=== PATIENT | male | born 1990 | race Caucasian/White ===

== ENCOUNTER 2024-02-06 12:17 | Emergency (ER) | payer OTHER, SELFPAY ==
[2024-02-06 12:25] VITALS: BP 112/82
[2024-02-06 12:45] LABS: % Basophils 0.9 % (0-2); % Eosinophils 1.9 % (0-6); % Immature Granulocytes 0.3 % (0-0.5); % Lymphocytes 28.1 % (20.5-51.1); % Monocytes 5.9 % (1.7-9.3); % Neutrophils 62.9 % (42.2-75.2); Absolute Basophils 0.1 10^3/uL (0-0.2); Absolute Eosinophils 0.1 10^3/uL (0-0.7); Absolute Lymphocytes 1.9 10^3/uL (1.2-3.4); Absolute Monocytes 0.4 10^3/uL (0.1-0.6); Absolute Neutrophils 4.4 10^3/uL (1.4-6.5); Hematocrit 45.7 % (39.0-52.0); Hemoglobin 16.5 g/dL (13.0-18.0); Mean Corp Hgb Conc. 36.1 g/dL (33.0-37.0); Mean Corpuscular Volume 91.4 fL (80.0-94.0); Mean Platelet Volume 9.1 fL (7.4-10.4); Nucleated Red Blood Cells % 0 % (-); Platelet Count 283 10^3/uL (130-400); White Blood Cell Count 6.9 10^3/uL (4.8-10.8)
--- NOTE | 2024-02-06 12:50 | ED.GENMED ---
History of Present Illness
General
Chief Complaint: Flank Pain
Source: patient
Exam Limitations: none
Time Seen by Provider: 02/06/24 12:50
Nursing documentation reviewed up to this point in time: agreed with
Travel History
Have you had any contact with someone who has COVID-19?: No
Do you have any symptoms of coronavirus? Fever > 100 degrees, chills, cough, shortness of breath, sore throat, loss of taste or smell, muscle aches, or headache?: No
History of Present Illness
History of Present Illness:
33-year-old male with history of Crohn's, GERD, kidney stones, anxiety/depression presents with abdominal pain that he states is similar to previous kidney stone pain. States L side abd pain radiates over to right abdomen with 'kidney spasms' on the
left. These have been waxing and waning for a couple of weeks but got worse today. Denies fever/chills, denies n/v.
Has had diarrhea and is followed by his GI doctor for Crohn's and was recently on Xifaxan for 3 weeks[address] Has had neg CT and MRI for that type of abd pain.
Past History
Past History
ED Past Medical History: Psychiatric (Anxiety/depression) and Other (Crohn's disease. Kidney stones)
ED Past Surgical History: Urological (Lithotripsy 09/18) and Other (Terminal ileum removed)
Social History
Tobacco: Smoker
Alcohol: None
Personal: Single
Living: with family (lives with father)
Employment: Not employed
Review of Systems
Review of Systems
Allergies reviewed?: Yes
All Other Systems: ROS reviewed and negative except as documented in HPI and ROS
Constitutional: Denies fever or chills
Respiratory: Denies trouble breathing
Cardiac: Denies chest pain
ABD/GI: Reports abdominal pain and diarrhea (chronic working w his GI doctor for this); Denies nausea, vomiting, constipated, bloody stools or black stools
: Reports flank pain (left); Denies dysuria, frequency, difficulty voiding or urgency
Musculoskeletal: Reports no symptoms
Skin: Reports no symptoms
Neurological: Reports no symptoms
Phy Exam
Physical Exam
Physical Exam:
GENERAL: No acute distress. A&Ox3.
CONSTITUTIONAL: Afebrile.
RESPIRATORY: Regular respirations, nonlabored, lungs clear.
CARDIOVASCULAR: Regular rate and rhythm, no murmurs, no rubs.
GI: Soft, generally mildly tender, no guarding, normal BS
MUSCULOSKELETAL: Moves with ease. Well perfused.
SKIN: Warm, dry, pink
PSYCH: Normal mood and affect. Well kept, interactive and appropriate
NEUROLOGIC: Awake, alert and oriented. No focal neurological deficits
Course
Orders/Labs/Results
Orders:
Orders
02/06/24 12:36
CBC/With Diff [Complete Blood Count/With Diff] Urgent
Comprehensive Metabolic Panel Urgent
Lipase Urgent
Comment: LIPASE ADDED ON BY FLOOR 1PM 02-06-24
Urinalysis Reflex To Culture Urgent
Date Specimen was Collected: 02/06/24
Time Specimen was Collected: 12:28
02/06/24 13:05
Add On- LAB Urgent
Tests Added?: Lipase
02/06/24 13:06
CT Abd/pel Without Iv Or Oral Urgent
Comment:
Reason For Exam: abd pain L kidney pain hx kidney stones
02/06/24 13:07
0.9% Sodium Chloride 1000 ml [Nss] 1,000 ml IV BOLUS
Ketorolac [Toradol] 15 mg IV NOW STA
02/06/24 15:04
Tamsulosin [Flomax] 0.4 mg PO NOW STA
Abnormal Lab Results
02/06/24
12:36
MCH 33.0 H pg
(27.0-31.0)
Chloride 108 H mmol/L
(98-107)
04/12/24 12:36
02/06/24 12:36
Vital Signs
Initial and Last Documented VS:
Initial Vital Signs
Temp Pulse Resp BP Pulse Ox
98.2 F 103 18 112/82 98
02/06/24 12:25 02/06/24 12:25 02/06/24 12:25 02/06/24 12:25 02/06/24 12:25
Last Documented Vital Signs
Temp Pulse Resp BP Pulse Ox
98.2 F 103 18 112/82 98
02/06/24 12:25 02/06/24 12:25 02/06/24 12:25 02/06/24 12:25 02/06/24 12:25
MDM/Problems Addressed
Differential Diagnosis Includes:
Kidney/Ureteral stone, UTI, Crohn's flare,
MDM/Problems Addressed:
33-year-old male with history of Crohn's, GERD, kidney stones, anxiety/depression presents with abdominal pain that he states is similar to previous kidney stone pain. States L side abd pain radiates over to right abdomen with 'kidney spasms' on the
left. These have been waxing and waning for a couple of weeks but got worse today. Denies fever/chills, denies n/v.
Has had diarrhea and is followed by his GI doctor for Crohn's and was recently on Xifaxan for 3 weeks[address] Has had neg CT and MRI for that type of abd pain.
Afebrile, NAD
2:42 PM
CBC normal
CMP normal
UA negative
CT abdomen pelvis plain: Radiology report read: IMPRESSION:
1. Moderate left hydronephrosis and hydroureter secondary to a 6 mm calculus within the mid ureter.
2. Couple of adjacent punctate nephroliths within the midpole of the right kidney.
3. Postoperative findings within the right abdomen suggestive of prior ileocecectomy. Nonspecific submucosal fatty deposition throughout the colon.
Report texted to Dr. Purcell, urology who agrees since no sign of infection, a febrile, not significant pain, he can be placed on Flomax, prescription for pain medicine sent to his pharmacy and he will call his urologist today to make a follow-up
appointment.
Pt is totally comfortable with this plan. Pain is minimal at this time.
*Critical Care Note
Total Time (30-74mins, 75-104mins- exclusive of procedures): Not Applicable
ED Attending Note
-
Portions of this chart may have been created with voice recognition software.� Occasional wrong word or��sound alike� substitutions may have occurred due to the inherent limitations of voice recognition software.
Discharge Plan
Departure
Patient Disposition: Home (Routine Discharge)
Date of Disposition: 02/06/24
Time of Disposition: 15:04
Patient with high blood pressure during this ER visit?: No
Condition: Good
Discharge Problem:
Calculus of left ureter
Instructions: Kidney Stones (DC), How to Strain Your Urine, Narcotic Pain Medication
Prescriptions:
New
tamsulosin [Flomax] 0.4 mg capsule
0.4 mg PO DAILY Qty: 7 0RF
hydrocodone-acetaminophen 5-325 mg tablet
1 tab PO Q6H PRN (Reason: severe pain) Qty: 10 0RF
No Action
sulfamethoxazole-trimethoprim [Bactrim DS] 800-160 mg tablet
1 tab PO BID 7 Days Qty: 14 0RF
Referrals:
[facility], Urology [Other] - Tomorrow
Activity Restrictions/Additional Instructions:
As we discussed, call your urology office today to explain your CAT scan results and ask them when they want to see you for follow-up.
I sent a prescription to your pharmacy for Flomax to take daily, started tomorrow as you were given a dose here today and also for [place] which is hydrocodone to use if needed for significant pain.
Seek medical care immediately for fever, vomiting, worsening pain not relieved with prescribed medication or feeling sicker in any way.
Interventions
Interventions:
*Risk Screen - Suicide Last Done: 02/06/24 12:25
*General Assessment Last Done: 02/06/24 12:25
*Neglect/Abuse Screening Last Done: 02/06/24 12:25
*Nursing Disposition Last Done: 02/06/24 15:42
FM-Hlyluv-Dhoflacpam Assessment Last Done: 02/06/24 13:25
ED-Male Genitourinary Assessment Last Done: 02/06/24 13:25
Discharge Date and Time
Discharge Date/Time: 02/06/24 15:43
Print Language: MACEDONIAN
[2024-02-06 12:52] LABS: Urine Albumin Negative (Neg - Trace); Urine Bilirubin Negative (Negative); Urine Character Clear (Clear); Urine Color Yellow; Urine Glucose Negative (Negative); Urine Ketone Negative (Negative); Urine Leukocyte Negative (Negative); Urine Nitrite Negative (Negative); Urine Occult Blood Negative (Negative); Urine Urobilinogen Negative (Neg - 1+)
[2024-02-06 13:02] LABS: Potassium 4.2 mmol/L (3.5-5.1)
[2024-02-06 13:03] LABS: ALT (SGPT) 49 U/L (0-50); AST (SGOT) 31 U/L (17-59); Albumin 4.4 g/dl (3.5-5.0); Alkaline Phosphatase 59 U/L (38-126); Blood Urea Nitrogen 14 mg/dl (9-20); Calcium 9.6 mg/dl (8.4-10.2); Carbon Dioxide 25 mmol/L (22-30); Chloride 108 mmol/L (98-107); Glucose 92 mg/dl (70-99); Sodium 136 mmol/L (135-145); Total Bilirubin 0.7 mg/dl (0.2-1.3); eGFR > 60.00
[2024-02-06 13:24] VITALS: BMI 25.9
[2024-02-06] MEDS: NSS 1000 IV (13:24)
[2024-02-06] MEDS: TORADOL 15 MG IV (13:24)
[2024-02-06 13:47] LABS: Lipase 73 U/L (23-300)
[2024-02-06] MEDS: FLOMAX 0.400000000000000022 MG PO (15:17)
== END 2024-02-06 15:43 | disposition home or self-care (01) ==
LOC: EMR 12:17
PROVIDERS: EMERGENCY PHYSICIAN Emergency Medicine; FAMILY PHYSICIAN Internal Medicine
DX: N20.1 Calculus of ureter (principal); F17.200 Nicotine dependence, unspecified, uncomplicated; K50.90 Crohn's disease, unspecified, without complications; K21.9 Gastro-esophageal reflux disease without esophagitis; Z87.442 Personal history of urinary calculi
CPT/HCPCS: 99284; 96374; 96361; 74176; 80053; 81003; 83690; 85025

== ENCOUNTER 2024-03-29 14:26 | Emergency (ER) | payer OTHER, SELFPAY ==
[2024-03-29 14:31] VITALS: BP 119/83
[2024-03-29 15:03] LABS: % Basophils 0.5 % (0-2); % Eosinophils 1.5 % (0-6); % Immature Granulocytes 0.1 % (0-0.5); % Lymphocytes 22.7 % (20.5-51.1); % Monocytes 5.5 % (1.7-9.3); % Neutrophils 69.7 % (42.2-75.2); Absolute Eosinophils 0.1 10^3/uL (0-0.7); Absolute Lymphocytes 1.7 10^3/uL (1.2-3.4); Absolute Monocytes 0.4 10^3/uL (0.1-0.6); Absolute Neutrophils 5.2 10^3/uL (1.4-6.5); Hematocrit 45.1 % (39.0-52.0); Hemoglobin 16.3 g/dL (13.0-18.0); Mean Corp Hgb Conc. 36.1 g/dL (33.0-37.0); Mean Corpuscular Hgb 32.3 pg (27.0-31.0); Mean Corpuscular Volume 89.5 fL (80.0-94.0); Mean Platelet Volume 9.7 fL (7.4-10.4); Nucleated Red Blood Cells % 0 % (-); Platelet Count 275 10^3/uL (130-400); Red Blood Cell Count 5.04 10^6/uL (4.70-6.10); White Blood Cell Count 7.5 10^3/uL (4.8-10.8)
[2024-03-29 15:11] LABS: ALT (SGPT) 34 U/L (0-50); AST (SGOT) 29 U/L (17-59); Albumin 4.2 g/dl (3.5-5.0); Alkaline Phosphatase 67 U/L (38-126); Blood Urea Nitrogen 15 mg/dl (9-20); Calcium 9.7 mg/dl (8.4-10.2); Carbon Dioxide 22 mmol/L (22-30); Chloride 108 mmol/L (98-107); Glucose 101 mg/dl (70-99); Potassium 4.1 mmol/L (3.5-5.1); Sodium 138 mmol/L (135-145); Total Bilirubin 0.8 mg/dl (0.2-1.3); eGFR > 60.00
[2024-03-29 15:23] LABS: Urine Albumin Negative (Neg - Trace); Urine Bilirubin Negative (Negative); Urine Glucose Negative (Negative); Urine Ketone Trace (Negative); Urine Leukocyte Negative (Negative); Urine Nitrite Negative (Negative); Urine Occult Blood 2+ (Negative); Urine Specific Gravity 1.025 (<1.030); Urine Urobilinogen Negative (Neg - 1+)
[2024-03-29 15:24] LABS: Urine Character Clear (Clear); Urine Color Yellow
[2024-03-29 15:29] VITALS: BP 102/68
[2024-03-29 15:48] LABS: Urine Mucus Moderate; Urine White Cell 0-2 /HPF (0-5)
== END 2024-03-29 18:56 ==
LOC: EMR 14:26
PROVIDERS: Emergency Medicine
DX: R10.9 Unspecified abdominal pain (principal); Z53.21 Procedure and treatment not carried out due to patient leaving prior to being seen by health care provider
CPT/HCPCS: 99281; 80053; 81003; 81015; 85025

== ENCOUNTER 2024-05-14 10:16 | Emergency (ER) | payer OTHER, SELFPAY ==
[2024-05-14 10:26] VITALS: BP 118/88
--- NOTE | 2024-05-14 10:49 | ED.GENMED ---
History of Present Illness
General
Chief Complaint: Anxiety
Time Seen by Provider: 05/14/24 10:49
History of Present Illness
History of Present Illness:
HPI: Pt has a 'panoply' of complaints. Today, neuro canceled their appointment w/ him due to the computer outage. Came here to see Crisis - described medical complaints including myalgias, lightheadedness, chest discomfort. Mother notes manic
symptoms including pressured speech and tangential thoughts. Tried to see his psychiatrist, but says they are not returning his calls. Also concerned of lack of vitamins in his diet.
EXAM:
GENERAL: Well appearing in no distress
HEENT: Moist oral mucosa
CARDIOVASCULAR: Regular rate and rhythm
PULMONARY: No respiratory distress, breathing is nonlabored, equal and clear breath sounds
ABDOMEN: Soft and nontender with no peritoneal signs
NEUROLOGIC: Excellent strength all extremities; no coordination deficits
EXTREMITIES: Non tender; no edema
PYSCHIATRIC: Reasonable insight and judgement, speech is not pressured, borderline for tangential thoughts
TIME OF INITIAL ENCOUNTER: 11am
NUMBER AND COMPLEXITY OF PROBLEMS ADDRESSED AT THE ENCOUNTER
� Chronic conditions affecting care: Anxiety/depression; Crohn's w/ TI removed; kidney stones
� Acute Exacerbation and/or Progression of Chronic Illness: This is an acute problem
� Differential Diagnosis includes: Exacerbation of bipolar, anxiety/depression, electrolyte abnormality
AMOUNT AND/OR COMPLEXITY OF DATA TO BE REVIEWED AND ANALYZED
� I performed an independent evaluation of and my interpretation is:
EKG: sinus 66, normal axis, no acute st abnormality
CT:
X-rays:
Laboratory Studies: CBC, CMP, trop, CK normal, B12/folate normal
Other:
� Review of other/old records: Was seen and evaluated here by Crisis Jun (reviewed note).
� Clinical information was obtained by an independent historian: Spoke to mother at bedside
� Prescriptions/Medications Considered but not given:
� Further testing considered but not performed:
RISK OF COMPLICATIONS AND/OR MORBIDITY OR MORTALITY OF PATIENT MANAGEMENT
� Social determinants of health affecting care: Lives at home
� Discussion with other providers: Discussed with Crisis - we will medically evaluate, then likely will go back to Crisis for their further assessment
� Escalation of care including admission/observation vs risk of discharge considered: Gave his usual dose of Klonopin. Labs unremarkable. EKG normal. To go back to Crisis now that he is medically cleared.
Past History
Past History
ED Past Medical History: Psychiatric (Anxiety/depression) and Other (Crohn's disease. Kidney stones)
ED Past Surgical History: Urological (Lithotripsy 09/18) and Other (Terminal ileum removed)
Social History
Tobacco: Smoker
Alcohol: None
Personal: Single
Living: with family (lives with father)
Employment: Not employed
Phy Exam
Physical Exam
Physical Exam:
See HPI
Course
Orders/Labs/Results
Orders:
Orders
05/14/24 11:01
0.9% Sodium Chloride 1000 ml [Nss] 1,000 ml IV BOLUS
05/14/24 11:05
Electrocardiogram (*1) Urgent
Reason for Study: Chest Pain
EKG- Treatment ONCE
05/14/24 11:38
B12 [Vitamin B12] Urgent
Complete Blood Count/With Diff Urgent
Comprehensive Metabolic Panel Urgent
Creatine Phosphokinase Urgent
Folate Urgent
TSH Reflex To Free T4 Urgent
Troponin I Urgent
05/14/24 12:38
Nicotine [Nicoderm Transdermal] 21 mg TRANSDERM NOW STA
05/14/24 13:17
Clonazepam [Klonopin] 0.25 mg PO NOW STA
Abnormal Lab Results
05/14/24
11:38
MCH 32.6 H pg
(27.0-31.0)
05/14/24 11:38
05/14/24 11:38
Vital Signs
Initial and Last Documented VS:
Initial Vital Signs
Temp Pulse Resp BP Pulse Ox
97.5 F 99 16 118/88 98
05/14/24 10:26 05/14/24 10:26 05/14/24 10:26 05/14/24 10:26 05/14/24 10:26
Last Documented Vital Signs
Temp Pulse Resp BP Pulse Ox
97.5 F 68 16 118/88 99
05/14/24 10:26 05/14/24 12:00 05/14/24 10:05/14/24 10:05/14/24 13:00
*Critical Care Note
Total Time (30-74mins, 75-104mins- exclusive of procedures): Not Applicable
ED Attending Note
-
Portions of this chart may have been created with voice recognition software.� Occasional wrong word or��sound alike� substitutions may have occurred due to the inherent limitations of voice recognition software.
Discharge Plan
Departure
Patient Disposition: Home (Routine Discharge)
Date of Disposition: 05/14/24
Time of Disposition: 12:47
Patient with high blood pressure during this ER visit?: Yes
Discharge Problem:
Anxiety
Instructions: Anxiety, Adult (DC)
Prescriptions:
No Action
sulfamethoxazole-trimethoprim [Bactrim DS] 800-160 mg tablet
1 tab PO BID 7 Days Qty: 14 0RF
tamsulosin [Flomax] 0.4 mg capsule
0.4 mg PO DAILY Qty: 7 0RF
hydrocodone-acetaminophen 5-325 mg tablet
1 tab PO Q6H PRN (Reason: severe pain) Qty: 10 0RF
Referrals:
Derek Booth MD [Family Provider] -
Activity Restrictions/Additional Instructions:
Go back over to Crisis now for their assessment. Basic blood work is normal as well as testing for heart attack and the blood test for muscle breakdown (CK level).
Interventions
Interventions:
*Risk Screen - Suicide Last Done: 05/14/24 10:26
*General Assessment Last Done: 05/14/24 10:26
*Neglect/Abuse Screening Last Done: 05/14/24 10:26
Discharge Date and Time
Print Language: MONEGASQUE
[2024-05-14 11:28] VITALS: BMI 25.7
[2024-05-14] MEDS: NSS 1000 IV (11:39)
[2024-05-14 11:52] LABS: % Basophils 0.7 % (0-2); % Eosinophils 1.6 % (0-6); % Immature Granulocytes 0.2 % (0-0.5); % Lymphocytes 29.4 % (20.5-51.1); % Monocytes 6.4 % (1.7-9.3); % Neutrophils 61.7 % (42.2-75.2); Absolute Eosinophils 0.1 10^3/uL (0-0.7); Absolute Lymphocytes 1.8 10^3/uL (1.2-3.4); Absolute Monocytes 0.4 10^3/uL (0.1-0.6); Absolute Neutrophils 3.8 10^3/uL (1.4-6.5); Hemoglobin 16.3 g/dL (13.0-18.0); Mean Corp Hgb Conc. 36.2 g/dL (33.0-37.0); Mean Corpuscular Hgb 32.6 pg (27.0-31.0); Mean Platelet Volume 9.3 fL (7.4-10.4); Nucleated Red Blood Cells % 0 % (-); Platelet Count 293 10^3/uL (130-400); White Blood Cell Count 6.1 10^3/uL (4.8-10.8)
[2024-05-14 12:06] LABS: ALT (SGPT) 39 U/L (0-50); AST (SGOT) 35 U/L (17-59); Albumin 4.1 g/dl (3.5-5.0); Alkaline Phosphatase 65 U/L (38-126); Blood Urea Nitrogen 12 mg/dl (9-20); Calcium 9.7 mg/dl (8.4-10.2); Carbon Dioxide 29 mmol/L (22-30); Chloride 104 mmol/L (98-107); Creatine Phosphokinase 62 U/L (55-170); Estimated Creatinine Clearance 87 ml/min; Glucose 95 mg/dl (70-99); Potassium 4.3 mmol/L (3.5-5.1); Sodium 137 mmol/L (135-145); Total Bilirubin 0.8 mg/dl (0.2-1.3); Total Protein 6.5 g/dl (6.3-8.2); eGFR > 60.00
[2024-05-14 12:35] LABS: TSH Reflex To Free T4 2.09 uIU/ml (0.47-4.68)
[2024-05-14 12:43] LABS: Troponin I < 0.012 ng/ml
[2024-05-14 13:00] VITALS: BP 118/81
[2024-05-14 13:11] LABS: Folate 5.4 ng/ml (2.76-20); Vitamin B12 325 pg/ml (239-931)
[2024-05-14] MEDS: NICODERM TRANSDERMAL 21 MG TRANSDERM (13:24)
[2024-05-14] MEDS: KLONOPIN 0.25 MG PO (13:24)
[2024-05-14 14:08] VITALS: BP 120/88
== END 2024-05-14 14:09 | disposition home or self-care (01) ==
LOC: EMR 10:16
PROVIDERS: EMERGENCY PHYSICIAN Emergency Medicine; FAMILY PHYSICIAN Internal Medicine
DX: R07.89 Other chest pain (principal); M79.10 Myalgia, unspecified site; R42 Dizziness and giddiness; F41.9 Anxiety disorder, unspecified; R03.0 Elevated blood-pressure reading, without diagnosis of hypertension; F32.A Depression, unspecified; K50.90 Crohn's disease, unspecified, without complications; F17.200 Nicotine dependence, unspecified, uncomplicated; Z87.442 Personal history of urinary calculi; Z88.1 Allergy status to other antibiotic agents; Z88.8 Allergy status to other drugs, medicaments and biological substances
CPT/HCPCS: 99284; 96360; 80053; 82550; 82607; 82746; 84443; 84484; 85025; 93005

== ENCOUNTER 2024-09-08 12:19 | Emergency (ER) | payer OTHER, SELFPAY ==
[2024-09-08 12:22] VITALS: BP 130/92
--- NOTE | 2024-09-08 13:01 | ED.GENMED ---
History of Present Illness
General
Chief Complaint: Crisis Evaluation
Source: patient and family
Time Seen by Provider: 09/08/24 12:41
History of Present Illness
History of Present Illness:
34-year-old male who presents concerned that he has been mentally declining. He admits that for 14 years he had been on benzodiazepines and slowly realized that his ability to care for himself and to be cognitively sharp had been declining. He
feels like he has lost creativity. He stopped benzodiazepines back in April. States he still has some episodes of insomnia. Denies headaches. Has been followed by his psychiatrist. Is scheduled for intensive outpatient therapy tomorrow.
Past History
Past History
ED Past Medical History: Psychiatric (Anxiety/depression) and Other (Crohn's disease. Kidney stones)
ED Past Surgical History: Urological (Lithotripsy 09/18) and Other (Terminal ileum removed)
Social History
Tobacco: Smoker
Alcohol: None
Personal: Single
Living: with family (lives with father)
Employment: Not employed
Phy Exam
Physical Exam
Physical Exam:
CONSTITUTIONAL Patient alert and oriented to person, place and time. Well-appearing. Vital signs reviewed.
HEAD atraumatic, normocephalic.
EYES eyelids normal to inspection, Extraocular muscles intact, Conjunctiva normal, Sclera normal.
NECK normal range of motion, Trachea midline, no jugular venous distention.
RESPIRATORY CHEST No respiratory distress noted, Chest expansion equal, Bilateral breath sounds clear.
CARDIOVASCULAR regular rate and rhythm, Heart sounds normal.
ABDOMEN No distention.
BACK normal inspection, no obvious deformities
UPPER EXTREMITY range of motion normal, Motor strength normal, no cyanosis, no edema.
LOWER EXTREMITY range of motion normal, Motor strength normal, no cyanosis, no edema.
NEURO Speech normal, No focal motor deficits, [place] coma scale 15, Memory normal, Cranial Nerves intact to screening exam.
SKIN skin warm, dry, and normal in color.
Course
Orders/Labs/Results
Orders:
Orders
09/08/24 12:26
Crisis Consult Urgent
Reason for Consult: SI without plan
09/08/24 13:01
CT Head W/o Iv Contrast Urgent
Comment:
Reason For Exam: change in ms
09/08/24 13:26
Complete Blood Count/With Diff Urgent
Comprehensive Metabolic Panel Urgent
Abnormal Lab Results
09/08/24
13:26
MCH 32.0 H pg
(27.0-31.0)
09/08/24 13:26
09/08/24 13:26
Vital Signs
Initial and Last Documented VS:
Initial Vital Signs
Temp Pulse Resp BP Pulse Ox
98.4 F 111 18 130/92 98
09/08/24 12:22 09/08/24 12:22 09/08/24 12:22 09/08/24 12:22 09/08/24 12:22
Last Documented Vital Signs
Temp Pulse Resp BP Pulse Ox
98.4 F 99 16 100/68 97
09/08/24 12:22 09/08/24 13:24 09/08/24 13:24 09/08/24 13:24 09/08/24 13:24
MDM/Problems Addressed
MDM/Problems Addressed:
Change in mental status, for benzodiazepine use
*Radiology
Radiology exam reviewed: radiology read reviewed
*Pulse Oximetry
Patient hypoxic: no
*Critical Care Note
Total Time (30-74mins, 75-104mins- exclusive of procedures): Not Applicable
Data Reviewed
Source: patient and family
Patient Management
Discussion with other providers: Other (Case discussed with hospital tray service worker)
Escalation/DeEscalation of care consider admission/obs:
34-year-old male who presents feeling like he is mentally declined but in fact it sounds like he has a somewhat improved since stopping benzodiazepines. I suspect since he was on him for 14 years he will take some time to normalize. He has
outpatient intensive care starting tomorrow. He denies suicidal ideation
ED Attending Note
-
Portions of this chart may have been created with voice recognition software.� Occasional wrong word or��sound alike� substitutions may have occurred due to the inherent limitations of voice recognition software.
Discharge Plan
Departure
Patient Disposition: Home (Routine Discharge)
Date of Disposition: 09/08/24
Time of Disposition: 15:48
Patient with high blood pressure during this ER visit?: No
Discharge Problem:
Altered mental status
Prescriptions:
No Action
sulfamethoxazole-trimethoprim [Bactrim DS] 800-160 mg tablet
1 tab PO BID 7 Days Qty: 14 0RF
tamsulosin [Flomax] 0.4 mg capsule
0.4 mg PO DAILY Qty: 7 0RF
hydrocodone-acetaminophen 5-325 mg tablet
1 tab PO Q6H PRN (Reason: severe pain) Qty: 10 0RF
Referrals:
UNKNOWN - PT DOES,NOT KNOW [Family Provider] -
Activity Restrictions/Additional Instructions:
Please do not miss your appointment tomorrow. Return immediately for thoughts of suicide, worsening symptoms, weakness of any kind, fevers, vomiting or any other concerns.
Interventions
Interventions:
*Risk Screen - Suicide Last Done: 09/08/24 12:26
*General Assessment Last Done: 09/08/24 12:26
*Neglect/Abuse Screening Last Done: 09/08/24 12:26
ED- Fall Risk Assessment Last Done: 09/08/24 13:24
*ED COVID-19 Vaccine History Last Done: 09/08/24 13:24
ED-Psychological Assessment Last Done: 09/08/24 13:24
Discharge Date and Time
Print Language: GIBRALTARIAN
[2024-09-08 13:24] VITALS: BP 100/68; BMI 21.8
[2024-09-08 13:43] LABS: % Basophils 0.3 % (0-2); % Eosinophils 0.3 % (0-6); % Immature Granulocytes 0.3 % (0-0.5); % Lymphocytes 26.4 % (20.5-51.1); % Neutrophils 65.7 % (42.2-75.2); Absolute Lymphocytes 1.7 10^3/uL (1.2-3.4); Absolute Monocytes 0.4 10^3/uL (0.1-0.6); Absolute Neutrophils 4.2 10^3/uL (1.4-6.5); Hemoglobin 16.3 g/dL (13.0-18.0); Mean Corp Hgb Conc. 36.2 g/dL (33.0-37.0); Mean Corpuscular Volume 88.2 fL (80.0-94.0); Nucleated Red Blood Cells % 0 % (-); Platelet Count 263 10^3/uL (130-400); Red Cell Dist. Width 12.4 % (11.5-14.5); White Blood Cell Count 6.3 10^3/uL (4.8-10.8)
[2024-09-08 13:55] LABS: ALT (SGPT) 29 U/L (0-50); AST (SGOT) 26 U/L (17-59); Albumin 4.9 g/dl (3.5-5.0); Alkaline Phosphatase 65 U/L (38-126); Blood Urea Nitrogen 14 mg/dl (9-20); Calcium 9.9 mg/dl (8.4-10.2); Carbon Dioxide 24 mmol/L (22-30); Chloride 104 mmol/L (98-107); Estimated Creatinine Clearance 101 ml/min; Glucose 91 mg/dl (70-99); Potassium 3.9 mmol/L (3.5-5.1); Sodium 140 mmol/L (135-145); Total Bilirubin 0.6 mg/dl (0.2-1.3); Total Protein 7.6 g/dl (6.3-8.2); eGFR > 60.00
[2024-09-08 16:28] VITALS: BP 111/75
== END 2024-09-08 16:29 | disposition home or self-care (01) ==
LOC: EMR 12:19
PROVIDERS: EMERGENCY PHYSICIAN Emergency Medicine
DX: R41.82 Altered mental status, unspecified (principal); G47.00 Insomnia, unspecified; F17.200 Nicotine dependence, unspecified, uncomplicated
CPT/HCPCS: 99284; 70450; 80053; 85025

== ENCOUNTER 2024-11-05 12:36 | Emergency (ER) | payer OTHER, SELFPAY ==
[2024-11-05 12:48] VITALS: BP 109/78
--- NOTE | 2024-11-05 12:48 | ED.GENMED ---
ED Provider Triage
<Leonel Harris PA-C - Last Filed: 11/05/24 12:53>
-
Patient seen by provider in Triage?: Seen in Triage
34-year-old male presents with bilateral flank pain worsening over the past week. He has had multiple stones in the past. His last CAT scan was performed around June and he was told he had multiple stones in each kidneys. Concern with
bilateral flank pain that he might have to active ureteral stones. He notes difficulty urinating and abdominal bloating as well. No vomiting or fever. He has had stents in his ureters before
Vital signs are stable at triage. Will start workup with basic labs urinalysis and perform CT scan without contrast to evaluate for ureterolithiasis
Seen by healthcare provider at triage but warrants further assessment
History of Present Illness
<Leonel Harris PA-C - Last Filed: 11/05/24 12:53>
General
Chief Complaint: Flank Pain
Time Seen by Provider: 11/05/24 13:55
<Mukesh Mota MD - Last Filed: 11/05/24 16:26>
General
Source: patient
Exam Limitations: none
History of Present Illness
History of Present Illness:
34-year-old male with months of abdominal discomfort. Mostly left lower quadrant. Patient is convinced this is kidney stone related. Pain has been worse the last 3 days. Some mild nausea and bloating at times. No fever. No urinary symptoms or
change in bowels.
Past History
<Leonel Harris PA-C - Last Filed: 11/05/24 12:53>
Past History
ED Past Medical History: Psychiatric (Anxiety/depression) and Other (Crohn's disease. Kidney stones)
ED Past Surgical History: Urological (Lithotripsy 09/18) and Other (Terminal ileum removed)
Social History
Tobacco: Smoker
Alcohol: None
Personal: Single
Living: with family (lives with father)
Employment: Not employed
Review of Systems
<Mukesh Mota MD - Last Filed: 11/05/24 16:26>
Review of Systems
All Other Systems: Not applicable
Constitutional: Denies fever or chills
Respiratory: Reports no symptoms
Cardiac: Reports no symptoms
Phy Exam
<Mukesh Mota MD - Last Filed: 11/05/24 16:26>
Physical Exam
Physical Exam:
GENERAL: Alert and oriented in no apparent distress
EYE: Orbits normal.
NECK: Supple
CARDIAC: Regular rate and rhythm without any obvious murmurs.
LUNGS: Clear breath sounds,normal
ABDOMEN: Soft, without focal tenderness or distention. No CVA tenderness
NEUROLOGICAL: Alert and oriented , grossly non-focal
SKIN: Warm and dry, no rash or lesion, no discoloration, skin intact.
MUSCULOSKELETAL: No edema,no deformity.Good color
PSYCH: Normal and appropriate interaction.
Course
<Leonel Harris PA-C - Last Filed: 11/05/24 12:53>
Orders/Labs/Results
Orders:
Orders
11/05/24 12:51
CT Abd/pel Without Iv Or Oral Urgent
Comment:
Reason For Exam: flank pain
11/05/24 12:58
Complete Blood Count/With Diff Urgent
Comprehensive Metabolic Panel Urgent
Lipase Urgent
11/05/24 15:13
Urinalysis Reflex To Culture Urgent
Date Specimen was Collected: 11/05/24
Time Specimen was Collected: 14:07
11/05/24 16:18
Calcium 200mg(Ca. Carb. 500mg) [Tums Chewable Tablet] 200 mg PO NOW STA
Abnormal Lab Results
11/05/24
12:58
MCH 32.1 H pg
(27.0-31.0)
11/05/24 12:58
11/05/24 12:58
Vital Signs
Initial and Last Documented VS:
Initial Vital Signs
Temp Pulse Resp BP Pulse Ox
97.8 F 125 16 109/78 98
11/05/24 12:48 11/05/24 12:48 11/05/24 12:48 11/05/24 12:48 11/05/24 12:48
Last Documented Vital Signs
Temp Pulse Resp BP Pulse Ox
97.8 F 99 18 120/83 100
11/05/24 12:48 11/05/24 14:28 11/05/24 14:28 11/05/24 14:28 11/05/24 14:28
<Mukesh Mota MD - Last Filed: 11/05/24 16:26>
Orders/Labs/Results
Orders:
Orders
11/05/24 12:51
CT Abd/pel Without Iv Or Oral Urgent
Comment:
Reason For Exam: flank pain
11/05/24 12:58
Complete Blood Count/With Diff Urgent
Comprehensive Metabolic Panel Urgent
Lipase Urgent
11/05/24 15:13
Urinalysis Reflex To Culture Urgent
Date Specimen was Collected: 11/05/24
Time Specimen was Collected: 14:07
11/05/24 16:18
Calcium 200mg(Ca. Carb. 500mg) [Tums Chewable Tablet] 200 mg PO NOW STA
Abnormal Lab Results
11/05/24
12:58
MCH 32.1 H pg
(27.0-31.0)
11/05/24 12:58
11/05/24 12:58
Vital Signs
Initial and Last Documented VS:
Initial Vital Signs
Temp Pulse Resp BP Pulse Ox
97.8 F 125 16 109/78 98
11/05/24 12:48 11/05/24 12:48 11/05/24 12:48 11/05/24 12:48 11/05/24 12:48
Last Documented Vital Signs
Temp Pulse Resp BP Pulse Ox
97.8 F 99 18 120/83 100
11/05/24 12:48 11/05/24 14:28 11/05/24 14:28 11/05/24 14:28 11/05/24 14:28
<Mukesh Mota MD - Last Filed: 11/05/24 16:26>
*Radiology
Radiology exam reviewed: radiology read reviewed (3 mm obstructing stone with 1 mm obstructing stone)
*Pulse Oximetry
Patient hypoxic: no
*Critical Care Note
Total Time (30-74mins, 75-104mins- exclusive of procedures): Not Applicable
<Mukesh Mota MD - Last Filed: 11/05/24 16:26>
Update Note
Update Note:
Patient updated and nontoxic in no distress. Advil Motrin Tylenol. Flomax. Urologic follow-up
ED Attending Note
<Leonel Harris PA-C - Last Filed: 11/05/24 12:53>
-
Portions of this chart may have been created with voice recognition software.� Occasional wrong word or��sound alike� substitutions may have occurred due to the inherent limitations of voice recognition software.
Discharge Plan
Departure
Patient Disposition: Home (Routine Discharge)
Date of Disposition: 11/05/24
Time of Disposition: 16:25
Patient with high blood pressure during this ER visit?: No
Discharge Problem:
Obstructing left ureteral kidney stone
Instructions: Kidney Stones (DC), BLOOD PRESSURE
Prescriptions:
No Action
sulfamethoxazole-trimethoprim [Bactrim DS] 800-160 mg tablet
1 tab PO BID 7 Days Qty: 14 0RF
tamsulosin [Flomax] 0.4 mg capsule
0.4 mg PO DAILY Qty: 7 0RF
hydrocodone-acetaminophen 5-325 mg tablet
1 tab PO Q6H PRN (Reason: severe pain) Qty: 10 0RF
Referrals:
Derek Booth MD [Family Provider] - Follow up in 2-3 days
Theron Boo MD [Active] - Follow up in 5-7 days
Interventions
Interventions:
*Risk Screen - Suicide Last Done: 11/05/24 12:48
*Neglect/Abuse Screening Last Done: 11/05/24 12:48
UE-Xxkxnu-Udfsuaiede Assessment Last Done: 11/05/24 14:28
ED-Male Genitourinary Assessment Last Done: 11/05/24 14:28
Discharge Date and Time
Print Language: ARMENIAN
[2024-11-05 13:07] LABS: % Basophils 0.5 % (0-2); % Eosinophils 1.5 % (0-6); % Immature Granulocytes 0.2 % (0-0.5); % Lymphocytes 30.2 % (20.5-51.1); % Monocytes 7.5 % (1.7-9.3); % Neutrophils 60.1 % (42.2-75.2); Absolute Eosinophils 0.1 10^3/uL (0-0.7); Absolute Lymphocytes 1.9 10^3/uL (1.2-3.4); Absolute Monocytes 0.5 10^3/uL (0.1-0.6); Absolute Neutrophils 3.7 10^3/uL (1.4-6.5); Hematocrit 47.5 % (39.0-52.0); Hemoglobin 16.9 g/dL (13.0-18.0); Mean Corp Hgb Conc. 35.6 g/dL (33.0-37.0); Mean Corpuscular Hgb 32.1 pg (27.0-31.0); Mean Corpuscular Volume 90.3 fL (80.0-94.0); Mean Platelet Volume 9.3 fL (7.4-10.4); Nucleated Red Blood Cells % 0 % (-); Platelet Count 234 10^3/uL (130-400); Red Blood Cell Count 5.26 10^6/uL (4.70-6.10); Red Cell Dist. Width 11.5 % (11.5-14.5); White Blood Cell Count 6.1 10^3/uL (4.8-10.8)
[2024-11-05 13:18] LABS: ALT (SGPT) 24 U/L (0-50); AST (SGOT) 23 U/L (17-59); Albumin 4.8 g/dl (3.5-5.0); Alkaline Phosphatase 63 U/L (38-126); Blood Urea Nitrogen 11 mg/dl (9-20); Calcium 9.6 mg/dl (8.4-10.2); Carbon Dioxide 25 mmol/L (22-30); Chloride 103 mmol/L (98-107); Glucose 96 mg/dl (70-99); Lipase 93 U/L (23-300); Sodium 138 mmol/L (135-145); Total Bilirubin 0.6 mg/dl (0.2-1.3); Total Protein 7.5 g/dl (6.3-8.2); eGFR > 60.00
[2024-11-05 14:28] VITALS: BP 120/83
[2024-11-05 15:23] LABS: Urine Albumin Negative (Neg - Trace); Urine Bilirubin Negative (Negative); Urine Character Clear (Clear); Urine Color Straw; Urine Glucose Negative (Negative); Urine Ketone Negative (Negative); Urine Leukocyte Negative (Negative); Urine Nitrite Negative (Negative); Urine Occult Blood Negative (Negative); Urine Urobilinogen Negative (Neg - 1+)
[2024-11-05] MEDS: TUMS CHEWABLE TABLET 200 MG PO (16:31)
== END 2024-11-05 16:43 | disposition home or self-care (01) ==
LOC: EMR 12:36
PROVIDERS: Physician Assistant; EMERGENCY PHYSICIAN Emergency Medicine; FAMILY PHYSICIAN Internal Medicine
DX: N13.2 Hydronephrosis with renal and ureteral calculous obstruction (principal); K50.90 Crohn's disease, unspecified, without complications; F17.200 Nicotine dependence, unspecified, uncomplicated
CPT/HCPCS: 99284; 74176; 80053; 81003; 83690; 85025

== ENCOUNTER 2024-12-14 14:30 | Emergency (ER) | payer OTHER, SELFPAY ==
--- NOTE | 2024-12-14 14:48 | ED.GENMED ---
ED Provider Triage
<Jalen Meneses PA-C - Last Filed: 12/14/24 14:48>
-
Patient seen by provider in Triage?: Seen in Triage
Attestation: A medical screening examination has been initiated by a qualified medical provider. Based on the assessment performed at this time, it has been determined that an emergent medical condition may exist and the patient has been informed
that further medical evaluation and possible additional diagnostic testing may be needed.
HPI: Brought to the emergency department for generalized suicidal thoughts. No plan or intent. Patient wanting to go to inpatient facility. Patient placed on one-to-one observation and brought back into the emergency department. Labs ordered.
Crisis consult ordered.
GENERAL: Alert , in no apparent distress
EYE: No visual abnormalities.
NECK: Trachea midline
ENT: No visible abnormalities.
LUNGS: No acute respiratory distress
NEUROLOGICAL: Alert and oriented
SKIN: Skin intact. No visible changes.
MUSCULOSKELETAL: Moving extremities normally
PSYCH: Normal and appropriate interaction.
This is a medical evaluation conducted in person to initiate diagnostic evaluation and provide initial therapeutics. Please see further documentation by the treating clinician.
History of Present Illness
<Jalen Meneses PA-C - Last Filed: 12/14/24 14:48>
General
Chief Complaint: Crisis Evaluation
Time Seen by Provider: 12/14/24 16:30
<Camilo Mandujano DO - Last Filed: 12/14/24 17:11>
General
Source: patient and family
Exam Limitations: none
History of Present Illness
History of Present Illness:
See MDM
Past History
<Jalen Meneses PA-C - Last Filed: 12/14/24 14:48>
Past History
ED Past Medical History: Psychiatric (Anxiety/depression) and Other (Crohn's disease. Kidney stones)
ED Past Surgical History: Urological (Lithotripsy 09/18) and Other (Terminal ileum removed)
Social History
Tobacco: Smoker
Alcohol: None
Personal: Single
Living: with family (lives with father)
Employment: Not employed
Phy Exam
<Camilo Mandujano DO - Last Filed: 12/14/24 17:11>
Physical Exam
Physical Exam:
See MDM
Course
<Jalen Meneses PA-C - Last Filed: 12/14/24 14:48>
Orders/Labs/Results
Orders:
Orders
12/14/24 14:32
1:1 Observation - Suicide/ Violent Behavior As Directed
Crisis Consult Urgent
Reason for Consult: suicidal ideation, thoughts, no action or plan
12/14/24 15:21
Complete Blood Count/With Diff Urgent
Comprehensive Metabolic Panel Urgent
Urine Drug Abuse Screen Urgent
Date Specimen was Collected: 12/14/24
Time Specimen was Collected: 15:20
12/14/24 16:55
Penicillin V Potassium [Pen Vk] 250 mg PO NOW STA
Abnormal Lab Results
12/14/24
15:21
MCH 31.7 H pg
(27.0-31.0)
RDW 11.4 L %
(11.5-14.5)
Sodium 134 L mmol/L
(135-145)
Chloride 97 L mmol/L
(98-107)
Albumin 5.2 H g/dl
(3.5-5.0)
Ur Tricyclics Screen Positive H
(Negative)
12/14/24 15:21
12/14/24 15:21
Vital Signs
Initial and Last Documented VS:
Initial Vital Signs
Temp Pulse Resp BP Pulse Ox
98.5 F 110 20 110/74 95
12/14/24 14:49 12/14/24 14:49 12/14/24 14:49 12/14/24 14:49 12/14/24 14:49
Last Documented Vital Signs
Temp Pulse Resp BP Pulse Ox
98.8 F 89 19 121/85 98
12/14/24 15:22 12/14/24 15:22 12/14/24 15:22 12/14/24 15:22 12/14/24 15:22
<Camilo Mandujano, DO - Last Filed: 12/14/24 17:11>
Orders/Labs/Results
Orders:
Orders
12/14/24 14:32
1:1 Observation - Suicide/ Violent Behavior As Directed
Crisis Consult Urgent
Reason for Consult: suicidal ideation, thoughts, no action or plan
12/14/24 15:21
Complete Blood Count/With Diff Urgent
Comprehensive Metabolic Panel Urgent
Urine Drug Abuse Screen Urgent
Date Specimen was Collected: 12/14/24
Time Specimen was Collected: 15:20
12/14/24 16:55
Penicillin V Potassium [Pen Vk] 250 mg PO NOW STA
Abnormal Lab Results
12/14/24
15:21
MCH 31.7 H pg
(27.0-31.0)
RDW 11.4 L %
(11.5-14.5)
Sodium 134 L mmol/L
(135-145)
Chloride 97 L mmol/L
(98-107)
Albumin 5.2 H g/dl
(3.5-5.0)
Ur Tricyclics Screen Positive H
(Negative)
12/14/24 15:21
12/14/24 15:21
Vital Signs
Initial and Last Documented VS:
Initial Vital Signs
Temp Pulse Resp BP Pulse Ox
98.5 F 110 20 110/74 95
12/14/24 14:49 12/14/24 14:49 12/14/24 14:49 12/14/24 14:49 12/14/24 14:49
Last Documented Vital Signs
Temp Pulse Resp BP Pulse Ox
98.8 F 89 19 121/85 98
12/14/24 15:22 12/14/24 15:22 12/14/24 15:22 12/14/24 15:22 12/14/24 15:22
<Camilo Mandujano, DO - Last Filed: 12/14/24 17:11>
MDM/Problems Addressed
Differential Diagnosis Includes:
HPI and MDM Narrative:
34-year-old male presenting with concern for manic episodes. Patient states he was diagnosed with anxiety and depression many years ago. He weaned himself off Klonopin 7 months ago and is concerned that he has prolonged benzodiazepine withdrawal.
Patient has outpatient therapist and psychiatrist. He states the psychiatrist wants to start him on Trileptal but he is concerned about taking new medicines. He states his medicines are now having adverse effect on him. He is nervous to take his
own Seroquel or Remeron as well. He denies suicidal or homicidal ideations. On my exam, he does appear depressed and hopeless but denies any thoughts of hurting himself or others. His mother is at bedside as well indicating that she is concerned
the patient is not thriving and doing well. [facility] had already seen him. Patient is interested in inpatient to have this further evaluated.
He is not necessarily interested in new medicines but is concerned that the root cause of his symptoms is unknown. Patient is even scared to take Augmentin for a dental infection but is willing to try penicillin. Will write for [facility] Granados
Patient does not appear to be an imminent threat to himself or others and is not a candidate for 302. [facility] is aware and patient medically cleared for transfer to [facility] for bed search
Physical exam
General: Well appearing and non-toxic
HEENT: protecting airway. Poor dentition with mild gingival erythema to left lower incisor. No obvious abscess noted
Neck: appears supple
CV: No evidence of cyanosis
Resp: No accessory muscle use
Abd: Non-distended
Extremities: No deformities
Neuro: alert
Psych: Normal affect
Skin: Intact
Problems Addressed including Acute and Chronic Conditions affecting care:
1. Depression
Acuity: acute
Prognosis: unstable
Details: [facility] will start bed search
2. Dental infection
Acuity: acute
Prognosis: stable
Details: Given his distress and Augmentin, will start Pen-Vee K
Differential Diagnosis (but not limited to): Depression, bipolar, dental infection
Testing considered: CT head but he has no focal neurodeficits
Drug therapy (if applicable): OTC meds, please see d/c instruction regarding Rx drugs
Amount and/or Complexity of Data Reviewed
Clinical info obtained from: Patient. Mother states that this has been ongoing for the past 7 months or so
External data reviewed: N/A
Labs I independently reviewed (but not limited to): Electrolytes without clinically relevant abnormality
Radiology: N/A
Pulse Ox: not hypoxic
EKG independently reviewed: N/A
Cna: N/A
Critical Care: N/A
Risk of Complication:
Social Determinants of health: Good social support
Discussed with other providers: Crisis
Escalation of Care includes Admit/Obs: Crisis will start bed search
Occasional wrong word or 'sound a like' substitutions may have occurred due to the inherent limitations of voice recognition software. Read the chart carefully and recognize, using context, where substitutions have occurred.
<Camilo Mandujano DO - Last Filed: 12/14/24 17:11>
*Critical Care Note
Total Time (30-74mins, 75-104mins- exclusive of procedures): Not Applicable
ED Attending Note
<Jalen Meneses PA-C - Last Filed: 12/14/24 14:48>
-
Portions of this chart may have been created with voice recognition software.� Occasional wrong word or��sound alike� substitutions may have occurred due to the inherent limitations of voice recognition software.
Discharge Plan
Departure
Patient Disposition: Psych Facility
Date of Disposition: 12/14/24
Time of Disposition: 17:10
Patient with high blood pressure during this ER visit?: No
Discharge Problem:
Depression, Dental infection
Instructions: Depression, Adult (DC)
Prescriptions:
New
penicillin V potassium 250 mg tablet
250 mg PO Q6H 7 Days Qty: 28 0RF
No Action
sulfamethoxazole-trimethoprim [Bactrim DS] 800-160 mg tablet
1 tab PO BID 7 Days Qty: 14 0RF
tamsulosin [Flomax] 0.4 mg capsule
0.4 mg PO DAILY Qty: 7 0RF
hydrocodone-acetaminophen 5-325 mg tablet
1 tab PO Q6H PRN (Reason: severe pain) Qty: 10 0RF
Activity Restrictions/Additional Instructions:
Please go directly to [facility] crisis for bed placement.
Interventions
Interventions:
*Risk Screen - Suicide Last Done: 12/14/24 14:31
*Neglect/Abuse Screening Last Done: 12/14/24 14:55
ED- Fall Risk Assessment Last Done: 12/14/24 15:29
*ED COVID-19 Vaccine History Last Done: 12/14/24 14:49
ED-Psychological Assessment Last Done: 12/14/24 15:29
Discharge Date and Time
Print Language: KINYARWANDA
[2024-12-14 14:49] VITALS: BP 110/74
[2024-12-14 15:22] VITALS: BP 121/85
[2024-12-14 15:42] LABS: % Basophils 0.4 % (0-2); % Eosinophils 0.1 % (0-6); % Immature Granulocytes 0.3 % (0-0.5); % Lymphocytes 28.7 % (20.5-51.1); % Monocytes 6.8 % (1.7-9.3); % Neutrophils 63.7 % (42.2-75.2); Absolute Lymphocytes 2.1 10^3/uL (1.2-3.4); Absolute Monocytes 0.5 10^3/uL (0.1-0.6); Absolute Neutrophils 4.6 10^3/uL (1.4-6.5); Hematocrit 47.5 % (39.0-52.0); Hemoglobin 17.2 g/dL (13.0-18.0); Mean Corp Hgb Conc. 36.2 g/dL (33.0-37.0); Mean Corpuscular Hgb 31.7 pg (27.0-31.0); Mean Corpuscular Volume 87.6 fL (80.0-94.0); Mean Platelet Volume 9.4 fL (7.4-10.4); Nucleated Red Blood Cells % 0 % (-); Platelet Count 298 10^3/uL (130-400); Red Blood Cell Count 5.42 10^6/uL (4.70-6.10); Red Cell Dist. Width 11.4 % (11.5-14.5); White Blood Cell Count 7.2 10^3/uL (4.8-10.8)
[2024-12-14 15:51] LABS: Amphetamines Negative (Negative); Barbiturates Negative (Negative); Benzodiazepines Negative (Negative); Buprenorphine Negative (Negative); Cocaine Negative (Negative); Marijuana Negative (Negative); Methadone Negative (Negative); Methamphetamines Negative (Negative); Opiates Negative (Negative); Phencyclidine Negative (Negative); Tricyclic Antidepressants Positive (Negative)
[2024-12-14 15:53] LABS: ALT (SGPT) 21 U/L (0-50); AST (SGOT) 23 U/L (17-59); Albumin 5.2 g/dl (3.5-5.0); Alkaline Phosphatase 83 U/L (38-126); Blood Urea Nitrogen 11 mg/dl (9-20); Calcium 9.6 mg/dl (8.4-10.2); Carbon Dioxide 25 mmol/L (22-30); Chloride 97 mmol/L (98-107); Glucose 91 mg/dl (70-99); Potassium 3.9 mmol/L (3.5-5.1); Sodium 134 mmol/L (135-145); Total Protein 7.7 g/dl (6.3-8.2); eGFR > 60.00
--- NOTE | 2024-12-15 16:08 | EDRN ---
Pt left from crisis area at 1900 on 12/14/24
== END 2024-12-14 19:00 ==
LOC: EMR 14:30
PROVIDERS: Emergency Medicine; Physician Assistant Medical; EMERGENCY PHYSICIAN Student in an Organized Health Care Education/Training Program
DX: R45.851 Suicidal ideations (principal); K04.7 Periapical abscess without sinus; F32.A Depression, unspecified; F41.9 Anxiety disorder, unspecified; K50.90 Crohn's disease, unspecified, without complications; Z87.442 Personal history of urinary calculi; F17.200 Nicotine dependence, unspecified, uncomplicated; Z88.8 Allergy status to other drugs, medicaments and biological substances
CPT/HCPCS: 99285; 80053; 80306; 85025

== ENCOUNTER 2025-03-20 09:13 | Inpatient (IN) | payer OTHER, SELFPAY ==
[2025-03-19] VITALS (12 sets, daily range): BP systolic 99–110; BP diastolic 72–92; BMI 18.9
[2025-03-19 12:35] LABS: % Basophils 0.2 % (0-2); % Immature Granulocytes 0.4 % (0-0.5); % Lymphocytes 15.8 % (20.5-51.1); % Monocytes 6.8 % (1.7-9.3); % Neutrophils 76.8 % (42.2-75.2); Absolute Lymphocytes 1.3 10^3/uL (1.2-3.4); Absolute Monocytes 0.6 10^3/uL (0.1-0.6); Absolute Neutrophils 6.3 10^3/uL (1.4-6.5); Hematocrit 52.2 % (39.0-52.0); Hemoglobin 18.3 g/dL (13.0-18.0); Mean Corp Hgb Conc. 35.1 g/dL (33.0-37.0); Mean Corpuscular Volume 91.3 fL (80.0-94.0); Mean Platelet Volume 10.3 fL (7.4-10.4); Nucleated Red Blood Cells % 0 % (-); Platelet Count 187 10^3/uL (130-400); Red Blood Cell Count 5.72 10^6/uL (4.70-6.10); Red Cell Dist. Width 13.4 % (11.5-14.5); White Blood Cell Count 8.2 10^3/uL (4.8-10.8)
[2025-03-19 12:49] LABS: AST (SGOT) 32 U/L (17-59); Albumin 4.9 g/dl (3.5-5.0); Alkaline Phosphatase 64 U/L (38-126); Blood Urea Nitrogen 30 mg/dl (9-20); Calcium 9.8 mg/dl (8.4-10.2); Carbon Dioxide 23 mmol/L (22-30); Chloride 103 mmol/L (98-107); Glucose 165 mg/dl (70-99); Potassium 4.5 mmol/L (3.5-5.1); Sodium 145 mmol/L (135-145); Total Bilirubin 2.2 mg/dl (0.2-1.3); eGFR > 60.00
--- NOTE | 2025-03-19 12:56 | ED.GENMED ---
History of Present Illness
General
Chief Complaint: Failure to Thrive
Source: patient
Exam Limitations: none
Time Seen by Provider: 03/19/25 12:27
Nursing documentation reviewed up to this point in time: agreed with
History of Present Illness
History of Present Illness:
34-year-old male presents emergency department due to not eating or drinking and loss of appetite for the past week. They are concerned it is due to his akathisia, resultant from medications given in the past. He states he is having medication
withdrawal from Ambien and benzodiazepines, and SSRI. The last time he took any of his medications was in November.
Past History
Past History
ED Past Medical History: Psychiatric (Anxiety/depression) and Other (Crohn's disease. Kidney stones)
ED Past Surgical History: Urological (Lithotripsy 09/18) and Other (Terminal ileum removed)
Social History
Tobacco: Smoker
Alcohol: None
Personal: Single
Living: with family (lives with father)
Employment: Not employed
Review of Systems
Review of Systems
Allergies reviewed?: Yes
All Other Systems: Not applicable
Constitutional: Reports weight loss
EENT: Reports no symptoms
Respiratory: Reports no symptoms
Cardiac: Reports no symptoms
ABD/GI: Reports no symptoms
: Reports no symptoms
Musculoskeletal: Reports edema
Skin: Reports no symptoms
Neurological: Reports no symptoms
Endocrine: Reports no symptoms
Hematologic/Lymphatic: Reports no symptoms
Psychiatric: Reports no symptoms
Phy Exam
Physical Exam
Physical Exam:
Physical Exam
General: no apparent distress, not acutely ill
Neck: supple. no meningeal signs. normal posterior pharynx
Heart: s1/s2 tachycardia, no murmur. equal radial
pulses.
HEENT: Pupils equal round reactive to light, EOMI
Lungs: no acute respiratory distress. clear bilaterally
Abdomen: normal bowel sounds. not tender. no CVAT
Neuro: alert and oriented. no focal neurological deficits cranial nerves II through XII intact
Skin: no rash
Psychiatric: well kept. interactive and cooperative
Extremities: Bilateral pedal edema. no calf tenderness. negative homans. good distal pulses
Course
Orders/Labs/Results
Orders:
Orders
03/19/25 12:26
Electrocardiogram (*1) Urgent
Reason for Study: Tachycardia
EKG- Treatment ONCE
03/19/25 12:28
CMP [Comprehensive Metabolic Panel] Urgent
Complete Blood Count/With Diff Urgent
TSH Reflex To Free T4 Urgent
Comment: ADD ON
03/19/25 12:55
IV Insert/Care/Rem.- Treatment PRN
0.9% Sodium Chloride 1000 ml [Nss] 1,000 ml IV BOLUS
03/19/25 15:43
Urinalysis Reflex To Culture Urgent
Date Specimen was Collected: 03/19/25
Time Specimen was Collected: 15:42
Urine Microscopic Reflex Cult Urgent
Urine Culture Urgent
JOSTIN Source: U
Specimen Description:
Date Specimen was Collected: 03/19/25
Time Specimen was Collected: 15:42
03/19/25 16:27
Urine Drug Abuse Screen Urgent
03/19/25 16:28
Add On- LAB Urgent
Tests Added?: tsh reflex to T4
03/19/25 16:29
Troponin I Routine
03/19/25 17:21
Abdomen/Pelvis wo Contrast CT [CT Abd/pelvis Wo Iv Cont] Urgent
Comment:
Reason For Exam: kidney stone pain
Venous Doppler Lwr Ext Bilat [US Periph Venous LOWER Ext Cheo] Urgent
Comment:
Reason For Exam: edema
03/19/25 17:22
NEUROLOGY CONSULT Routine
Consulting Provider: Gaston Nieves
Was physician already notified: Yes
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
DDimer [D-Dimer] Urgent
03/19/25 17:23
PSYCHIATRY CONSULT Routine
Consulting Provider: Naomi Napoles
Was physician already notified: Yes
Reason for consult: EMotional iinstability. ? Psychiatric illness
Abnormal Lab Results
03/19/25 03/19/25
12:28 15:43
Hgb 18.3 H g/dL
(13.0-18.0)
Hct 52.2 H %
(39.0-52.0)
MCH 32.0 H pg
(27.0-31.0)
Neutrophils % 76.8 H %
(42.2-75.2)
Lymphocytes % 15.8 L %
(20.5-51.1)
BUN 30 H mg/dl
(9-20)
Glucose 165 H mg/dl
(70-99)
Total Bilirubin 2.2 H mg/dl
(0.2-1.3)
Urine Ketones 3+ A
(Negative)
Ur Occult Blood Reflex 2+ A
(Negative)
Urine Bilirubin 2+ A
(Negative)
Urine Urobilinogen 2+ A
(Neg - 1+)
Leukocyte Esterase Rfl 1+ A
(Negative)
Urine Bacteria (Reflex) Few A
(Negative)
Urine Albumin (Reflex) 3+ A
(Neg - Trace)
03/19/25 12:28
03/19/25 12:28
Vital Signs
Initial and Last Documented VS:
Initial Vital Signs
Resp
28
03/19/25 12:17
Last Documented Vital Signs
Temp Pulse Resp BP Pulse Ox
98.1 F 159 15 110/83 85
03/19/25 12:39 03/19/25 17:00 03/19/25 17:00 03/19/25 17:00 03/19/25 13:15
MDM/Problems Addressed
Differential Diagnosis Includes:
Medication reaction, hypovolemia
MDM/Problems Addressed:
34-year-old male with hypovolemia, unclear if medication reaction or withdrawal. Admit to hospitalist, IV fluids given.
Chronic conditions affecting care: Psychiatric illness and Other (Crohn's)
*Pulse Oximetry
Patient hypoxic: no
*EKG
Interpreted by ED Provider?: Yes
EKG Intrepretation Date: 03/19/25
EKG Intrepretation Time: 12:35
Interpretation: abnormal
Comparison EKG: no changes
Heart Rate: 153
Rate: tachycardiac
Rhythm: sinus tachycardia
[place]: normal axis
Interval: normal interval
QRS Pattern: normal QRS
Ischemia: non-specific ST changes
*Furniture Installer Interpretation
Rate: tachycardiac
Interpretation: abnormal
Heart Rate: 153
Rhythm: sinus tachycardia
*Critical Care Note
Total Time (30-74mins, 75-104mins- exclusive of procedures): Not Applicable
Patient Management
Social determinants of health affecting care: Living situation and Strong social support
Discussion with other providers: Hospitalist
Escalation/DeEscalation of care consider admission/obs:
admit indicated
ED Attending Note
-
Portions of this chart may have been created with voice recognition software.� Occasional wrong word or��sound alike� substitutions may have occurred due to the inherent limitations of voice recognition software.
Discharge Plan
Departure
Patient Disposition: Admit
Date of Disposition: 03/19/25
Time of Disposition: 14:00
Admit to: Telemetry
Presentation/result/management discussed w/ accepting MD/DO: Hospitalist
Patient with high blood pressure during this ER visit?: No
Condition: Fair
Discharge Problem:
Hypovolemia, Failure to thrive
Prescriptions:
No Action
No Current Medications
0
Referrals:
Derek Booth MD [Family Provider] -
Interventions
Interventions:
*Risk Screen - Suicide Last Done: 03/19/25 12:39
*General Assessment Last Done: 03/19/25 12:39
*Neglect/Abuse Screening Last Done: 03/19/25 12:39
*ED- Fall Risk Assessment Last Done: 03/19/25 17:15
*ED COVID-19 Vaccine History Last Done: 03/19/25 17:12
Discharge Date and Time
Print Language: UZBEK
[2025-03-19 13:18] LABS: ALT (SGPT) < 30 U/L (0-50)
[2025-03-19] MEDS: NSS 1000 IV (15:41)
[2025-03-19 15:54] LABS: Urine Albumin 3+ (Neg - Trace); Urine Bilirubin 2+ (Negative); Urine Character Slightly Cloudy (Clear); Urine Color Yellow; Urine Glucose Negative (Negative); Urine Ketone 3+ (Negative); Urine Leukocyte 1+ (Negative); Urine Nitrite Negative (Negative); Urine Occult Blood 2+ (Negative); Urine Specific Gravity 1.025 (<1.030); Urine Urobilinogen 2+ (Neg - 1+)
[2025-03-19 15:59] LABS: Urine Mucus Moderate
[2025-03-19 16:00] LABS: Urine Granular Cast 0-2 /LPF (0); Urine Red Blood Cell 0-2 /HPF (0-2)
[2025-03-19 16:01] LABS: Urine Bacteria Few (Negative)
--- NOTE | 2025-03-19 16:24 | HPS.HSE ---
Family Physician
-
Family Physician: Derek Booth
Chief Complaint
-
Poor p.o. intake
History of Present Illness
33-year-old man was brought in because of poor p.o. intake for the past week . Patient lives in [place] in an apartment with his father. Mother lives an hour away. She is crepe box tender for 3 days a week through the insurance. Patient gets
frustrated when he gives a history mom tries to help but history gets complicated when they both try to explain things. It took me a long time to get history and this is what I found out.
Patient has been on Klonopin 1 mg p.o. 3 times daily through a PCP since 2009. In 2022 that PCP stopped taking his insurance and also they became a benzo free clinic. He was given 2 months of prescription for Klonopin and was advised to taper down
and find another PCP. Patient tapered down to 0.25 twice daily. Then he was seen at [facility] and the psychiatric provider kept the same dose for the next 10 months. Then he went off after going to a detox program in April 2024. So he has been off
of Klonopin since April 2024. 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
He also has a history of Crohn's disease-mom states that he mostly has irritable bowel syndrome with constipation predominance (IBS-C) . He also has a history of terminal ileum resection. Mom states that Crohn's is not active now and he is not on
any medicines. He sees a GI doctor Dr. Thornton at [place]. He was prescribed Linzess which was stopped in November 2023, Skyrizi which was stopped in 2023. Due to intolerance
He has also seen an ENT doctor Dr. Rafi Lowe in [place] last year and per his was prescribed omeprazole towards the end of last year. He stopped that 2 weeks later because of intolerance.
Patient states that he has had poor p.o. intake for the past 1 to 2 weeks. He cannot lay down flat he sits up most of the time. Light, dark, rain, cold, heat everything bothers him. When he lays down flat he has his hard hurting. Poor p.o.
intake started in November and has been getting worse. He feels bloated when he eats and he face he states that his kidney stones hurt when he eats. He states that he is happy that the water goes to his legs and not to his kidneys because
otherwise it would hurt and his kidney stone pain will come back. He thinks he has acathisia. He feels electric shocks in his head and kidney stone pain when he eats. He also has symptoms of restlessness, rage and he cries. Symptoms come and go.
He has seen a neurologist Dr. Liliana Rice with [facility]. Patient lost about 60 pounds per mom. Patient denies any dysphagia. He states that if he eats salty food or food with sugar he gets all the symptoms aggravated. He is able to
swallow but when he swallows and gets the food down he thinks his kidney stone pain comes back.
He has also seen a psychiatrist at [facility] Dr. López . Said that Dr. López wanted to prescribe the medicines but he could not take it due to fear of complications.
In terms of his kidney stones he has a history of 7 kidney stone surgeries and has seen a urologist-[facility] in [place]. He has also seen an sap analyst Dr. Kadi Arciniega in [place].
He is mostly managed by owner oral surgeon provider now. They have done several testing in his 24-hour urine
Found his norepinephrine level was slightly elevated in the 24-hour urine 44-upper limit being 35 normetanephrine was 45 upper limit being 44.8 epinephrine 10.3 upper limit being 6.2. Ratio of norepinephrine and epinephrine 4.3
Other levels for kininurine, 3 hydroxykininurine,Xanthurinic acid with in range
Heavy metals- iodine, bromelin, selenium, lithium, arsenic, Cadmium, mercury, lithium, arsenic were within normal limits
Patient also had tryptophan, serotonin, 5-HIAA, NAKITA, glycine, taurine, glutamate, glutamine, histidine, histamine, and-mesial histamine, PE, tyrosine, tyramine, dopamine, DO PAC, HVA-within range
Medical History
Past Medical History
Past Medical History: Reports Psychiatric (Anxiety and depression)
Additional Past Medical History:
Crohn's disease, kidney stones, Chronic back pain, GERD
Past Surgical History: Reports Other
Additional Past Surgical History:
History of lithotripsy and terminal ileum resection, facial cyst surgery, surgery for tongue-tie at age 3
Social History
Tobacco: Non-smoker
Drug: Marijuana (in the past)
Personal: Single
Living: With Family (father)
Employment: Not Employed
Family History
Family History: Cancer (mom skin cancer) and Other (Dad- ADHD)
Allergies / Home Medications
Allergies reflects when Allergies were last updated in [facility].
Home Medications with original date entered in [facility]
Allergy/Medication List:
Allergies
Allergy/AdvReac Type Severity Reaction Status Date / Time
cefaclor [From Ceclor] Allergy Hives Verified 03/19/25 12:39
dexamethasone [From Decadron] AdvReac restless Verified 03/19/25 12:39
droperidol AdvReac Unknown Verified 03/19/25 12:39
prednisone AdvReac manic Verified 03/19/25 12:39
aggressive
behavior
Home Medications
No Meds [No Current Medications] 03/19/25
Review of Systems
-
A 12 point ROS was completed and negative except as noted: Yes
Respiratory: Denies Trouble Breathing
Cardiac: Denies Chest Pain
Abdomen/GI: Reports Abdominal Pain
Neurological: Reports Dizzy, Headache and Weakness
Psych: Reports Anxiety, Panic Disorder and Eating Disorder; Denies Suicidal
Physical Exam
Vital Signs
Vital Signs
Temp Pulse Resp BP Pulse Ox
98.1 F 159 17 100/88 85
03/19/25 12:39 03/19/25 15:30 03/19/25 15:30 03/19/25 15:00 03/19/25 13:15
Physical Exam
General: Cachectic and Other (restless and frustrated)
Respiratory: Clear
Cardiac: S1/S2, Regular Rhythm and Tachycardia
GI: Soft and Non Tender
Genito-urinary: No costovertebral tender
Skin: Warm
Neuro: Awake, Alert, Oriented, Nonfocal/grossly intact and Cranial Nerves Intact; No Slurred Speech, Facial Droop or Tremors
Psych: Anxious
Laboratory Results
-
03/19/25 12:28
03/19/25 12:28
Laboratory Results
Total Bilirubin 2.2 mg/dl (0.2-1.3) H 03/19/25 12:28
AST 32 U/L (17-59) 03/19/25 12:28
ALT < 30 U/L (0-50) 03/19/25 12:28
Alkaline Phosphatase 64 U/L (38-126) 03/19/25 12:28
Data Reviewed
-
Medical Tests (Nuc Med, Echo, EKG etc): Image Personally Visualized and interpreted (EKG-sinus tachycardia ST-T changes anterolateral leads)
Impression/Plan
-
IMPRESSION/PLAN:
34-year-old with multiple symptoms has seen multiple providers in the past. Does not take any medicines in fear of side effects/intolerance.
# Poor p.o. intake/protein calorie malnutrition
Dietary evaluation
Speech evaluation
Psychiatric evaluation
Neurology evaluation given all the symptoms he is describing
MRI of the brain with personality change and above symptoms.
Start Thiamine PO
# Lower extremity edema-check ultrasound to rule out DVT
# Tachycardia
Check TSH reflex to T4
Troponin
Echo
D-dimer
Even if D-dimer is positive patient does not want to get CT angiogram as he is afraid of the dye even though there is no documented allergy.
If D-dimer is positive he will need VQ scan
# Crohn's disease-not on any treatment
Last colonoscopy was done through in 2022 - ' everything was fine ' per mom
# IBS-C - Not on treatment
# Nephrolithiasis - Get Ct A/P with pain described
# GERD- Not taking PPI now
# DVT Prophylaxis- Lovenox
# Full CODE
Check B12, Thiamine and Vit D levels
I had a very detailed conversation with the patient and mom. He seemed to have not wanting to take medications from his past history. We discussed what is their goal or expectation from the hospitalization if he still continues to not wanting to
take medicines. He wants the symptoms to go away , he wants to be hydrated. We discussed that it might be difficult to treat all his conditions without taking medicines which may be recommended during the hospitalization.
Time spent over 75 min
--- NOTE | 2025-03-19 18:15 | EDRN ---
pulse ox entered for 1315 is an error, pt with cold fingers. RN was able to obtain a pulse ox reading of 96-100%.
[2025-03-19 18:32] LABS: TSH Reflex To Free T4 4.22 uIU/ml (0.47-4.68)
--- NOTE | 2025-03-19 18:37 | CON.NEURO ---
Neuro Assessment/Plan
Assessment
head CT 08/2024 imgs rev'd, normal
overall impression would be complex regional pain syndrome I (RSD) sometimes also diagnosed as fibromyalgia, a disorder of sensory processing due to abnormal functional connectivity in the brain. initial management would involve Lyrica and Cymbalta
which he reports not responding well to in the past; other potential treatments include epidural injections (he's had in the past and resulted in urinary retention) or spinal cord stimulation/neurostimulation; some cases may also respond to
marijuana or ketamine. unfortunately I do not have any good ideas as an inpatient
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
Consultation
Order
Date of Consultation: 03/19/25
Requesting Provider: Makeda Cline
Reason for Consult: restlessness, electric shocks in head
Subjective/Objective
Subjective Data
Date of Service: March 19, 2025
from h&p:
33-year-old man was brought in because of poor p.o. intake for the past week . Patient lives in [place] in an apartment with his father. Mother lives an hour away. She is wound care center consultant for 3 days a week through the insurance. Patient gets
frustrated when he gives a history mom tries to help but history gets complicated when they both try to explain things. It took me a long time to get history and this is what I found out.
Patient has been on Klonopin 1 mg p.o. 3 times daily through a PCP since 2009. In 2022 that PCP stopped taking his insurance and also they became a benzo free clinic. He was given 2 months of prescription for Klonopin and was advised to taper down
and find another PCP. Patient tapered down to 0.25 twice daily. Then he was seen at [facility] and the psychiatric provider kept the same dose for the next 10 months. Then he went off after going to a detox program in April 2024. So he has been off
of Klonopin since April 2024. 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
He also has a history of Crohn's disease-mom states that he mostly has irritable bowel syndrome with constipation predominance (IBS-C) . He also has a history of terminal ileum resection. Mom states that Crohn's is not active now and he is not on
any medicines. He sees a GI doctor Dr. Thornton at [place]. He was prescribed Linzess which was stopped in November 2023, Skyrizi which was stopped in 2023. Due to intolerance
He has also seen an ENT doctor Dr. Rafi Lowe in [place] last year and per his was prescribed omeprazole towards the end of last year. He stopped that 2 weeks later because of intolerance.
Patient states that he has had poor p.o. intake for the past 1 to 2 weeks. He cannot lay down flat he sits up most of the time. Light, dark, rain, cold, heat everything bothers him. When he lays down flat he has his hard hurting. Poor p.o.
intake started in November and has been getting worse. He feels bloated when he eats and he face he states that his kidney stones hurt when he eats. He states that he is happy that the water goes to his legs and not to his kidneys because
otherwise it would hurt and his kidney stone pain will come back. He thinks he has acathisia. He feels electric shocks in his head and kidney stone pain when he eats. He also has symptoms of restlessness, rage and he cries. Symptoms come and go.
He has seen a neurologist Dr. Liliana Rice with [facility]. Patient lost about 60 pounds per mom. Patient denies any dysphagia. He states that if he eats salty food or food with sugar he gets all the symptoms aggravated. He is able to
swallow but when he swallows and gets the food down he thinks his kidney stone pain comes back.
He has also seen a psychiatrist at [facility] Dr. López . Said that Dr. López wanted to prescribe the medicines but he could not take it due to fear of complications.
In terms of his kidney stones he has a history of 7 kidney stone surgeries and has seen a urologist-[facility] in [place]. He has also seen an dedicated owner operator Dr. Kadi Arciniega in [place].
He is mostly managed by commercial portfolio manager provider now. They have done several testing in his 24-hour urine
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
He is diffusely sensitive to touch, light, noise, smells, tastes, foods, medications, changes in barometric pressure.
Objective Data
Vital Signs
Temp Pulse Resp BP Pulse Ox
36.7 C 160 15 101/83 100
03/19/25 12:39 03/19/25 18:00 03/19/25 17:00 03/19/25 18:00 03/19/25 18:00
Lab Results
03/19/25 12:28
03/19/25 12:28
Sodium 145 mmol/L (135-145) 03/19/25 12:28
Potassium 4.5 mmol/L (3.5-5.1) 03/19/25 12:28
BUN 30 mg/dl (9-20) H 03/19/25 12:28
Glucose 165 mg/dl (70-99) H 03/19/25 12:28
Calcium 9.8 mg/dl (8.4-10.2) 03/19/25 12:28
Patient Allergies
cefaclor [From Ceclor] Allergy (Verified 03/19/25 12:39)
Hives
dexamethasone [From Decadron] Adverse Reaction (Verified 03/19/25 12:39)
restless
droperidol Adverse Reaction (Verified 03/19/25 12:39)
Unknown
prednisone Adverse Reaction (Verified 03/19/25 12:39)
manic aggressive behavior
Physical Exam
-
Away and alert
flat affect
keeps neck in deep flexion position, and when he looks ahead there the cervical lordosis is greatly exaggerated
diffuse allodynia to static/dynamic touch, thinning of nail beds
Medications
-
Active Medications
Generic Name Dose Route Start Last Admin
Trade Name Freq PRN Reason Stop Dose Admin
Sodium Chloride 1,000 mls @ 125 mls/hr 03/19/25 12:55 03/19/25 15:41
Nss IV 03/19/25 20:54 1,000 mls
BOLUS ONE Administration
Home Medications
�Medication �Instructions �Recorded
No Meds [No Current Medications] 03/19/25
[2025-03-19 18:44] LABS: D-Dimer > 20.00 ug/mlFEU (0.00-0.50)
[2025-03-19 19:17] LABS: Vitamin B12 577 pg/ml (239-931); Vitamin D, 25-OH*** 28.8 ng/mL (30-80)
--- NOTE | 2025-03-19 20:22 | EDRN ---
previous shift report was tubed to 423 - EDT went in to take pt to floor then informed this RN that pt was being upgraded from telemetry. This RN sent report to IVU about 10 minutes ago. This RN called to give verbal report and was informed
waiting for provider to return TT as to whether pt must go to IVU or can go somewhere else. Staff will return call to this RN when provider responds.
--- NOTE | 2025-03-19 20:25 | EDRN ---
Informed waiting for Dr Carreon to come evaluate pt then will determine where pt to be placed.
--- NOTE | 2025-03-19 20:41 | EDRN ---
Pt sitting on side of stretcher, hunched over with blankets covering his back. This RN had to readjust monitor stickers/leads. Pt tearful, stating he does not like to be touched. Pt and family informed of delay to bed assignment and that they are
waiting for Dr Carreon to come see pt. Expressed concern that no one has discussed CT result with them - house provider informed.
--- NOTE | 2025-03-19 21:07 | CON.CAR ---
Consultation
Consultation Request
Date/Time Consultation Requested: March 19, 2025
Date/Time Consultation Performed: March 19, 2025
Requesting Provider: Dr. Cline
Performing Provider: Dr. Carreon
Reason for Consultation: Tachycardia, elevated troponin
Medical History
-
Chief Complaint: Pain all over
History of Present Illness:
Marco is a 34-year-old with an extensive psychiatric history, chronic pain, Crohn's, renal calculi, who presents with poor p.o. intake with difficulty eating and drinking over the last 2 weeks. He has also been sitting with his feet on the floor for
the last 2 weeks. He describes pain all over. The patient lives in [place] apartment with his father. Mother lives an hour away and his pet ambassador for 3 days during the week. The patient is very frustrated to give history and feels that even
speaking causes him discomfort.
He had been on Klonopin through PCP since 2009 but in 2022 PCP stopped taking his insurance and the also became a benzo free clinic. He tapered down his dose was seen at [facility] and then went off Klonopin after going to a detox program in April 2024.
He has been off Klonopin since. 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 The patient also has Crohn's disease and irritable bowel syndrome and a history of terminal ileum resection.
He describes inability to lay flat and sits up most of the time. He also has slight heat cold intolerance. It is difficult for him to find it comfortable position. His symptoms started in November but have been progressing. He noted electrical
shocks in his head and kidney stone pain when he eats. He also has symptoms of restlessness rage and cries. Symptoms can come and go. He has seen a neurologist with [facility] and has lost about 60 pounds per his mother. He has seen a
psychiatrist at [facility] Dr. López who wanted to prescribe medications but he could not take them due to concerns about complications. He also follows with a sales attendant building materials provider
Cardiology was consulted for his tachycardia with heart rate 150s. Blood pressure is also on the lower side. His troponin is trending up at 2. He has some dyspnea.
Past medical history:
Psychiatric history including anxiety depression, off all medications
Chronic pain
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
Crohn's with history of terminal ileum resection
History of renal calculi and lithotripsy
Tongue-tie surgery age 3
GERD
Social History
Tobacco: Non-Smoker
Alcohol: None
Drug: Marijuana (In the past)
Personal: Single
Living: With Family
Employment: Not Employed
Family History
Family History: Reviewed & Not Pertinent
Allergies / Home Medications
Allergy/AdvReac Type Severity Reaction Status Date / Time
cefaclor [From Ceclor] Allergy Hives Verified 03/19/25 12:39
dexamethasone [From Decadron] AdvReac restless Verified 03/19/25 12:39
droperidol AdvReac Unknown Verified 03/19/25 12:39
prednisone AdvReac manic Verified 03/19/25 12:39
aggressive
behavior
�Medication �Instructions �Recorded �Confirmed �Type
No Meds [No Current Medications] 03/19/25 03/19/25 History
Review of Systems
-
History Source: Patient
Constitutional: Other (Pain all over)
EENT: Other (Difficulty and pain with eating)
Respiratory: Trouble Breathing
Musculoskeletal: Edema
Endocrine: Temperature Intolerance
Physical Exam
Vital Signs
Temp Pulse Resp BP Pulse Ox
98.1 F 155 15 103/87 100
03/19/25 12:39 03/19/25 20:17 03/19/25 17:00 03/19/25 20:17 03/19/25 18:00
physical examination:
General: Mild distress, AAOX3
Neck: Negative JVD
Heart: Tachycardic, Negative S3 positive S1/S2, Negative S4, No murmur
Lungs: CTA b/l, negative wheezes/rales/rhonchi
Abd: Positive BS, NT/ND, neg rebound/rigidity/guarding
Ext: Negative cyanosis/clubbing. +1-2 bilateral edema
Neuro: nonfocal
Lab Results
03/19/25 12:28
03/19/25 12:28
Troponin I 2.020 ng/ml H* 03/19/25 18:09
Impression / Plan
-
.
Impression:
Dilated RV suscpicious for PE
Tachycardia
Elevated troponin at 2
Elevated D-dimer greater than 20
Lower extremity edema
Poor oral intake
Psychiatric history including anxiety depression, off all medications
Chronic pain
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
Crohn's with history of terminal ileum resection
History of renal calculi and lithotripsy
Plan:
Patient currently refusing beta-ravin therapy. He also refused CT angio of the chest to evaluate for pulmonary embolism. Suspicious for possible PE which could explain his tachycardia, elevated troponin, elevated D-dimer and some of his
symptoms. He was agreeable to urgent echo and lower extremity venous Doppler.
Urgent echo was very limited and technically difficult due to patient poor compliance with the test. However, the right ventricle appeared dilated and hypokinetic concerning for PE. We did discuss IV heparin anticoagulation but he refuses this.
Lower extremity ultrasound is pending as well.
He understands that not treating pulmonary embolus could result in cardiopulmonary arrest and his . He and his father at bedside understand this. His father accepts his son's decision on refusing therapy. Discussed CODE STATUS and they both
agree that he wants to be a DNR. He does not want to be resuscitated or intubated. Called his mother as well to update her on the echo and the patient's refusal for IV heparin and treatment as well as his CODE STATUS. She confirms that the patient
is a DNR and this is noted in his medical power of assistant county attorney paperwork.
He continues to decline medication therapy.
He is receiving IV fluid supplementation.
Continue supportive care
Agree with neurologic and psychiatric evaluations
Discussed with mother at bedside and father at bedside and then mother via phone.
Discussed with primary service
Data Reviewed
-
EKG: Tracing Personally Visualized and interpreted and Discussed with Family
Medical Tests (Nuc Med, Echo etc): Image Personally Visualized and interpreted and Discussed with Family
Labs: Labs Reviewed by me
--- NOTE | 2025-03-19 21:32 | EDRN ---
Report given to Arleen in IMU, asked for 20 minutes to prepare room.
[2025-03-19 22:08] LABS: Amphetamines Negative (Negative); Barbiturates Negative (Negative); Benzodiazepines Negative (Negative); Buprenorphine Negative (Negative); Cocaine Negative (Negative); Marijuana Negative (Negative); Methadone Negative (Negative); Methamphetamines Negative (Negative); Opiates Negative (Negative); Phencyclidine Negative (Negative); Tricyclic Antidepressants Negative (Negative)
--- NOTE | 2025-03-19 23:00 | PTCARENOTE ---
Pt received from ED via stretcher. Pt able to transfer self from stretcher to bed. AAOx3. Appears disheveled. Cachectic. Pt refuses weight, temp, skin assessment, all medications ordered, hygiene care, mouth care. Agreeable to have B/L LE US done.
Pt cannot tolerate any sensory stimulation of any kind. Will frequently request time so he can calm down but will still refuse care. +3 pedal edema, +2 LE edema. Admits to whole body pain 10/10 with varying descriptions of pain. Lungs very
diminished and shallow. POX 83-93%. Attempted to place O2 at 2L NC but pt unable to tolerate oxygen stating 'it's creating pressure in my head.' Continues to be ST 120's-150's. SBP 90's-106. Pt only able to sit on side of bed hunched over. Refuses
to turn or adjust self while sitting. Pt and father educated on need to turn and elevate lower extremities but pt still refuses. Pt states he has lost 60lbs, is not hungry or drinking a lot. Pt states he was surprise he was able to void in ED for
urine sample and stated he usually does not void. Father staying the night. Call gagnon remains within reach.
[2025-03-20] VITALS (10 sets, daily range): BP systolic 93–112; BP diastolic 78–93
--- NOTE | 2025-03-20 00:30 | PTCARENOTE ---
Received call from Radiologist re: B/L LE US. Per radiologist pt has extensive DVT's B/L from femoral down to calves. Malini ASHTON TT'd and made aware. Malini ASHTON up to speak to pt's father. After honest discussion with father then with father and pt
pt has decided against Heparin gtt or SQ Lovenox. Malini ASHTON did explain to pt and pt's father consequences of not going on Heparin gtt which could include . Pt stated he understands and father is supporting pt's request. Pt is DNR. Pt refuses
lab draws for Troponin currently. Will reattempt in am with am labs. Father staying the night. Pt currently sitting on side of bed as this is the only position he can tolerate. Call gagnon remains within reach. Will continue to monitor.
[2025-03-20] MEDS: LOVENOX SC ×2 (01:18→11:20)
--- NOTE | 2025-03-20 03:05 | W.PN.UPDATE ---
Update Note
Progress Note Update
~ 1930 PROPERTY INSURANCE INSPECTOR reached out to about troponin of 2.020 and D-Dimer >20.0. HR in the 150s- 160s. BP 99/78. Pt denies�CP, N/V. Reports SOB. SPO2- >92% on RA. With +3 b/l�lower extremity edema. Reached out to - he came in to assess the pt. Stat
echo and b/l lower extremity ultrasound ordered and obtained. RV dilated but pt still refusing CT scan- d/t the use of contrast. Dr. Carreon discussed the probability of PE and starting heparin. Pt refused and HALIMA Lara (father) aware and at the
bedside. Dr. Carreon clarified and made the pt a DNR.�
~2330 results for the B/L LE US��
Right leg: partially occlusive thrombus proximal to the mid right femoral vein. Occlusive Thrombus distal right femoral vein, right popliteal vein, right posterior tibial and peroneal veins.�
Left Leg: Occlusive thrombus left femoral vein, left popliteal vein, left posterior tibial and peroneal veins.�
Discussed results with pt and HALIMA Lara (father) at the bedside. pt still refusing heparin gtt. Encouraged to at least agree to lovenox- pt refusing this as well. Discussed risks of not starting heparin/ lovenox- (PE, cardiac arrest, stroke).
Clarified again that pt is a DNR, again explaining that this means (No CPR, Compressions, Intubation)- pt and Yair VARGHESE (father) verbalized understanding.�
--- NOTE | 2025-03-20 08:02 | W.PN.CARDCBS ---
Today's Communication / Plan
-
Patient currently refusing beta-ravin therapy as well as IV Heparin. He also refused CT angio of the chest to evaluate for pulmonary embolism.
He has DVT b/l and likely PE with regards to HR and echo findings.
Urgent echo was very limited and technically difficult due to patient poor compliance with the test. However, the right ventricle appeared dilated and hypokinetic concerning for PE.
He understands that not treating pulmonary embolus could result in cardiopulmonary arrest and his . He and his father at bedside understood this nd this was again reiterated.
He is DNR. He does not want to be resuscitated or intubated. His father and mother know and agree with this and his mother confirmed that DNR is noted in his medical power of precision agriculture specialist paperwork.
He continues to decline medication therapy.
Cont to trend troponin if he is agreeable.
He is receiving IV fluid supplementation.
Continue supportive care
Agree with neurologic and psychiatric evaluations
Discussed with primary service
Prognosis is poor. Goals of care discussions ongoing
Impression / Plan
-
.
Impression:
Dilated RV consistent with likely PE
b/l DVT
s/p Atrial Tachycardia, remains sinus tachycardia
Elevated troponin at 2
Elevated D-dimer greater than 20
Lower extremity edema
Poor oral intake
Psychiatric history including anxiety depression, off all medications
Chronic pain
Significant noncompliance with medical recommendations
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
Crohn's with history of terminal ileum resection
History of renal calculi and lithotripsy
Pt is DNR
Plan:
Patient currently refusing beta-ravin therapy as well as IV Heparin. He also refused CT angio of the chest to evaluate for pulmonary embolism.
He has DVT b/l and likely PE with regards to HR and echo findings.
Urgent echo was very limited and technically difficult due to patient poor compliance with the test. However, the right ventricle appeared dilated and hypokinetic concerning for PE.
He understands that not treating pulmonary embolus could result in cardiopulmonary arrest and his . He and his father at bedside understood this nd this was again reiterated.
He is DNR. He does not want to be resuscitated or intubated. His father and mother know and agree with this and his mother confirmed that DNR is noted in his medical power of precision agriculture specialist paperwork.
He continues to decline medication therapy.
Cont to trend troponin if he is agreeable.
He is receiving IV fluid supplementation.
Continue supportive care
Agree with neurologic and psychiatric evaluations
Discussed with primary service
Prognosis is poor. Goals of care discussions ongoing
Progress Note - Lead Data Entry Operator
Subjective
Date of Service: March 20, 2025
Pt seen and examined. No cp.
Objective
Labs:
Labs
Hgb 18.3 g/dL (13.0-18.0) H 03/19/25 12:28
Hct 52.2 % (39.0-52.0) H 03/19/25 12:28
Plt Count 187 10^3/uL (130-400) 03/19/25 12:28
Sodium 145 mmol/L (135-145) 03/19/25 12:28
Potassium 4.5 mmol/L (3.5-5.1) 03/19/25 12:28
BUN 30 mg/dl (9-20) H 03/19/25 12:28
Creatinine 1.0 mg/dL (0.7-1.3) 03/19/25 12:28
Glucose 165 mg/dl (70-99) H 03/19/25 12:28
Troponins
03/19/25
18:09
Troponin I 2.020 H*
Vital Signs and I&O:
Vital Signs
Temp Pulse Resp BP Pulse Ox
98.1 F 132 17 93/78 94
03/19/25 12:39 03/20/25 06:00 03/20/25 06:00 03/20/25 06:00 03/20/25 05:00
Vital Signs
Temp Pulse Resp BP Pulse Ox
98.1 F 132 17 93/78 94
03/19/25 12:39 03/20/25 06:00 03/20/25 06:00 03/20/25 06:00 03/20/25 05:00
Intake & Output
03/18/25 03/19/25 03/20/25 03/21/25
06:59 06:59 06:59 06:59
Intake Total 600 / 600
Balance 600 / 600
Physical Exam
Physical Exam
General: NAD, AAOX3
Neck: Negative JVD
Heart: Tachycardic, Negative S3 positive S1/S2, Negative S4, No murmur
Lungs: CTA b/l, negative wheezes/rales/rhonchi
Abd: Positive BS, NT/ND, neg rebound/rigidity/guarding
Ext: Negative cyanosis/clubbing. +1-2 bilateral edema
Neuro: nonfocal
--- NOTE | 2025-03-20 10:17 | W.PN.HOSP.TC ---
Today's Communication/Plan
-
Psyche eval
VQ scan
If pt agrees will start anticoagulation
Assessment / Plan
Assessment / Plan
Patient was sitting in a dark room with blinds closed and lights turned off. He was seated with his legs hanging. When I turn on the lights he was not happy and wanted the lights to be turned off. Feels the same denies any additional symptoms
today. States that light, sunrise, [place], central air all bothers him.
On examination awake and alert able to communicate
Does not look short of breath
Seated with legs hanging at the edge of the bed
Cardiovascular system S1-S2 tachycardic
Chest clear to auscultation
Abdomen soft and nontender
Bilateral pedal edema venous Doppler bilateral lower extremities-extensive bilateral DVT occlusive and nonocclusive in the right femoral vein, occlusive in the
Venous Doppler 03/19/2025-popliteal vein, peroneal vein and posterior tibial veins.Occlusive DVT in the left femoral vein, popliteal vein, peroneal vein, posterior tibial vein CT abdomen and pelvis
03/19/2025 CT scan abdomen and pelvis-Without contrast-2 mm calcification within the medial aspect of the proximal left ureter unchanged from previous. Resolution of 3 mm in the left ureter from before. Bilateral nephroliths with no significant
ureteral or pelvicalyceal dilatation. Mild to moderate thickening of the distal wall of the ileum suggesting ileitis. Mild gaseous distention of the colon. Moderate gaseous distention of the rectum. No findings of stercoral colitis. No evidence
of free air or free fluid.
Echo 03/19/2025-very limited difficult study. Dilated hypokinetic RV. Dilated RA. No pericardial effusion. No echo for comparison
# Bilateral DVT with presumed PE
D-Dimer over 20
Bilateral DVT
Echo with RV dilatation
Tachycardia slightly better
He is still refusing to go on heparin.
I had a very long discussion with the patient and also discussed that we could treat any symptoms which were to arise from any reaction from Lovenox or heparin he still refusing.
He is aware about complications and even .
Discussed about IVC filter. Discussed with interventional radiology they only do local anesthesia and no sedation which I made the patient aware he still refusing an IVC filter.
VQ scan ordered-I also got in touch with nursing pipe manufacture supervisor.
# Elevated troponin-likely secondary to PE
# Tachycardia-likely secondary to above
# Crohn's disease-not on any treatment-Last colonoscopy was done through in 2022 - ' everything was fine ' per mom
# IBS-C - Not on treatment
# Nephrolithiasis
# Mild vitamin D deficiency-replacement ordered
# GERD- Not taking PPI now
# Protein calorie malnutrition-dietary evaluation. Discussed about patient to take Ensure. He declined.
# DVT Prophylaxis- Refusing Lovenox. Would not use SCDs with this DVT.
# Full CODE
I had a very detailed conversation with the patient regarding his goals of care. He is unsure at this point. We discussed that he came in to the hospital to get help and asked if he would let us help him. He states that he only wants IV fluids.
We discussed about significance of blood clots and PE and could even lead to if untreated. He stated that he does not have any quality of life at this point and is suffering from symptoms. He declined IVC filter, he declined Ensure. At this
point he is willing to do VQ scan which I have ordered. Discussed about elevation of his legs to sit at least in a recliner chair he is refusing that stating that that triggers his symptoms. We discussed about propagation of blood clots and
increasing edema.
Discussed with Dr. Guerrero this morning.
Dr. Guerrero had discussed same with patient's father and mother last night and they are both aware about DNR status and significance of untreated PE.
Discussed with nursing at bedside.
Unfortunately very difficult situation where patient does not letting us know what is needed to take care of his health at this point. He is putting his life in danger by doing this and is aware about this verbalized understanding.
Patient feels that any medicine if he puts in his body is going to trigger allergic reactions and worsen his 'symptoms'. Await psychiatry evaluation.
He requested to turn off the air in his room because that also triggers his symptoms.
High risk situation. Texted Austen Smith.
Time spent over 50 minutes
Anticipated Discharge: > 48 hours
Subjective/Interval History
-
Date of Service: March 20, 2025
Objective Data
-
Labs:
Laboratory Results
03/20/25 03/20/25
01:00 06:00
WBC Pending
Hgb Pending
Hct Pending
Plt Count Pending
APTT Pending
Sodium Pending
Potassium Pending
Chloride Pending
Carbon Dioxide Pending
BUN Pending
Creatinine Pending
Glucose Pending
Calcium Pending
Total Bilirubin Pending
AST Pending
ALT Pending
Alkaline Phosphatase Pending
Vital Signs:
Vital Signs
Temp Pulse Resp BP Pulse Ox
98.1 F 132 17 93/78 94
03/20/25 07:55 03/20/25 06:00 03/20/25 06:00 03/20/25 06:00 03/20/25 05:00
I&O
03/19/25 03/20/25 03/21/25
06:59 06:59 06:59
Intake Total 600 / 600 480 / 480
Balance 600 / 600 480 / 480
--- NOTE | 2025-03-20 12:26 | PTOTSP ---
ST Acute Care Evaluation
This clinical bedside swallowing evaluation was limited; however, it is quite evident that pt's oral, pharyngeal, and esophageal swallowing phases are generally within functional limits. No overt s/s of penetration or aspiration were noted at
bedside with the trials observed during this session.
Pt is currently only consuming water and one brand of apple juice at this time ('natural sugars' per pt), as he believes that consuming any other content will trigger a pain response in his body. Given this information, would consider consultation
to: psych, clinical nutrition, neuro/pain management?. Skilled INFRASTRUCTURE TECH services deemed not warranted at this time. INFRASTRUCTURE TECH to sign off. Please re-consult if needed. Thank you!
--- NOTE | 2025-03-20 13:18 | PTCARENOTE ---
Assumed care of Pt at shift change. Found Pt sitting at edge of bed. s/w Pt at length concerning care plan and Pt made clear to this nurse that he will not take any medication. Pt asked about current diagnosis and possible outcomes - discussed
DVT's and need for anticoagulant medication such as heparin or lovenox. Pt understood risk of life that current clots could pose without medicine. Pt continued to refuse Lovenox and all other medications. Hospitalist made aware. Will continue to
monitor and assess.
--- NOTE | 2025-03-20 14:24 | W.PN.UPDATE ---
Update Note
Progress Note Update
Pt refusing VQ scan. Aware this is to diagnose blood clots and consequences.
Will cancel.
--- NOTE | 2025-03-20 15:32 | PTCARENOTE ---
Received call from X-ray concerning a CXR for [id number] needed for PE/VQ study - tech unsure if could be done due to nuclear med not be here on weekend. Contacted hospitalist and was informed that Nuclear med was being called in. S/w Nuclear med and
found out what test entails - reviewed with Pt and Pt's father - Pt adamantly refused test because it involves injectable medication. Pt continues to refuse most care and all medications. Will continue to monitor and assess.
--- NOTE | 2025-03-20 17:45 | CON.MD ---
Consultation - Medical
-
34 yr old M presenting with b/l DVT and suspected PE, found to have RV dilatation on echo and w/ PMH of Crohn's dz, IBS-C, nephrolithiasis, GERD. Pt found to be malnourished as well. Refusing heparin & IVC filter, declining Ensure. Psychiatry
consulted due to concerns over pts refusal for offered care.
Pt seen at bedside, chart reviewed, dad present in room & mom present on phone (pt did not want to have interview without them). Pt sitting in the dark, legs off side of bed, head hanging down. Reports hx of the following:
2009 was increasingly anxious in context of school stressors, feeling overwhelmed and had 'nervous breakdown' (would not provide further details, but he and parents denied sxs of psychosis or lucy at that time) - was started on prozac, mirtazapine,
seroquel and ambien at that time. Remained on these medication until several months ago at which time he stopped them 'cold turkey' - pt says he had been asking various providers to taper off over the years and they would not (parents did
corroborate this).
SHortly after, also 2009 or 2010, was started on xanax by psychiatrist he was seeing at that time - says he had a seizure and was switched to clonazepam which over the years was titrated to 1mg TID (along with ambien 10mg, seroquel, mirtazapine and
prozac). It is unclear why the other medications were continued, though pt reports increases over the years usually in order to improve sleep (sleep would only improve temporarily). He does note that the non-bzd psychotropics were 'on and off' over
the years and outside of sleep and some benefit to anxiety does not note much else.
The prescription for this was then taken over by family doc for about 10 yrs until about a year ago when he left the practice. Pt reports he was given 2 months of refills at that time - tapered dose down on his own due to fear of not finding someone
to continue prescription, reportedly decreased from 3mg to 0.5mg total daily over the 2 month span. Ambien also reported to have been abruptly stopped at this time.
Jun 2023 started seeing someone at [facility] who continued seroquel, mirtazapine, and clonazepam 0.25mgBID. Prozac at one point stopped, lexapro trialed which helped anxiety but caused emotional blunting.
To note, describes sxs of protracted bzd w/d that started few months after he initially decreased bzd dose. Would be on and off, not consistent and pt reports being able to manage dialy life when sxs were not happening - describes variety of sxs
such as HAs, various body pains, feelings of panic. The specific sxs experienced vary and he has not noted a specific pattern to the variation.
March 2024 went to detox to completely stop bzd. Following this he reports that these various sxs became significantly worse and have been progressively worsening since.
Describes the following: HAs (severe pressure inside of his head), feelings of 'terror', severe body pains, feelings of acute agitation and physical restlessness. Notes that sxs become acutely worse during sunrise & sunset, as well as prior to
storms. Triggers increasing in intensity and variety as well - notes that in recent months he has episodes of sxs caused by magnesium, salt, sugar. Reports that eating and drinking causes these sxs to worsen - he describes severe pain and distress
that starts the moment he starts eating or drinking, sxs are whole body. He describes almost any movement as worsening sxs, so I do wonder if its the movement itself and not the act of eating or drinking that is causing some sort of response.
Says that recently he has been having these sxs constantly in recent months. Now also worsened by phones, television, light. Has been unable to listen to music which was previously his main way of coping.
Parents also note that pt has been having episodes of sudden acute agitation - generally brought on by a 'trigger' but also if increasingly overwhelmed, pts mom reports that 'his voice changes, it gets really high pitched and loud, he starts
screaming 'I can't I can't!', will start cursing and saying very vulgar and out of character things. Pts mother says that 'it's like what you see with people with dementia, he's not himself all of a sudden'. Pt corroborates this, says he maintains
awareness when this happens but is unable to control what he is saying or doing.
To note, pt did refuse V/Q scan today and is DNR. Lengthy discussion has been had with him and his parents about risks of refusing tx, including risk of . Spoke to pt about this as well and his parents, he demonstrates an understanding of his
diagnoses and the various treatment options. He demonstrates an understanding of the risks of refusing the tx options, including risk of . He expresses not wanting to pursue tx for DVT/PE at this time and his parents are in agreement with this
decision.
Pt does admit to depressed mood and hopelessness, though his attributes this to severity of these physical sxs and his inability to engage in any meaningful activities - he does at times make passive statements about not being able to live like this
anymore, however denies acute si.
anxiety d/o unsp. by hx
possibly fixed delusion regarding protracted bzd w/d causing his current physical sxs(?) - I do not think so however, it does appear that whatever the cause may be, pt is indeed having these physical sxs which are progressively worsening and with
episodes of agitation and based on his hx, it is not entirely unreasonable for someone to draw the conclusions that he and his parents have
MSE: male, poor eye contact, speech is nl rate and rhythm though at times can be soft. Mood is overwhelmed, affect is frustrated but appropriate. Denies si/hi/avh/delusions. Thought process is goal directed. Memory not formally tested. AAOx3.
Insight fair, judgement poor.
Ordered add-on lab for Anti-NMDA IgG Abs
- Spoke to pt at length about his sxs - discussed possibility of anxiety as portion of presentation, however this is not typical for even very severe anxiety to present in such a manner. Discussed concerns of possible neurologic autoimmune process
underlying his sxs, in particular given the progressive nature of generalized non-specific sxs and these episodes of agitation with vulgarity and sudden change in personality which also seem to be increasing in frequency. He was partially agreeable
to LP but hesitant and did agree to consider and discuss with his parents today. Ordering bloodwork to check for anti-NMDA IgG Abs in the meantime as screen.
Would consider MRI head
- Pt likely would be unable to tolerate and given nonspecific nature of sxs I am not sure how beneficial MRI would be, however would consider this if pt can be agreeable given these episodes described above which are relatively new onset
Pt not agreeable to any psychotropics or medications at this time - he does have the capacity for refusal of care at this time, and both of his next of kin are in agreement with his decision making
- As noted, I do worry there is an underlying progressive inflammatory/autoimmune mediated neurologic process causing at least some of his presentation. Pt was very receptive to this as a possibility and open to at least investigating, his parents
were receptive as well and if indeed such a diagnosis were made pt would be more receptive to tx options (as noted, his refusal and depression are directly linked to his poor QOL due to progressively worsening sxs).
Spoke to Dr. López who last saw him at [facility] several months ago - saw pt once, similar presentation but with lesser intensity of sxs and not as severe a disruption as now, was also refusing medication at that time.
I do not think acute psychiatric hospitalization would be beneficial at this time - even if there is no underlying process causing his reported sxs, pts presentation is chronic in nature and corroborated and agreed upon by his parents as well, there
is no over psychosis and although depression/anxiety are notable these are due to a very specific cause and are unlikely to improve from a hospital stay unless the underlying cause is addressed.
Psychiatry will follow.
--- NOTE | 2025-03-20 22:49 | PTCARENOTE ---
Assumed care of patient who is most resistant to nursing care. Gentle calm approach utilized to assess patient and attempt to provide care. Pt is resistant to all medications and allows minimal assessment time. He is sitting on side of bed wrapped
in heated blanket and requests frequent replacement of heated blankets. Multiple blankets provided and pt reports this is the only thing he can tolerate. He reports he feels awful and everything is a 'trigger' which causes him to feel internal pain
and intolerance to any sort of stimuli. This RN offered pt medications and each med reviewed with pt. He is able to teach back the rationale for medications but is adamant that he can not put 'anything' into his body. Pt sipping on apple juice and
water. He does raise his head and make eye contact and is currently polite ub declining any care offered to him. Pt remains on IMU monitoring. Pt's father approached this RN at the beginning of shift to report he and his ex- Lolis need to discuss
discharge plan with case management team. Father is tearful and honest in expressing feelings that he is no longer able to care for his son in this condition. Time and emotional support provided for father to vent and express feelings. Assured
father that there is a case management consult and someone will contact them
[2025-03-21] VITALS (9 sets, daily range): BP systolic 96–109; BP diastolic 70–97; BMI 18.9
[2025-03-21] MEDS: LOVENOX SC ×2 (02:24→12:30)
--- NOTE | 2025-03-21 03:38 | PTCARENOTE ---
Patient discussing current state of health with this RN. Pt denies suicidal ideation but does admit to feeling like there is 'nothing can help him' his po intake has been poor for months and the foods and beverages that he once could tolerate are no
longer tolerable. He describes everything(food, meds, moving, IVF,etc.) as a 'trigger' to increasing his internal pain that feels like shocks and sharp knife pains. Pt continues to refuse any medications. Warm blankets around his shoulders are the
only thing he is accepting of at this time. Pt continues to sit on side of bed with feet on floor, fit are increasingly swollen and painful. Pt is able to stand with 1 assist to us urinal for dark yellow urine. Pt verbalizes understanding of the
DVTs in his legs and the seriousness of them, as well as the lethal result they may cause from being untreated. Position changes, OOB to chair offered to patient with focus on comfort and elevating the legs, Pt adamantly refuses anything and begins
to express anger. Pt will lean back into bed but again refuses to elevate legs or allow staff to assist
--- NOTE | 2025-03-21 09:42 | CM ---
Addendum entered by Dyan Rashid 03/21/25 12:08:
Patient does not meet inpatient hospice at this time. Attending in agreement.
CM sent SNF/Hospice Referrals to facilities in [place] and near [place]; requested Hospice Agency affiliation contact if patient accepted.
Patient's mother lives in [place] and would prefer a site near her if possible.
Addendum entered by Dyan Rashid 03/21/25 10:02:
Hospice Care referral sent to Hospice as ordered
Original Note:
Met with patient and his mother at bedside
Pharmacy verified: [address] [facility] [address], [place]
Patient lives w/ father; multilevel home; 6 steps to enter; 12 steps between floors; railings on stairs; powder room 1st floor; his bedroom and bath on 2nd floor; bath has tub w/shower
PLOF: requires assistance w/ personal care; not eating or drinking; has not bathed in months
Mother reports that she or his father cannot care for him in the home
NO SNF or Home Health utilization history
Offered Hospice Care Consult; patient is agreeable; Attending notified of request
Agreeable to going to SNF on Hospice if referral accepted; mother requested sending referrals [place] facilities [place] [id number] or [id number]
Discharge plan to be determined
--- NOTE | 2025-03-21 09:47 | PTCARENOTE ---
Pt AAOx3, pleasant and cooperative , refusing all care and all meds, Pt and mother to talk with case management re Hospice. Will support pt and family through this transition.
--- NOTE | 2025-03-21 10:38 | W.PN.HOSP.TC ---
Today's Communication/Plan
-
Hospice consult
Assessment / Plan
Assessment / Plan
Patient was sitting in a dark room with blinds closed and lights turned off. He was seated with his legs hanging. When I turn on the lights he was not happy and wanted the lights to be turned off. Feels the same denies any additional symptoms
today. States that light, sunrise, [place], central air all bothers him.
On examination awake and alert able to communicate
Does not look short of breath
Seated with legs hanging at the edge of the bed
Cardiovascular system S1-S2 tachycardic
Chest clear to auscultation
Abdomen soft and nontender
Bilateral pedal edema venous Doppler bilateral lower extremities-extensive bilateral DVT occlusive and nonocclusive in the right femoral vein, occlusive in the
Venous Doppler 03/19/2025-popliteal vein, peroneal vein and posterior tibial veins.Occlusive DVT in the left femoral vein, popliteal vein, peroneal vein, posterior tibial vein CT abdomen and pelvis
03/19/2025 CT scan abdomen and pelvis-Without contrast-2 mm calcification within the medial aspect of the proximal left ureter unchanged from previous. Resolution of 3 mm in the left ureter from before. Bilateral nephroliths with no significant
ureteral or pelvicalyceal dilatation. Mild to moderate thickening of the distal wall of the ileum suggesting ileitis. Mild gaseous distention of the colon. Moderate gaseous distention of the rectum. No findings of stercoral colitis. No evidence
of free air or free fluid.
Echo 03/19/2025-very limited difficult study. Dilated hypokinetic RV. Dilated RA. No pericardial effusion. No echo for comparison
Bilateral DVT with presumed PE
D-Dimer over 20
Bilateral DVT
Echo with RV dilatation
Tachycardia slightly better
He is still refusing to go on heparin.
I had a very long discussion with the patient and also discussed that we could treat any symptoms which were to arise from any reaction from Lovenox or heparin he still refusing.
He is aware about complications and even .
Discussed about IVC filter. Discussed with interventional radiology they only do local anesthesia and no sedation which I made the patient aware he still refusing an IVC filter.
Patient refusing further testing. Wants to avoid anticoagulation.
Elevated troponin-likely secondary to PE
Tachycardia-likely secondary to above
Crohn's disease-not on any treatment-Last colonoscopy was done through in 2022 - ' everything was fine ' per mom
IBS-C - Not on treatment
Nephrolithiasis - CT scan performed March 19 reviewed. Report printed out and provided to patient and family. One 2 mm nephrolith noted in the medial aspect of the proximal left ureter unchanged compared to previous CT. No hydronephrosis.
Mild vitamin D deficiency-replacement ordered
GERD- Not taking PPI now
Protein calorie malnutrition-dietary evaluation. Discussed about patient to take Ensure. He declined.
DVT Prophylaxis- Refusing Lovenox. Would not use SCDs with this DVT.
DNR
Dispo - patient and mother requesting hospice consult, their goal is comfort and avoidance of invasive treatment or testing. Patient appears to be of sound mind and able to make his own decisions. Patient's family cannot take care of him and they
are requesting placement in a fdc. Case management to assist. Hospice consulted.
Anticipated Discharge: 24 - 48 hours
Subjective/Interval History
-
Date of Service: March 21, 2025
patient seen and examined. Complaining of restlessness.
Objective Data
-
Vital Signs:
Vital Signs
Temp Pulse Resp BP Pulse Ox
98.6 F 110 20 99/84 97
03/21/25 03:40 03/21/25 06:00 03/21/25 06:00 03/21/25 06:00 03/21/25 08:00
I&O
03/20/25 03/21/25 03/22/25
06:59 06:59 06:59
Intake Total 600 / 600 600 / 600
Output Total 275 / 275
Balance 600 / 600 325 / 325
Review of Systems
-
History Source: Patient
All other systems: Reviewed and negative
--- NOTE | 2025-03-21 11:43 | HOSPNOTE ---
Hospice referral received. Reviewed case, patient does not meet inpatient hospice at this time. Attending in agreement. Reviewed patient would be better at SNF with hospice. CM updated to send referrals- reviewed that zip codes are in [place] and I
am not certain that we are affiliated with any SNFs in [place] and they may have to go with preferred hospice of the facility. Reviewed to please let hospice know if they can help in anyway.
--- NOTE | 2025-03-21 11:52 | W.PN.CARDCBS ---
Today's Communication / Plan
-
Will defer goals of care discussion to primary team
We will sign off, please recall as needed
Impression / Plan
-
Impression:
Dilated RV consistent with likely PE
b/l DVT
s/p Atrial Tachycardia, remains sinus tachycardia
Elevated troponin at 2
Elevated D-dimer greater than 20
Lower extremity edema
Poor oral intake
Psychiatric history including anxiety depression, off all medications
Chronic pain
Significant noncompliance with medical recommendations
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
Crohn's with history of terminal ileum resection
History of renal calculi and lithotripsy
Pt is DNR
Plan:
Suspect tachycardia is secondary to PE
Patient refusing further testing and treatment
He is DNR. He does not want to be resuscitated or intubated.
Hospice consult pending.
Discussed with patient's mother over the phone
We will sign off. Please recall as needed.
Progress Note - A Auxiliary
Subjective
Date of Service: March 21, 2025
No acute overnight events. Telemetry reviewed showing sinus tachycardia. Not reporting any chest pain or shortness of breath. Does feel that his lower extremities as well as fingers have been swollen.
Objective
Labs:
03/20/25 06:00
03/20/25 06:00
Labs
Hgb Cancelled 03/20/25 06:00
Hct Cancelled 03/20/25 06:00
Plt Count Cancelled 03/20/25 06:00
APTT Cancelled 03/20/25 01:00
Sodium Cancelled 03/20/25 06:00
Potassium Cancelled 03/20/25 06:00
BUN Cancelled 03/20/25 06:00
Creatinine Cancelled 03/20/25 06:00
Glucose Cancelled 03/20/25 06:00
Troponins
03/19/25 03/20/25 03/20/25
18:09 01:00 05:30
Troponin I 2.020 H* Cancelled Cancelled
03/20/25 03/21/25
11:30 01:00
Troponin I Cancelled Cancelled
Vital Signs and I&O:
Vital Signs
Temp Pulse Resp BP Pulse Ox
98.6 F 110 20 99/84 97
03/21/25 03:40 03/21/25 06:00 03/21/25 06:00 03/21/25 06:00 03/21/25 08:00
Vital Signs
Temp Pulse Resp BP Pulse Ox
98.6 F 110 20 99/84 97
03/21/25 03:40 03/21/25 06:00 03/21/25 06:00 03/21/25 06:00 03/21/25 08:00
Intake & Output
03/19/25 03/20/25 03/21/25 03/22/25
06:59 06:59 06:59 06:59
Intake Total 600 / 600 600 / 600
Output Total 275 / 275
Balance 600 / 600 325 / 325
Physical Exam
Physical Exam
Gen: NAD, AA
HEENT: NC/AT, sclera anicteric
Neck: No JVD
CV: Tachycardic, regular
Lungs: CTAB
Abd: S/ND
Ext: B/l LE edema
Skin: Warm, dry
Neuro: Non-focal
--- NOTE | 2025-03-21 15:40 | PTCARENOTE ---
Called into room, pt states that if he has a sweizure he does not want it treated. Dr Arias .
--- NOTE | 2025-03-21 18:32 | PTCARENOTE ---
Called to pt room he asked if he were in 10/10 pain if we would giive him propofol. Also pt not eating .
[2025-03-22] MEDS: LOVENOX SC ×2 (00:05→13:45)
--- NOTE | 2025-03-22 00:45 | PTCARENOTE ---
Pt informing this RN he is having issue with one of the tech perfume and the other tech turning on the lights. Emotional support given to Pt and reassurance that this RN will do her best to answer the call gagnon and help with needs. Pt refusing BP at
this time, saying 'it hurts to be on my skin'. Pt will let this RN known when it is ok to take BP during shift. Education given and emotional support given. Father of Pt sharing Pt concerns about unwanted medication and treatment if he has an
'episode' of extreme pain and becomes angry. Pt than asking RN same question later in shift. Education given to the best of this RN's ability explaining intervention would happen if Pt endangers self or endangers staff, other riggs his wishes would
be followed. Pt appeared to respond positively and with understanding. Pt did ask if there is any other kind of electrolyte drink the hospital offers other than Gatorade. Unknown to this RN question asked to JANITORIAL MANAGER when on floor and at this time no
other drink is known. Pt informed and other options discuses. Call gagnon within reach/ Warm blanket given.
--- NOTE | 2025-03-22 02:42 | PTCARENOTE ---
Pt continues to be in pain and tearful at times only accepting warm blankets for comfort. Pt continues to politely refuse BP's and other care. Emotional support given as tolerated.
--- NOTE | 2025-03-22 04:08 | PTCARENOTE ---
Pt yelling out for help. Call gagnon within reach. Pt in severe pain. Pt refusing any pain medication at this time but is hopeful for 'Propofol' so he does not need to feel anything anymore when he is on hospice. Pt continues to refuse bp's and temps.
--- NOTE | 2025-03-22 07:53 | W.PN.HOSP.TC ---
Addendum entered and electronically signed by Nic Arias DO 03/22/25 16:00:
Severe protein calorie malnutrition of chronic illness
Addendum entered and electronically signed by Nic Arias DO 03/22/25 15:25:
Spoke with neurologist. Patient refusing any further testing, including brain MRI.
Psychiatry assessed the patient today and they believe that he has capacity to make decisions.
Case management looking into placement.
Addendum entered and electronically signed by Nic Arias DO 03/22/25 14:42:
Spoke with hospice nurse. Patient complaining of severe pain in his legs and back.
Patient requesting pain relief with morphine. Hospice nurse in agreement with starting morphine as needed.
Patient's goals of care are primarily relief of pain and suffering. Quality of life is his main concern.
He does not want to actively treat acute medical conditions including DVT or PE. Understands the risks of not treating, including risk of .
Can start low-dose oral morphine as needed.
Awaiting follow-up input from neurology and psychiatry.
Original Note:
Today's Communication/Plan
-
Check bladder scan
Hospice to discuss with patient, address goals of care
Assessment / Plan
Assessment / Plan
Gen-awake, alert, NAD, sitting on the side of the bed with legs dangling
HEENT-NC, AT, anicteric, clear oral mm
Neck-supple
CV-reg, no M, +S1/S2
Lungs-clear B/L
Abd-soft, NT, ND
Ext-bilateral lower extremity edema
Musculoskeletal-no cyanosis, clubbing
Skin-warm and dry
Neuro-grossly non-focal
Psych-calm, cooperative
Bilateral DVT with presumed PE
D-Dimer over 20
Bilateral DVT
Echo with dilated and hypokinetic RV, dilated RA. Very technically difficult and limited study.
Tachycardia slightly better
Patient refusing anticoagulation.
I had a very long discussion with the patient and also discussed that we could treat any symptoms which were to arise from any reaction from Lovenox or heparin he still refusing.
He is aware about complications and even .
Discussed about IVC filter. Discussed with interventional radiology they only do local anesthesia and no sedation which I made the patient aware he still refusing an IVC filter.
Patient refusing further testing. Wants to avoid anticoagulation.
Elevated troponin-likely secondary to PE
Tachycardia-likely secondary to above
Crohn's disease-not on any treatment-Last colonoscopy was done through in 2022 - ' everything was fine ' per mom
IBS-C - Not on treatment
Nephrolithiasis - CT scan performed March 19 reviewed. Report printed out and provided to patient and family. One 2 mm nephrolith noted in the medial aspect of the proximal left ureter unchanged compared to previous CT. No hydronephrosis.
Mild vitamin D deficiency-replacement ordered
GERD- Not taking PPI now
Protein calorie malnutrition-dietary evaluation. Discussed about patient to take Ensure. He declined.
DVT Prophylaxis- Refusing Lovenox. Would not use SCDs with this DVT.
DNR
Dispo - patient and mother requesting hospice consult, their goal is comfort and avoidance of invasive treatment or testing. Patient appears to be of sound mind and able to make his own decisions. Patient's family cannot take care of him and they
are requesting placement in a correction. Case management to assist. Hospice consulted.
However, I see no hospice diagnosis. I firmly believe that patient requires psychiatric evaluation but he is refusing to speak with psychiatry.
Anticipated Discharge: Within 24 hours
Subjective/Interval History
-
Date of Service: March 22, 2025
Patient seen and examined. Complaining of not feeling well, lack of sleep, no urine output.
Objective Data
-
Vital Signs:
Vital Signs
Temp Pulse Resp BP Pulse Ox
98.0 F 127 16 105/70 95
03/21/25 19:40 03/22/25 04:00 03/22/25 04:00 03/21/25 16:00 03/22/25 04:00
I&O
03/21/25 03/22/25 03/23/25
06:59 06:59 06:59
Intake Total 600 / 600 480 / 480
Output Total 275 / 275 375 / 375
Balance 325 / 325 105 / 105
Review of Systems
-
History Source: Patient
All other systems: Reviewed and negative
--- NOTE | 2025-03-22 09:11 | PTCARENOTE ---
Pt stood and voided 200 . Could not lay down for bladder scan .Bladder scan attempted standing nothing visualized . Mother here to speak with Hospice. Pt remains triggered by everything. Remains in a brief that he has had on for days . Attempts to
get him to change it has failed.
--- NOTE | 2025-03-22 10:07 | PTCARENOTE ---
Hospice here to see pt. Pt has been calling out
--- NOTE | 2025-03-22 11:16 | HOSPNOTE ---
Long meeting with patient and mom. I discussed hospice and the philosophy and determined we could use protein calorie malnutrition as the terminal diagnosis since patient has lost a considerable amount of weight. The issue that arises is the patient
states he is unable to take all the medications we use in hospice care stating they give him a paradoxical effect and make symptoms worse. The family is unable to take care of patient at home and placement would be needed. CM will place referrals.
Attending and I spoke at length and will continue to follow patient and come up with the best plan. More information to follow.
--- NOTE | 2025-03-22 11:27 | PTCARENOTE ---
Dr Akers here to seept and mother
--- NOTE | 2025-03-22 13:26 | PTCARENOTE ---
Pt was screaming in the room mother is pacing the narayan. Mother now in room crying, pt is not screaming anymore but wants copies of hid bloodwork . Both want to know what is the next step, both told finding a place for him will take time.
--- NOTE | 2025-03-22 14:05 | W.PN.NEURO.1 ---
Today's Communication / Plan
-
Patient refusing medications, will not use medication to treat pain
Patient having movement issues which are functional in nature
would check blood work for potential metabolic etiology for DVTs
if possible, would check MRI of brain with and without contrast
smoking cessation
patient should be considered to undergo intensive psychotherapy
not evident that patient would benefit from lumbar puncture at this time, unless significant changes seen on neuroimaging
Neuro Assessment/Plan
Assessment
head CT 08/2024 imgs rev'd, normal
Most likely psychotic depression based on the patient's delusions of inability to function and severe depression
Possible complex regional pain syndrome I (RSD), a disorder of sensory processing due to abnormal functional connectivity in the brain.
Initial management would include medications, he's refusing all at this time.
Plan
Patient refusing medications, will not use medication to treat pain
Patient having movement issues which are functional in nature
would check blood work for potential metabolic etiology for DVTs
if possible, would check MRI of brain with and without contrast
smoking cessation
patient should be considered to undergo intensive psychotherapy
not evident that patient would benefit from lumbar puncture at this time, unless significant changes seen on neuroimaging
Will follow as needed.
Subjective/Objective
Subjective Data
Date of Service: March 22, 2025
'I can't move.
[place] is torture.'
Prior medications include Quetiapine, Escitalopram
Objective Data
Vital Signs
Temp Pulse Resp BP Pulse Ox
36.7 C 121 14 105/70 95
03/21/25 19:40 03/22/25 11:00 03/22/25 11:00 03/21/25 16:00 03/22/25 11:00
Lab Results
03/20/25 06:00
03/20/25 06:00
APTT Cancelled 03/20/25 01:00
Sodium Cancelled 03/20/25 06:00
Potassium Cancelled 03/20/25 06:00
BUN Cancelled 03/20/25 06:00
Glucose Cancelled 03/20/25 06:00
Calcium Cancelled 03/20/25 06:00
Phosphorus Cancelled 03/20/25 06:00
Vitamin B12 577 pg/ml (174-679) 03/19/25 12:28
Ur Buprenorphine Negative (Negative) 03/19/25 15:43
Patient Allergies
cefaclor [From Ceclor] Allergy (Verified 03/19/25 12:39)
Hives
dexamethasone [From Decadron] Adverse Reaction (Verified 03/19/25 12:39)
restless
droperidol Adverse Reaction (Verified 03/19/25 12:39)
Unknown
prednisone Adverse Reaction (Verified 03/19/25 12:39)
manic aggressive behavior
Review of Systems
-
History Source: Patient and Family
All other systems: Reviewed and negative
EENT: Swallowing Difficulty
Physical Exam
-
General: No Apparent Distress and Appears Stated Age
Eyes: Round OU, [place] Conjunctivae and No Ptosis
HEENT: Anicteric and Moist Mucous Membranes
Neck: Full Range of Motion
Respiratory: No Dyspnea
Cardiac: No JVD
GI: Non-distended
Skin: Unremarkable
Extremities: No Clubbing, No Cyanosis and No Edema
Psych: Negative Intact Judgement/Insight
Extended Neurological Exam
Mood & Affect: Depressed
Attention Span & Concentration: Awake, Alert and Interactive
Memory: Unremarkable
Tremor: Hand Tremor Absent and Head Tremor Absent
Speech: Quality Unremarkable and Quantity Unremarkable
Cranial Nerve II: Left Eye: Visual [place] Grossly Intact
Cranial Nerve II: Right Eye: Visual [place] Grossly Intact
Cranial Nerve VII: Facial Symmetry: Normal Facial Symmetry
Cranial Nerve VIII: Hearing: Unremarkable Hearing to Normal Conversational Volume
Muscle Strength, Overall: Spontaneously Moves
Coordination: Reaches for Objects without Difficulty
Data Reviewed
-
Labs: Report Reviewed
Reviewed with: Physician, Patient and Family
Old Records: Summarized
Past History
Past History
ED Past Medical History: Psychiatric (Anxiety/depression) and Other (Crohn's disease. Kidney stones)
ED Past Surgical History: Urological (Lithotripsy 09/18) and Other (Terminal ileum removed)
Social History
Tobacco: Smoker
Alcohol: None
Personal: Single
Living: with family (lives with father)
Employment: Not employed
Medications
-
Medications:
Generic Name Dose Route Start Last Admin
Trade Name Freq PRN Reason Stop Dose Admin
Acetaminophen 650 mg 03/19/25 22:28
Acetaminophen 325 Mg Tablet PO 04/16/25 22:27
Q4HPRN PRN
mild pain/MCKEON/temp> 100.4F
Bisacodyl 10 mg 03/19/25 22:28
Bisacodyl 10 Mg Rectal Suppository RECTAL 04/16/25 22:27
Q45TMDH PRN
constipation
Cholecalciferol 10 mcg 03/20/25 11:30 03/22/25 08:08
Cholecalciferol (Vitamin D3) 10 Mcg Tablet (400 Units) PO 04/17/25 11:29 Not Given
DAILY BONNIE
Enoxaparin Sodium 50 mg 03/20/25 00:00 03/22/25 13:45
Enoxaparin Sodium 60 Mg/0.6 Ml Syringe SC 04/17/25 00:00 Not Given
Q12H BONNIE
Polyethylene Glycol 17 grams 03/19/25 22:28
Polyethylene Glycol Powder 17 Grams Packet PO 04/16/25 22:27
DAILYPRN PRN
constipation
Senna/Docusate Sodium 1 tablet 03/19/25 22:28
Docusate W/Senna (Rhonda-Colace) Tablet PO 04/16/25 22:27
BIDPRN PRN
constipation
Sodium Chloride 0 flush 03/19/25 22:00
Sodium Chloride 0.9% (Flush) Syringe IV 04/16/25 21:59
PER PROTOCOL BONNIE
Thiamine HCl 100 mg 03/19/25 22:28 03/22/25 08:08
Thiamine 100 Mg Tablet PO 04/16/25 22:27 Not Given
BID BONNIE
--- NOTE | 2025-03-22 15:03 | CHAP ---
Addendum entered by Marquita Harding 03/22/25 16:30:
Did have further conversation with Lavell, focused on his struggles and fears. Will come again tomorrow.
Original Note:
Emotional and spiritual support provided. Patient prefers to be called 'Lavell' instead of Marco. He shared his story of pain and challenges with treatments and after-effects. After a time he said talking was causing pain. I suggested we 'titrate'
our conversation into smaller chunks and he agreed with thanks. I will return later today.
--- NOTE | 2025-03-22 15:04 | W.PN.UPDATE ---
Update Note
Progress Note Update
Pt seen with mother present to assess his capacity for medical decisions. Discussed with nursing staff- pt is refusing all medications, not eating, drinking limited water, not allowing any nursing care, sitting on the side of bed with lights off.
Hospice saw pt; reportedly he asked for Propofol. Pt states he will consider a Fentanyl patch. Pt has hx of treatment with benzodiazepines, which he stopped about 10 months ago. He was also on Remeron for years, more recently on Seroquel which he
stopped abruptly 3 months ago. Pt c/o multiple symptoms of severe sensitivity to stimuli, which causes 'terror, rage, crying...' Pt states nights are 'torture,' states he has no quality of life. Pt states he cannot lie down, has to stay sitting.
Pt reports he cannot tolerate any medication, thus his refusal of anticoagulation tx, despite understanding the risks. Pt is convinced psychotropic medications affected his brain function. Pt is alert, oriented, with sensorium intact. Speech is
coherent, thought clear/goal-directed with some circumstantiality. No signs of actual psychosis; has somatic preoccupation/obsessions as noted above. Pt states he feels kidney pain each time he drinks water, although he did sip water during our
conversation without any apparent reaction. Pt has legal document at nursing station designating his parents as agents/decision-makers if he lacks capacity. Pt's mother states she can't manage with him at home, has been his care-ribbon winder.
Reviewed Outpatient record at [facility].
Imp: Unspecified Anxiety/ Depressive d/o. Hx of CHANDU. Unspecified Personality d/o. R/o Somatic symptom d/o
Capacity for medical decisions appears mostly intact; parents are pt's designated agents and are already closely involved in his treatment decisions
Rec: Outpatient therapy, continue f/u with [facility] when medically stable. Pt declines psychotropic medications, but said he will consider a trial of low-dose Propranolol for anxiety symptoms
Will follow
--- NOTE | 2025-03-22 15:31 | PN.CDI ---
CDI
- -
CDI:
Physician Documentation Request
Admit Date: 03/20/25 09:13
Dear Doctor Juana ,
Please review the following and provide your response in the progress notes.
Clinical Indicators:
Pt admitted with FTT/ PE /DVTs /refusing treatment
Documented in the record Cachexia/ BMI 18.9
Documented per H&P and progress notes, ' Protein calorie malnutrition-dietary evaluation. Discussed about patient to take Ensure. He declined. '
Nutrition consult 03/21, 'Current BW: (03/19) 113 lbss 8.609 oz BMI: 18.9 (normal). Weight history (09/08/24) 152 lbs. This is a 25.7% BW loss over 6 months (significant).Patient meets AND and ASPEN criteria for severe protein calorie malnutrition of
chronic disease due to a loss of more than 10% BW over 6 months and less than 75% of estimated nutrition needs met over the past month. ...'
If possible, please provide in your progress notes, additional specificity regarding the severity of the malnutrition:
Severe protein calorie Malnutrition
Other (please specify)
[place] Criteria (ACP Hospitalist 2017)
2 or more criteria must be present for either
non severe or severe malnutrition
Note that the criteria differs related to the
presence of an acute or chronic illness
Acute Illness Chronic Illness
Energy Intake Non Severe: <75% for >7 days Non Severe: <75% for >1 month
Severe: <50% for >5 days Severe: <75% for >1 month
Weight Loss Non Severe: 1-2% over 1 week Non Severe: 5% over 1 month
5% over 1 month 7.5% over 3 months
7.5% over 3 months 10% over 6 months
1 year N/A 20% over 1 year
Severe: >2% over 1 week Severe: >5% over 1 month
>5% over 1 month >7.5% over 3 months
>7.5% over 3 months >10% over 6 months
1 year N/A >20% over 1 year
Body Fat Non Severe: Mild Decrease Non Severe: Mild Loss
Severe: Moderate Decrease Severe: Severe Loss
Muscle Mass Non Severe: Mild Decrease Non Severe: Mild Loss
Severe: Moderate Decrease Severe: Severe Loss
Fluid Accumulation Non Severe: Mild Accumulation Non Severe: Mild Accumulation
Severe: Moderate to severe Severe: Moderate to severe
accumulation accumulation
Reduced Cat Scan Tech Strength Non Severe: N/A Non Severe: N/A
Severe: Measurably reduced Severe: Measurably reduced
Use of terms such as suspected, likely, concern for, or probable (associated with a specific diagnosis that is being evaluated, monitored, or treated as if it exists) are acceptable and can be coded in the inpatient setting, when documented at the
time of discharge.
Thank you,
Keshia Ortiz RN
CDI Specialist
[facility] [employer]
Please use your independent medical judgment in providing your response.
[2025-03-22] MEDS: ROXANOL ORAL CONCENTRATE 2.5 MG PO (16:02)
--- NOTE | 2025-03-22 16:04 | CM ---
CM reviewed pt with Dr Arias and Hospice/[facility]
Bedside meeting with pt and mother
He is requesting LTC SNF placement, will need MA
Plan for Hospice at SNF due to malnutrition
Thorough PASRR screen completed and pt will require level II eval due to recent 201 and PHP
Plan for SNF placement in the [place] area with Hospice
Add'l SNF referrals sent
Level II paperwork completed and faxed to [facility]
Assessment scheduling pending- awaiting appt time/date
Discharge Disposition- LTC at SNF with Hospice and level II
[2025-03-22 17:28] LABS: Vitamin B1, Whole Blood 103 nmol/L (70-180)
--- NOTE | 2025-03-22 18:00 | PTCARENOTE ---
Pt to [facility] [address] via [facility] without incident
--- NOTE | 2025-03-22 18:00 | PTCARENOTE ---
Received pt from IMU with IMU RN and PCT at bedside, no vital signs taken due to patient refusing them. Pt not allowing this RN to assess skin at this time, see assessement documentation on worklist. Pt requesting that all lights are turned off, no
food or water, pt is to be left alone. Pt oriented to call gagnon and room, pt in tears at this time, assisted by one to take 3 steps to bed from wheelchair. No new orders at this time.
--- NOTE | 2025-03-23 06:10 | PTCARENOTE ---
Patient continues to refuse cares overnight; hygiene, vital signs, etc. refused to change brief. Offered pain medication; pt declines although reports severe pain throughout. emotional support given. pt requesting a drink with electrolytes this
morning. uses call gagnon appropriately.
[2025-03-23 07:18] VITALS: BP 108/79
[2025-03-23] MEDS: LOVENOX SC ×2 (11:09)
[2025-03-23 13:02] VITALS: BP 127/73; PULSE 121; O2SAT 100
[2025-03-23 15:10] VITALS: BP 114/80
--- NOTE | 2025-03-23 16:35 | W.PN.UPDATE ---
Update Note
Progress Note Update
patient seen chart reviewed. spoke with nursing, hospice nurse, and with cm. the patient was admitted for failure to thrive. he does have hx of depression. he told me he last felt 'normal ' in october however the sx of which he currently complains
have been going on for about a year. he feels his sx which include intense pain and weird sensations have caused him to stop eating. he has lost up to 60 lbs. he believes this is all due to wd from bzp. he took one mg klonopin tid for many years
prescribed by his pcp who in the end gave him a two month supply and told him to detox himself. he did taper sarah and even attending a rehab program. he has not taken bzp for about nine months but believes all of his sx are from benzodiazepine
withdrawal. he was hosp at [facility] in . he refused all meds suggested. he refuses all meds here as well including thiamine and has refused testing to assess cardiopulmonary issues whichi appear to be serious. he fears testing will exacerbate his
pain and discomfort. he has pedal edema which is likely due to protein depletion but he insists he has hydronephrosis. his films do not show this but that does not convince him otherwise. he does have non obstructing kidney stones. he has
bilateral dvt's in lower ext but has refused lovenox although understands a PE could kill him. his bun is currently 30 tropinin elevated hgb 18.3 . the patient has hx of anxiety admits he feels depressed and that life is not workth living bc of
his pian. he lives w his father and parents are mpoa. they agree with hospice for him.
this patient said a number of things which concern me. he believes that bzp wd is the main cause of all of his sx and that ingestion of foods and meds only exacerbate his sx. in my opinion this conviction may represemt a delusion and psychosis. he
told me 'my brain is hypersensitive to everything including food and everything (i eat) causes horrific agony'. he told me ' water does not absorb properly ...this happens w severe cases of bzp wd.' he met w hospice nurse and he and parents had
seemingly agreed to hospice but today he is unsure re hospice and want to go to snf. of note he was given a small po dose of morphine for his pain and hospice nurse told me he immediately felt relief though this is unlikely. other psychiatrists
who have seen him felt he had medical decision making capacity. this is not so clear to me as he seems to me to be misinformed about the nature of his illness. it is very unlikely his symptoms are caused by bzp wd. i would suggest that he is
depressed w psychosis and somatization too may play a role. i explored w him whether he would consider ect of tms or ketamine. he said emphatically no. his parents seem to support his decision making . he was last seen at [facility] in the and i
will take a look at that chart and speak to dr vazquez subsequently
patient has hx of crohn's and kidney stones [employer] WORK[employer]
--- NOTE | 2025-03-23 16:39 | W.PN.HOSP.TC ---
Today's Communication/Plan
-
labs
Assessment / Plan
Assessment / Plan
Gen-awake, alert, NAD, sitting on the side of the bed with legs dangling
HEENT-NC, AT, anicteric, clear oral mm
Neck-supple
CV-reg, no M, +S1/S2
Lungs-clear B/L
Abd-soft, NT, ND
Ext-bilateral lower extremity edema
Musculoskeletal-no cyanosis, clubbing
Skin-warm and dry
Neuro-grossly non-focal
Psych-calm, cooperative, flat affect
Bilateral DVT with presumed PE
D-Dimer over 20
Bilateral DVT
Echo with dilated and hypokinetic RV, dilated RA. Very technically difficult and limited study.
Tachycardia slightly better
Patient refusing anticoagulation.
I had a very long discussion with the patient and also discussed that we could treat any symptoms which were to arise from any reaction from Lovenox or heparin he still refusing.
He is aware about complications and even .
Discussed about IVC filter. Discussed with interventional radiology they only do local anesthesia and no sedation which I made the patient aware he still refusing an IVC filter.
Patient refusing further testing. Wants to avoid anticoagulation.
Elevated troponin-likely secondary to PE
Tachycardia-likely secondary to above
Crohn's disease-not on any treatment-Last colonoscopy was done through in 2022 - ' everything was fine ' per mom
IBS-C - Not on treatment
Nephrolithiasis - CT scan performed March 19 reviewed. Report printed out and provided to patient and family. One 2 mm nephrolith noted in the medial aspect of the proximal left ureter unchanged compared to previous CT. No hydronephrosis.
Mild vitamin D deficiency-replacement ordered
GERD- Not taking PPI now
Severe Protein calorie malnutrition -dietary evaluation. Discussed about patient to take Ensure. He declined.
DVT Prophylaxis- Refusing Lovenox. Would not use SCDs with this DVT.
DNR
Dispo - patient would like SNF placement. At this point in time he remains undecided about hospice. Now he is requesting labs to be checked, as he is concerned about his electrolytes. Labs ordered. I asked him if we find an abnormality, would he
allow us to treat it. His reply was 'it depends'.
Social work is actively working on finding placement.
Father updated at the bedside.
Anticipated Discharge: 24 - 48 hours
Subjective/Interval History
-
Date of Service: March 23, 2025
Patient seen/examined. No change in how he feels.
Objective Data
-
Vital Signs:
Vital Signs
Temp Pulse Resp BP Pulse Ox
97.9 F 118 16 114/80 98
03/23/25 15:10 03/23/25 15:10 03/23/25 15:10 03/23/25 15:10 03/23/25 15:10
I&O
03/22/25 03/23/25 03/24/25
06:59 06:59 06:59
Intake Total 480 / 480 960 / 960
Output Total 375 / 375 1025 / 1025
Balance 105 / 105 -65 / -65
Review of Systems
-
History Source: Patient
All other systems: Reviewed and negative
--- NOTE | 2025-03-23 17:21 | PTCARENOTE ---
Patient refusing scheduled medications and hygiene throughout this RN's shift, allowed tech to get scheduled vital signs, allowed this RN and tech to assist in andreas care and changing into new brief. Patient AAOX3, anxious and flat, requires all
lights off in room for comfort. Patient asking this RN for his 'urine to be tested,' made aware, labs and outstanding UA ordered. Patient aware, patient cooperated for lab draw.
[2025-03-23 17:31] LABS: % Basophils 0.3 % (0-2); % Eosinophils 0.5 % (0-6); % Immature Granulocytes 0.6 % (0-0.5); % Lymphocytes 20.3 % (20.5-51.1); % Monocytes 9.3 % (1.7-9.3); Absolute Eosinophils 0.1 10^3/uL (0-0.7); Absolute Immature Granulocytes 0.1 10^3/uL (0-0.05); Absolute Lymphocytes 2.2 10^3/uL (1.2-3.4); Absolute Neutrophils 7.4 10^3/uL (1.4-6.5); Hematocrit 44.6 % (39.0-52.0); Hemoglobin 16.6 g/dL (13.0-18.0); Mean Corp Hgb Conc. 37.2 g/dL (33.0-37.0); Mean Corpuscular Hgb 32.1 pg (27.0-31.0); Mean Corpuscular Volume 86.3 fL (80.0-94.0); Mean Platelet Volume 11.7 fL (7.4-10.4); Nucleated Red Blood Cells % 0.2 % (-); Platelet Count 113 10^3/uL (130-400); Red Blood Cell Count 5.17 10^6/uL (4.70-6.10); Red Cell Dist. Width 12.6 % (11.5-14.5); White Blood Cell Count 10.7 10^3/uL (4.8-10.8)
[2025-03-23 17:44] LABS: ALT (SGPT) 127 U/L (0-50); AST (SGOT) 112 U/L (17-59); Alkaline Phosphatase 74 U/L (38-126); Blood Urea Nitrogen 31 mg/dl (9-20); Calcium 8.9 mg/dl (8.4-10.2); Carbon Dioxide 29 mmol/L (22-30); Chloride 88 mmol/L (98-107); Estimated Creatinine Clearance 94 ml/min; Glucose 119 mg/dl (70-99); Potassium 3.8 mmol/L (3.5-5.1); Sodium 127 mmol/L (135-145); Total Bilirubin 2.2 mg/dl (0.2-1.3); eGFR > 60.00
--- NOTE | 2025-03-23 18:01 | DOWNTIME ---
There was a [employer] Downtime on 03/23/2025 from 1230 to 03/23/2025 at 1550. Downtime documentation of patient's care, including medication administrations, has been reconciled in the electronic record per guidelines. Refer to the
patient's paper chart under the miscellaneous tab to see printed paper medication records and downtime forms.
[2025-03-23 23:15] VITALS: BP 109/83
[2025-03-24] MEDS: LOVENOX SC ×3 (00:09→23:02)
--- NOTE | 2025-03-24 01:13 | PTCARENOTE ---
Pt AAOx3. Pt remains sitting on side of bed. Pt refusing medication at this time. Pt allowing vitals. Call gagnon within reach.
[2025-03-24 07:05] VITALS: BP 114/82
[2025-03-24 08:19] LABS: Direct Bilirubin 0.4 mg/dl (0.0-0.4); Magnesium 2.2 mg/dl (1.6-2.3); Phosphorus 3.1 mg/dl (2.5-4.5)
[2025-03-24 09:49] LABS: Osmolality Serum 269 mOsm/kg (275-300)
--- NOTE | 2025-03-24 12:49 | CM ---
CM following re: discharge planning.
Reviewed pt's chart, has been meeting with the pt yesterday many times and had a long conversation with the pt and his mother today.
Pt made it very clear he will not take any medications because 'they affected my brain' and I will not eat because 'it causes many different problems to my body'. Pt clearly expressed his understanding of the consequences of not eating and not
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
symptoms that is pain'. Pt made it very clear he wants hospice care to manage his symptoms. Pt stated: 'I do not want to live my life like this, I do understand i will and I do want to be treated with dignity and respect'. Emotional support
offered and provided during entire meeting. Pt stated: 'I do understand that my parents cannot take care of me anymore and I would like to go to a [facility] with hospice'.
Both pt and his mother were notified that [facility] denied a referral and they are aware that [facility] might offer a bed. pt's mother stated that [facility] locates just 2 miles away from her house and she will be able to meet her son
often. Both pt and his mother are aware of a challenging process of [facility] placement and they expressed their understanding and asked to help. Also, pt and his mother requested [facility] and [facility]. Referral made.
CM spoke to [facility] executive director Collins and she requested additional information. Additional clinical faxed to [facility].
PT and OT evaluation noted - pt requires total care and per PT pt reported he is not interested in physical improvement.
Pt evaluated by [facility] for level II PASRR today at 9:00 , case worked Lacy. Awaiting for determination.
hospice coordinator following.
D/C plan: preferred and accepted SNF for a fci care with hospice care.
CM will follow with discharge plan updates as hospitalization progresses
--- NOTE | 2025-03-24 13:04 | PTCARENOTE ---
Pt refusing meds and care today, pt in tears over orange slice being delivered on his food tray this AM. Emotional support provided, back rub and warm blanket given. Pt ate more for breakfast today than usual, in appreciative spirits to this RN for
comfort. No new orders at this time.
--- NOTE | 2025-03-24 14:03 | W.PN.HOSP.TC ---
Today's Communication/Plan
-
Continue current efforts
Assessment / Plan
Assessment / Plan
Gen-awake, alert, NAD, sitting on the side of the bed with legs dangling
HEENT-NC, AT, anicteric, clear oral mm
Neck-supple
CV-reg, no M, +S1/S2
Lungs-clear B/L
Abd-soft, NT, ND
Ext-bilateral lower extremity edema
Musculoskeletal-no cyanosis, clubbing
Skin-warm and dry
Neuro-grossly non-focal
Psych-calm, cooperative, flat affect
Bilateral DVT with presumed PE
D-Dimer over 20
Bilateral DVT
Echo with dilated and hypokinetic RV, dilated RA. Very technically difficult and limited study.
Tachycardia slightly better
Patient refusing anticoagulation.
I had a very long discussion with the patient and also discussed that we could treat any symptoms which were to arise from any reaction from Lovenox or heparin he still refusing.
He is aware about complications and even .
Discussed about IVC filter. Discussed with interventional radiology they only do local anesthesia and no sedation which I made the patient aware he still refusing an IVC filter.
Patient refusing further testing. Wants to avoid anticoagulation.
Hyponatremia -low serum osmolarity noted. Suspect hypovolemic and low solute intake. Urine studies pending. Offered him normal saline IV but he refused as he believes that normal saline IV will trigger all his symptoms. I tried to explain to him
that his reasoning makes no sense as it is only salt water and his body already has sodium chloride. He refuses to agree to saline infusion.
Elevated LFTs -transaminases and bilirubin. Unclear etiology.
Acute thrombocytopenia -noted. Unclear etiology. Possibly related to DVTs in both legs.
Elevated troponin-likely secondary to PE
Tachycardia-likely secondary to above
Crohn's disease-not on any treatment-Last colonoscopy was done through in 2022 - ' everything was fine ' per mom
IBS-C - Not on treatment
Nephrolithiasis - CT scan performed March 19 reviewed. Report printed out and provided to patient and family. One 2 mm nephrolith noted in the medial aspect of the proximal left ureter unchanged compared to previous CT. No hydronephrosis.
Mild vitamin D deficiency-replacement ordered
GERD- Not taking PPI now
Severe Protein calorie malnutrition -dietary evaluation. Discussed about patient to take Ensure. He declined.
DVT Prophylaxis- Refusing Lovenox. Would not use SCDs with this DVT.
DNR
Dispo - patient would like SNF placement. I firmly believe that this patient requires ongoing psychiatric care. I agree with Dr. Castillo that he has depression with psychosis and somatization.
I also agree that he lacks decision-making capacity as he does not truly understand his actual diagnosis.
I tried to explain to the patient that we have not diagnosed him with a neurologic disorder. I explained that he has mental illness and that is the root cause of his symptoms.
Patient immediately dismissed this possibility and insists that he has underlying medical condition that is not diagnosed or treated. However, he refuses further workup at the same time.
I believe he should be transferred to inpatient psychiatric care. Discussed with Dr. Castillo, ECT is a good option.
Mother updated at the bedside.
Anticipated Discharge: > 48 hours
Subjective/Interval History
-
Date of Service: March 24, 2025
Patient seen and examined. Feels the same as yesterday. No new complaints.
Objective Data
-
Vital Signs:
Vital Signs
Temp Pulse Resp BP Pulse Ox
97 F 120 20 114/82 94
03/24/25 07:05 03/24/25 07:05 03/24/25 07:05 03/24/25 07:05 03/24/25 13:06
I&O
03/23/25 03/24/25 03/25/25
06:59 06:59 06:59
Intake Total 960 / 960 780 / 780
Output Total 1025 / 1025 850 / 850
Balance -65 / -65 -70 / -70
Review of Systems
-
History Source: Patient
All other systems: Reviewed and negative
[2025-03-24 15:00] VITALS: BP 113/81
--- NOTE | 2025-03-24 15:35 | W.PN.UPDATE ---
Update Note
Progress Note Update
patient seen chart reviewed. discussed with dr vazquez and nursing. mother at bedside. long discussion of patient's history as provided by mother and patient. mr velarde has been seen by psych for many years. as a youngster mom said he 'stopped
pooping' when he was [age] years old. it sounds as though he suffered from encopresis until age [age] or more. he was dx adhd as well and took stimulants. he saw the same psychiatrist for many years he reported with some bitterness (this man is now
) who prescribed 'four or five ' medications at a time which patient believes contributed to his condition today. mother said she believes her son started with 'depression and anxiety' which has become at this point something else entirely.
patient continues to feel that the medications he has taken have wrought havoc with his body and caused sensitivity to many stimuli including foods with taste and have interfered with water metabolism among many other sx. mother directed me to
literature she left in the chart which i will read. i did tell patient and his mom that i did not doubt he was suffering. his pain is real but the issue at hand is understanding where that pain comes from and that is where we differ. it is my
concern that the pain comes from a psychiatric illness; he believes this is not so and that it is a direct result of neurological effects of psych meds he has taken over the years and bzp withdrawal. my issue is whether it is ethical to refer him
to hospice when he is not terminal. would consider a meeting of the ethics committee. one could also argue that if he went to hospice perhaps with some time and nutritional support maybe just maybe things would improve although there is also the
medical treatment which is being refused eg the dvt which could become pulmonary emboli and could result in serious consequences which is at issue here. i don't have a simple answer.
[2025-03-24 15:44] LABS: Urine Albumin 2+ (Neg - Trace); Urine Bilirubin Negative (Negative); Urine Character Clear (Clear); Urine Color Yellow; Urine Glucose Negative (Negative); Urine Ketone Negative (Negative); Urine Leukocyte Negative (Negative); Urine Nitrite Negative (Negative); Urine Occult Blood 1+ (Negative); Urine Urobilinogen 2+ (Neg - 1+); Urine pH 6.5 (5.0-9.0)
--- NOTE | 2025-03-24 15:49 | HOSPNOTE ---
If patient continues to eat he will not qualify for protein calorie malnutrition under hospice care, we will continue to follow if placement is within our territory. Seeking SNF placement. I have had multiple discussions with mother and patient.
[2025-03-24 16:05] LABS: Urine Bacteria Few (Negative); Urine Squamous Cell 0-2 /LPF (Few); Urine White Cell 0-2 /HPF (0-5)
[2025-03-24 16:08] LABS: Osmolality Urine 706 mOsm/kg (300-900)
[2025-03-24 16:16] LABS: Urine Sodium < 5 mmol/L (30-90)
[2025-03-24] MEDS: MORPHINE ORAL SOLUTION 2.5 MG PO (17:40)
[2025-03-24 23:26] VITALS: BP 116/83
[2025-03-25 08:00] VITALS: BP 119/68
--- NOTE | 2025-03-25 11:13 | W.PN.UPDATE ---
Update Note
Progress Note Update
patient seen chart reviewed. discussed with dr vazquez, cm, hospice nurse and hospital assistant grocery store manager who is ethics committee access spec. mother is at bedside. there have been many discussions re mr velarde. i also consulted a psychiatrist who is expert in
legal guidelines about mr velarde. yesterday he was requesting hospice and the issue arises again as to whether it is ethical to refer a 34 year old man w a psych illness to hospice. my pricing consultant opined that it would be likely that if we went to
court to order psych rx the court would appoint his parents as guardians and they were not disagreeing with him re hospice. playing devil's advocate this physician suggested that 'there are things we (medical establishment ) does not know although
this physician too thought the patient suffered from psychiatric issues. today mr velarde is of a different mind and is thinking about snf to get stronger. i am told me is eating somewhat more but still less than he needs to maintain his weight.
we talked about what he needs to do to get to rehab if that is what he still wishes to do. he needs to accept rx for dvt and start working with PT. he needs to eat . we talked at length about DVT rx. he has some rather unusual ideas about what would
happen to his kidneys if the swelling in his legs would decrease. he believes all that fluid would burroughs to his kidneys and cause 'hydronephrosis' i did explain to him that this is not likely the case patient will talk to dr vazquez about
anticoagulation and dr vazquez will order whatever patient agrees to . i read the papers he offered to me about akathisia which he believes he is suffering. propranolol is a recognized rx of akathisia. i have ordered it he will 'think about'
taking it. we will be convening an ethics panel today to discuss this case at one pm till follow total time 75 minutes including discussions with pt and mom reading material he gave to me and other consultations not including ethics panel this
afternoon.
[2025-03-25] MEDS: INDERAL 10 MG PO (13:28)
--- NOTE | 2025-03-25 13:40 | W.PN.HOSP.TC ---
Today's Communication/Plan
-
Continue current efforts
Assessment / Plan
Assessment / Plan
Gen-awake, alert, NAD, sitting on the side of the bed with legs dangling
HEENT-NC, AT, anicteric, clear oral mm
Neck-supple
CV-reg, no M, +S1/S2
Lungs-clear B/L
Abd-soft, NT, ND
Ext-bilateral lower extremity edema
Musculoskeletal-no cyanosis, clubbing
Skin-warm and dry
Neuro-grossly non-focal
Psych-calm, cooperative, flat affect
Bilateral DVT -with presumed PE
Echo with dilated and hypokinetic RV, dilated RA. Very technically difficult and limited study.
Tachycardia slightly better
Patient refusing anticoagulation.
I had a very long discussion with the patient and also discussed that we could treat any symptoms which were to arise from any reaction from Lovenox or heparin, he is still refusing.
He is aware about complications and even .
Discussed about IVC filter. Discussed with interventional radiology they only do local anesthesia and no sedation which I made the patient aware, he is still refusing an IVC filter.
Patient refusing further testing. Wants to avoid anticoagulation. Offered Eliquis or Lovenox, he absolutely refuses oral anticoagulation. May possibly consider Lovenox. However he has been refusing every dose in the hospital.
Hyponatremia -low serum osmolarity noted. Suspect hypovolemic and low solute intake. Urine studies with high urine osmolarity, and low urine sodium. Offered him normal saline IV but he refused as he believes that normal saline IV will trigger all
his symptoms. I tried to explain to him that his reasoning makes no sense as it is only salt water and his body already has sodium chloride. He refuses to agree to saline infusion.
Elevated LFTs -transaminases and bilirubin. Unclear etiology.
Acute thrombocytopenia -noted. Unclear etiology. Possibly related to DVTs in both legs.
Elevated troponin-likely secondary to PE
Tachycardia -likely secondary to pulmonary embolism.
Crohn's disease-not on any treatment-Last colonoscopy was done through in 2022 - ' everything was fine ' per mom
IBS-C - Not on treatment
Nephrolithiasis - CT scan performed March 19 reviewed. Report printed out and provided to patient and family. One 2 mm nephrolith noted in the medial aspect of the proximal left ureter unchanged compared to previous CT. No hydronephrosis.
Mild vitamin D deficiency-replacement ordered
GERD- Not taking PPI now
Severe Protein calorie malnutrition -dietary evaluation. Discussed about patient to take Ensure. He declined.
Constipation -no bowel movement so far in the hospital.
DVT Prophylaxis- Refusing Lovenox. Would not use SCDs with this DVT.
DNR
Dispo - patient would like SNF placement. At this point in time he has changed his mind and does not want hospice. However he continues to refuse care in the hospital. It has been explained to the patient multiple times that if he refuses care in
the hospital then a skilled rehab facility will not accept him either.
Multidisciplinary ethics committee meeting held today with decision to try to get him home with family with help of visiting nursing. Recommend ongoing outpatient psychiatric care. Psychiatry service here believes that inpatient psychiatric
hospital will not accept him due to his refusal to take care of himself and eat.
Anticipated Discharge: > 48 hours
Subjective/Interval History
-
Date of Service: March 25, 2025
Patient seen and examined. No new complaints.
Objective Data
-
Vital Signs:
Vital Signs
Temp Pulse Resp BP Pulse Ox
97.3 F 123 16 128/85 99
03/25/25 08:00 03/25/25 13:28 03/25/25 08:00 03/25/25 13:28 03/25/25 08:00
I&O
03/24/25 03/25/25 03/26/25
06:59 06:59 06:59
Intake Total 780 / 780 1550 / 1550
Output Total 850 / 850 875 / 875
Balance -70 / -70 326 / 778
Review of Systems
-
History Source: Patient
All other systems: Reviewed and negative
--- NOTE | 2025-03-25 14:06 | CHAP ---
ad hoc ethics panel met to discuss Lavell's case. After exploring various options the recommendation is to see if he can return to his father's home with additional caregiver support, which his insurance allows. LOUIS Rich will speak to Lavell and his
parents and pursue this path.
[2025-03-25] MEDS: LOVENOX SC (14:37)
[2025-03-25 15:00] VITALS: BP 119/87
--- NOTE | 2025-03-25 15:45 | CM ---
CM following re: discharge planning.
Reviewed pt's chart, met with pt. pt's mother and pt's father at bedside.
Ethical committee meeting held today. The notion of the ethical committee meeting to discuss an ethical dilemma regarding pt's care and navigation of next level of care.
Pt has been refusing medications bringing his delusional thoughts and paranoia that medications will harm his body and even food gives symptoms and pain.
SNF level of care is not feasible now because pt is not medically stable giving his PE, B/L DVT and not taking medications.
penitentiary placement with hospice care brings ethical obligation to whether or not pt is competent regarding understanding of his illness and refuses meds.
Legal guardianship option does not open the door for pt's treatment, pt has a right to refuse medical treatment.
Pt's father and mother , they do have partners and per mother their son is 'destroying' their new relationships. Pt's mother is paid caregiver and she provides 8 hours of caregiver services 2 time per week and pt's father house. Pt's mother
stated she is exhausted driving back and fourth to care for her son and per parents their son does not listen to them and they are always in aggravating situation.
The decision is made to looking for any possibility to get the pt to community based living with all necessary services including getting the pt an independent apartment with 24/7 care/services.
Pt has Nurse senior case manager from [facility] [place]: Kami Israel [phone]
Pt has service counselor: Gauri Parra [phone]
marketing technology coordinator #2: Christel Acosta [phone].
CM spoke to nurse senior case manager Li and service counselor Gauri and they both agree that getting the pt to community based living will be the best option and CM requested that pt will have at least 16 hours of caregiver services daily with
further plan to get the pt to an independent apartment.
CM discussed it with the pt and parents present and pt agrees with following plans: community based with caregiver services. Pt is aware that SNF as an option is available but pt must to be in agreement to take medications and to be medically
stable. Pt stated he prefers community based plan.
CM with pt's agreement, has a separate meeting with pt's mother and pt's father. Pt's mother expressed her agreement that she will not be a caregiver and she confirmed that she feels she aggravates her son more that calming him down. Pt's father
expressed his agreement to bring the pt to his house with 16 hours of caregiver services and both mother and father stated they will help to find an independent apartment.
Both pt and his parents are aware that it will take some time to navigate community based services and they expressed their agreement.
At this point a plan is to get the pt to community based living, temporarily to father's house with caregiver services till an independent apartment is available.
CM will follow to assist pt with discharge plan updates as hospitalization progresses
[2025-03-25 22:56] VITALS: BP 120/81
[2025-03-26] MEDS: LOVENOX SC ×3 (00:06→23:47)
[2025-03-26 07:06] VITALS: BP 99/69
[2025-03-26] MEDS: INDERAL 10 MG PO (08:00)
--- NOTE | 2025-03-26 12:31 | W.PN.HOSP.TC ---
Today's Communication/Plan
-
Discharge planning
Assessment / Plan
Assessment / Plan
Gen-awake, alert, NAD, sitting on the side of the bed with legs dangling
HEENT-NC, AT, anicteric, clear oral mm
Neck-supple
CV-reg, no M, +S1/S2
Lungs-clear B/L
Abd-soft, NT, ND
Ext-bilateral lower extremity edema
Musculoskeletal-no cyanosis, clubbing
Skin-warm and dry
Neuro-grossly non-focal
Psych-calm, cooperative, flat affect
Bilateral DVT -with presumed PE
Echo with dilated and hypokinetic RV, dilated RA. Very technically difficult and limited study.
Tachycardia slightly better
Patient refusing anticoagulation.
I had a very long discussion with the patient and also discussed that we could treat any symptoms which were to arise from any reaction from Lovenox or heparin, he is still refusing.
He is aware about complications and even .
Discussed about IVC filter. Discussed with interventional radiology they only do local anesthesia and no sedation which I made the patient aware, he is still refusing an IVC filter.
Patient refusing further testing. Wants to avoid anticoagulation. Offered Eliquis or Lovenox, he absolutely refuses oral anticoagulation. May possibly consider Lovenox. However he has been refusing every dose in the hospital.
Hyponatremia -low serum osmolarity noted. Suspect hypovolemic and low solute intake. Urine studies with high urine osmolarity, and low urine sodium. Offered him normal saline IV but he refused as he believes that normal saline IV will trigger all
his symptoms. I tried to explain to him that his reasoning makes no sense as it is only salt water and his body already has sodium chloride. He refuses to agree to saline infusion.
Elevated LFTs -transaminases and bilirubin. Unclear etiology.
Acute thrombocytopenia -noted. Unclear etiology. Possibly related to DVTs in both legs.
Elevated troponin-likely secondary to PE
Tachycardia -likely secondary to pulmonary embolism. Heart rate improved with low-dose liquid propranolol that was started by psychiatry for anxiety. Patient asking to increase the dose but would hold off on doing so given relative hypotension.
Crohn's disease-not on any treatment-Last colonoscopy was done through in 2022 - ' everything was fine ' per mom
IBS-C - Not on treatment
Nephrolithiasis - CT scan performed March 19 reviewed. Report printed out and provided to patient and family. One 2 mm nephrolith noted in the medial aspect of the proximal left ureter unchanged compared to previous CT. No hydronephrosis.
Mild vitamin D deficiency-replacement ordered
GERD- Not taking PPI now
Severe Protein calorie malnutrition -dietary evaluation. Discussed about patient to take Ensure. He declined.
Constipation -no bowel movement so far in the hospital.
DVT Prophylaxis- Refusing Lovenox. Would not use SCDs with this DVT.
DNR
Dispo -Home with family or into the community with social support and visiting nursing. Social work assisting. Medically stable for discharge.
Father updated at the bedside.
Anticipated Discharge: 24 - 48 hours
Subjective/Interval History
-
Date of Service: March 26, 2025
Patient seen and examined. No new complaints.
Objective Data
-
Vital Signs:
Vital Signs
Temp Pulse Resp BP Pulse Ox
97.9 F 97 16 99/69 95
03/26/25 07:06 03/26/25 08:00 03/26/25 07:06 03/26/25 08:00 03/26/25 08:06
I&O
03/25/25 03/26/25 03/27/25
06:59 06:59 06:59
Intake Total 1550 / 1550 2330 / 2330
Output Total 875 / 875 972 / 972
Balance 675 / 675 1358 / 1358
Review of Systems
-
History Source: Patient
All other systems: Reviewed and negative
--- NOTE | 2025-03-26 12:44 | W.PN.UPDATE ---
Update Note
Progress Note Update
Patient is sitting in the room, eating some and overall cooperative with answering questions. He still in refusing the anticoagulant treatment for DVT as he is convinced it would be painfull and he would feels as if fire was going into his veins. He
admitted to anhedonia but denied hopelessness or suicidal thoughts. He was eating and drinking some although he stated it was painful.
Father who was present for part of the visit told me that the idea of him living independently with a companian might help as he apparently need to be in a low stimulus environment.
Will continue to F/U.
[2025-03-26 15:10] VITALS: BP 98/69
[2025-03-26 22:52] VITALS: BP 101/69
[2025-03-27 07:05] VITALS: BP 96/64
[2025-03-27] MEDS: INDERAL 10 MG PO ×2 (07:44→16:45)
--- NOTE | 2025-03-27 10:48 | W.PN.HOSP.TC ---
Today's Communication/Plan
-
Discharge planning
Assessment / Plan
Assessment / Plan
Gen-awake, alert, NAD, sitting on the side of the bed with legs dangling
HEENT-NC, AT, anicteric, clear oral mm
Neck-supple
CV-reg, no M, +S1/S2
Lungs-clear B/L
Abd-soft, NT, ND
Ext-bilateral lower extremity edema
Musculoskeletal-no cyanosis, clubbing
Skin-warm and dry
Neuro-grossly non-focal
Psych-calm, cooperative, flat affect
Bilateral DVT -with presumed PE
Echo with dilated and hypokinetic RV, dilated RA. Very technically difficult and limited study.
Tachycardia slightly better
Patient refusing anticoagulation.
I had a very long discussion with the patient and also discussed that we could treat any symptoms which were to arise from any reaction from Lovenox or heparin, he is still refusing.
He is aware about complications and even .
Discussed about IVC filter. Discussed with interventional radiology they only do local anesthesia and no sedation which I made the patient aware, he is still refusing an IVC filter.
Patient refusing further testing. Wants to avoid anticoagulation. Offered Eliquis or Lovenox, he absolutely refuses oral anticoagulation. Today he says he might consider starting Lovenox. So far has been refusing all doses.
Hyponatremia -low serum osmolarity noted. Suspect hypovolemic and low solute intake. Urine studies with high urine osmolarity, and low urine sodium. Offered him normal saline IV but he refused as he believes that normal saline IV will trigger all
his symptoms. I tried to explain to him that his reasoning makes no sense as it is only salt water and his body already has sodium chloride. He refuses to agree to saline infusion.
Elevated LFTs -transaminases and bilirubin. Unclear etiology.
Acute thrombocytopenia -noted. Unclear etiology. Possibly related to DVTs in both legs.
Elevated troponin-likely secondary to PE
Tachycardia -likely secondary to pulmonary embolism. Heart rate improved with low-dose liquid propranolol that was started by psychiatry for anxiety. Patient asking to increase the dose but would hold off on doing so given relative hypotension.
Crohn's disease-not on any treatment-Last colonoscopy was done through in 2022 - ' everything was fine ' per mom
IBS-C - Not on treatment
Nephrolithiasis - CT scan performed March 19 reviewed. Report printed out and provided to patient and family. One 2 mm nephrolith noted in the medial aspect of the proximal left ureter unchanged compared to previous CT. No hydronephrosis.
Mild vitamin D deficiency-replacement ordered
GERD- Not taking PPI now
Severe Protein calorie malnutrition -dietary evaluation. Discussed about patient to take Ensure. He declined.
Constipation -no bowel movement so far in the hospital.
DVT Prophylaxis- Refusing Lovenox. Would not use SCDs with this DVT.
DNR
Dispo -Home with family or into the community with social support and visiting nursing. Social work assisting. Medically stable for discharge.
Discussed with psychiatry.
Anticipated Discharge: Within 24 hours
Subjective/Interval History
-
Date of Service: March 27, 2025
Patient seen and examined. No new complaints.
Objective Data
-
Vital Signs:
Vital Signs
Temp Pulse Resp BP Pulse Ox
97.6 F 99 18 96/64 99
03/27/25 07:05 03/27/25 07:44 03/27/25 07:05 03/27/25 07:44 03/27/25 07:53
I&O
03/26/25 03/27/25 03/28/25
06:59 06:59 06:59
Intake Total 2330 / 2330 2275 / 2275
Output Total 972 / 972 1475 / 1475
Balance 1358 / 1358 800 / 800
Review of Systems
-
History Source: Patient
All other systems: Reviewed and negative
[2025-03-27] MEDS: LOVENOX 50 MG SC (12:26)
--- NOTE | 2025-03-27 13:11 | W.PN.UPDATE ---
Update Note
Progress Note Update
Patient is doing better even by his own admission. Has agreed to Lovenox for DVT, states it was painful but seems to understand that it is a benefit/risk ratio as it is with any medication or procedure.
At this point seems interested in an appartment with a enamel applier.
Not acutely psychotic, denies hopelessness or suicidal thoughts. States the Propranolol helps to some extent with anxiety, not interested in raising the dose.
Will continue F/U.
[2025-03-27 13:29] LABS: % Basophils 0.4 % (0-2); % Eosinophils 0.8 % (0-6); % Immature Granulocytes 1.2 % (0-0.5); % Lymphocytes 21.1 % (20.5-51.1); % Monocytes 10.6 % (1.7-9.3); % Neutrophils 65.9 % (42.2-75.2); Absolute Eosinophils 0.1 10^3/uL (0-0.7); Absolute Immature Granulocytes 0.1 10^3/uL (0-0.05); Absolute Lymphocytes 1.5 10^3/uL (1.2-3.4); Absolute Monocytes 0.8 10^3/uL (0.1-0.6); Absolute Neutrophils 4.8 10^3/uL (1.4-6.5); Hematocrit 42.1 % (39.0-52.0); Mean Corp Hgb Conc. 35.6 g/dL (33.0-37.0); Mean Corpuscular Hgb 32.5 pg (27.0-31.0); Mean Corpuscular Volume 91.1 fL (80.0-94.0); Mean Platelet Volume 10.2 fL (7.4-10.4); Nucleated Red Blood Cells % 0 % (-); Platelet Count 178 10^3/uL (130-400); Red Blood Cell Count 4.62 10^6/uL (4.70-6.10); White Blood Cell Count 7.3 10^3/uL (4.8-10.8)
[2025-03-27 13:44] LABS: ALT (SGPT) 50 U/L (0-50); AST (SGOT) 32 U/L (17-59); Albumin 3.6 g/dl (3.5-5.0); Alkaline Phosphatase 63 U/L (38-126); Blood Urea Nitrogen 20 mg/dl (9-20); Carbon Dioxide 37 mmol/L (22-30); Chloride 88 mmol/L (98-107); Estimated Creatinine Clearance 107 ml/min; Glucose 84 mg/dl (70-99); Potassium 4.3 mmol/L (3.5-5.1); Sodium 129 mmol/L (135-145); Total Bilirubin 1.2 mg/dl (0.2-1.3); Total Protein 6.6 g/dl (6.3-8.2); eGFR > 60.00
[2025-03-27 15:05] VITALS: BP 101/71
--- NOTE | 2025-03-27 15:57 | PTCARENOTE ---
Patient kept asking for IVFs; patient stated that IVFs are the only thing that will help with his kidney pain; Dr. Arias notified. Labs obtained per order. NSS @ 80 ml/hr ordered. Patient refused IVFs. This RN offered patient PRN dose of Inderal
for his anxiety. Patient refused Inderal at this time.
[2025-03-27 23:18] VITALS: BP 95/66
[2025-03-28] MEDS: LOVENOX SC ×3 (01:00→23:56)
[2025-03-28 07:10] VITALS: BP 106/74
[2025-03-28] MEDS: INDERAL 10 MG PO (08:15)
[2025-03-28 15:34] VITALS: BP 107/73
--- NOTE | 2025-03-28 15:48 | CM ---
CM following re: discharge planning.
Reviewed pt's chart, met with pt and pt's father at bedside. Spoke to pt's mother to update on discharge plan progress.
CM received a Letter of determination from [place] Department of Human Services Office of Mental health and Substance abuse services stated that pt does not meet criteria for further evaluation by the Office. it means pt is not Target admission to a
SNF.
CM receives a letter of level of care determination that states that pt is eligible for senior living level of care.
CM left messages to program and research coordinator Gauri and Christel and they did not return call back.
CM spoke to [facility] SN[facility] director enterprise sales Damion and she confirmed she is looking for to offer a bed and she is requested to work with [facility] hospice - their contracted hospice provider. CM faxed to [facility] Letter of Determination from [employer]
Department of Human Services and level of care determination letter from [facility] AAA to [phone]
CM spoke to [facility] agency service representative Ellen [phone] and she requested to fax a referral to [phone]. Pt's clinical faxed to [facility] hospice for a review.
CM met with pt and pt's father, different aspect of next level of cafe discussed and pt made it very clear again that he thinks that hospice care is the most appropriate level of care at this time and if he gets better he will be off hospice and
will go to rehab. Pt's father supports pt's plan.
LOUIS spoke to pt's mother on the phone and she stated that line servicer Gauri called her and she told she will not be able to get any services for pt in a community and to get an apartment will take up to 3-5 years and pt must to stay with
his father. Per pt's mother pt cannot stay with huis father and cannot stay with her neither. LOUIS pointed out to pt's mother that we are working on the direction to place that pt to [facility] with hospice services and CM got a mixed reaction from
pt's mother. Explanations of different level ,of care explained in details and pt's mother expressed her understanding. pt's mother stated that [pt's father has ADD and she 'just have in spectrum depression'. It was not clear the way pt's mother
diagnosed herself.
CM met with pt and [facility] hospice agency service representative Jeramie and had a long conversation with the pt. Pt expressed his clear understanding of hospice philosophy, expressed his strong agreement to go to [facility] with [facility] hospice. per [facility]
care hospice agency service representative Jeramie, he will meet with the pt again to laws to sign a consent and after pt will have up to 72 hours to get to [facility] and he will be signed in on hospice when arrives there. Per Jeramie, pt has been evaluated by [facility] hospice team and pt is meeting criteria for hospice level of care. Jeramie made it very clear to the pt that they will support him, will treat with dignity, respect and comfort aspect. Pt expressed his agreement.
D/C plan: most likely [facility] with [facility] hospice.
CM will follow with discharge plan updates as hospitalization progresses
--- NOTE | 2025-03-28 16:19 | CM ---
CM following re: discharge planning.
Reviewed pt's chart, met with pt and pt's father at bedside. Spoke to pt's mother to update on discharge plan progress.
CM received a Letter of determination from [place] Department of Human Services Office of Mental health and Substance abuse services stated that pt does not meet criteria for further evaluation by the Office. it means pt is not Target admission to a
SNF.
CM receives a letter of level of care determination that states that pt is eligible for group home level of care.
CM left messages to yoga coordinator Gauri and Christel and they did not return call back.
CM spoke to [facility] SN[facility] director translation Damion and she confirmed she is looking for to offer a bed and she is requested to work with [facility] hospice - their contracted hospice provider. CM faxed to [facility] Letter of Determination from [employer]
Department of Human Services and level of care determination letter from [facility] AAA to [phone]
CM spoke to [facility] senior account representative Ellen [phone] and she requested to fax a referral to [phone]. Pt's clinical faxed to [facility] hospice for a review.
CM met with pt and pt's father, different aspect of next level of care discussed and pt made it very clear again that he thinks that hospice care is the most appropriate level of care at this time and if he gets better he will be off hospice and
will go to rehab. Pt's father supports pt's plan.
LOUIS spoke to pt's mother on the phone and she stated that vp cardiovascular service line Gauri called her and she told she will not be able to get any services for pt in a community and to get an apartment will take up to 3-5 years and pt must to stay with
his father. Per pt's mother pt cannot stay with huis father and cannot stay with her neither. LOUIS pointed out to pt's mother that we are working on the direction to place that pt to [facility] with hospice services and CM got a mixed reaction from
pt's mother. Explanations of different level ,of care explained in details and pt's mother expressed her understanding. pt's mother stated that [pt's father has ADD and she 'just have in spectrum depression'. It was not clear the way pt's mother
diagnosed herself.
CM met with pt and [facility] hospice senior account representative Jeramie and had a long conversation with the pt. Pt expressed his clear understanding of hospice philosophy, expressed his strong agreement to go to [facility] with [facility] hospice. per [facility]
care hospice senior account representative Jeramie, he will meet with the pt again to laws to sign a consent and after pt will have up to 72 hours to get to [facility] and he will be signed in on hospice when arrives there. Per Jeramie, pt has been evaluated by [facility] hospice team and pt is meeting criteria for hospice level of care. Jeramie made it very clear to the pt that they will support him, will treat with dignity, respect and comfort aspect. Pt expressed his agreement.
D/C plan: most likely [facility] with [facility] hospice.
CM will follow with discharge plan updates as hospitalization progresses
--- NOTE | 2025-03-28 16:58 | W.PN.HOSP.TC ---
Today's Communication/Plan
-
placement
Assessment / Plan
Assessment / Plan
Awake and alert sitting in a dark room with his legs hanging down. States that he feels better since he came in. States that he is eating a little bit and has had bowel movements a couple times. He still does not feel that he can handle any
medicines. States that he took Lovenox 1 day and then it flared up as neurological condition. He also states that he took morphine which also did not agree with his body. He feels that nobody understands this. I discussed about getting
psychiatric treatment for depression he thinks that his current do worse for him. he wants to go on hospice to a facility as he cannot take care of himself. Stated that hospice will be here to meet with his parents tomorrow.
On examination patient is awake and alert
Cardiovascular system S1-S2 appreciated
Chest clear to auscultation
Abdomen soft
Bilateral lower extremity edema worse than how it was a week ago
#Bilateral DVT -with presumed PE
Echo with dilated and hypokinetic RV, dilated RA. Very technically difficult and limited study.
Tachycardia better
Patient refusing anticoagulation.
he is refusing Lovenox or any other forms of anticoagulation and anticipation of 'worse neurological outcomes'
He is aware about complications and even .
Does not want IVC filter either
#Hyponatremia -low serum osmolarity noted.
Urine studies with high urine osmolarity, and low urine sodium consistent with SIADH. There might be another process also going on since this urine sodium is low this could be low solute intake
Refusing any treatments
#Elevated LFTs -transaminases and bilirubin. Unclear etiology.Improved
#Acute thrombocytopenia -noted. Unclear etiology. Possibly related to DVTs in both legs. Improved
#Elevated troponin-likely secondary to PE
#Tachycardia -likely secondary to pulmonary embolism. Heart rate improved with low-dose liquid propranolol that was started by psychiatry for anxiety. Patient asking to increase the dose but would hold off on doing so given relative hypotension.
#Crohn's disease-not on any treatment-Last colonoscopy was done through in 2022 - ' everything was fine ' per mom
#IBS-C - Not on treatment
#Nephrolithiasis - CT scan performed March 19 reviewed. Report printed out and provided to patient and family. One 2 mm nephrolith noted in the medial aspect of the proximal left ureter unchanged compared to previous CT. No hydronephrosis.
Patient thinks that his hydronephrosis may have come back in the past 1 week despite convincing him that the CAT scan
#Mild vitamin D deficiency-replacement ordered
#GERD- Not taking PPI now
#Severe Protein calorie malnutrition -dietary evaluation. Discussed about patient to take Ensure. He declined.
#Constipation -2 Bms documented.
#DVT Prophylaxis- Refusing Lovenox. Would not use SCDs with this DVT.
#DNR
Dispo -Home with family or into the community with social support and visiting nursing. Social work assisting. Medically stable for discharge.
D/W Nursing.
I sat down and had a long discussion with the patient again offering him symptomatic treatment. We discussed about MRI of the brain/LP he is refusing either. He stated that nobody can help him at this point as any treatment would make his
condition worse. He is prepared to go to a facility on hospice.
Sad Situation.
Anticipated Discharge: Within 24 hours
Subjective/Interval History
-
Date of Service: March 28, 2025
Objective Data
-
Vital Signs:
Vital Signs
Temp Pulse Resp BP Pulse Ox
98.3 F 102 16 107/73 99
03/28/25 15:34 03/28/25 15:34 03/28/25 15:34 03/28/25 15:34 03/28/25 15:34
I&O
03/27/25 03/28/25 03/29/25
06:59 06:59 06:59
Intake Total 2275 / 2275 3235 / 3235
Output Total 1475 / 1475 2750 / 2750
Balance 800 / 800 485 / 485
--- NOTE | 2025-03-28 17:00 | PTCARENOTE ---
Pt refused his afternoon SQ Lovenox injection. Pt offered medication multiple times and said to come back later. Pt stated he wanted to finish eating, then he had CM at bedside, then stated he was on the phone and not a good time, lastly pt stated
he wanted to be bladder scanned due to feeling bloated- Bladder scan 229mL. Upon this RN latest attempt at administration medication Pt stated he had changed his mind and no longer wanted the Lovenox. Pt provided education on importance of
medication. notified of refusal. Call gagnon within reach.
[2025-03-28 23:00] VITALS: BP 108/75
[2025-03-29] MEDS: INDERAL 10 MG PO ×2 (00:35→09:06)
[2025-03-29 06:30] LABS: Blood Urea Nitrogen 22 mg/dl (9-20); Calcium 9.1 mg/dl (8.4-10.2); Carbon Dioxide 36 mmol/L (22-30); Chloride 91 mmol/L (98-107); Estimated Creatinine Clearance > 125 ml/min; Glucose 90 mg/dl (70-99); Potassium 4.8 mmol/L (3.5-5.1); Sodium 131 mmol/L (135-145); eGFR > 60.00
[2025-03-29 07:00] VITALS: BP 102/70
--- NOTE | 2025-03-29 11:35 | W.PN.HOSP.TC ---
Today's Communication/Plan
-
Await Hospice to meet with pt and family.
Assessment / Plan
Assessment / Plan
Awake and alert sitting in a dark room with his legs hanging down. He is leaning back in bed but legs are still hanging down. We discussed about putting his legs in bed and trying elevated. Patient states that it will cause more fluid to come
back to his body and the kidneys will have to handle that which he does not want to.
On examination patient is awake and alert
Cardiovascular system S1-S2 appreciated
Chest clear to auscultation
Muscle wasting noted throughout
Abdomen soft
Bilateral lower extremity edema worse than how it was a week ago
#Bilateral DVT -with presumed PE
Echo with dilated and hypokinetic RV, dilated RA. Very technically difficult and limited study.
Tachycardia better
Patient refusing anticoagulation.
He is refusing Lovenox or any other forms of anticoagulation and anticipation of 'worse neurological outcomes'
He is aware about complications and even .
Does not want IVC filter either
#Hyponatremia -low serum osmolarity noted.
Urine studies with high urine osmolarity, and low urine sodium consistent with SIADH. There might be another process also going on since this urine sodium is lowthis could be low solute intake
Sodium better
Refusing any treatments
#Elevated LFTs -transaminases and bilirubin. Unclear etiology.Improved
#Acute thrombocytopenia -noted. Unclear etiology. Possibly related to DVTs in both legs. Improved
#Elevated troponin-likely secondary to PE. Cards eval appreciated.
#Tachycardia -likely secondary to pulmonary embolism. Heart rate improved with low-dose liquid propranolol that was started by psychiatry for anxiety. Patient asking to increase the dose but would hold off on doing so given relative hypotension.
#Crohn's disease-not on any treatment-Last colonoscopy was done through in 2022 - ' everything was fine ' per mom
#IBS-C - Not on treatment
#Nephrolithiasis - CT scan performed March 19 reviewed. Report printed out and provided to patient and family. One 2 mm nephrolith noted in the medial aspect of the proximal left ureter unchanged compared to previous CT. No hydronephrosis.
Patient thinks that his hydronephrosis may have come back in the past 1 week despite convincing him that the CAT scan
#Mild vitamin D deficiency-replacement ordered
#GERD- Not taking PPI now
#Severe Protein calorie malnutrition -dietary evaluation. Discussed about patient regarding supplements. He declined. Unintentional weight loss more than 10% in 6 months. States that he can only eat certain things.
P.o. intake has improved since the patient has been here.
#Constipation -2 Bms documented.
#DVT Prophylaxis- Refusing Lovenox. Ordered Teds.
#DNR
D/W Nursing.
Discussed with case liner and met with also mom
Patient and mom stated that they spoke to his benzo withdrawal passenger coach driver Ashley in [place]. Ashley recommended that the patient try some antiepileptics. Patient states that he does not want to try any medicines as he fears about the side effects
which in turn will make his conditions worse.
Outside of the room I asked mom if she would want to do a 302 which she declined.
He may meet criteria for hospice for severe protein-calorie malnutrition. He has other conditions such as chronic pain and also untreated DVT and presumed PE. He also has Crohn's disease with thickening of the distal ileum and colitis per CT. He
does not want treatment for any of these conditions.
Psychiatric valuation appreciated on 03/22/2025-patient does have capacity to make decisions and patient's designated agents his mom and dad are also in agreement with his decision to choose hospice. He will have a place at [facility] on hospice.
Level 2 from Department of human services reviewed patient does not meet the mental health criteria for further review.
Hospice to meet with patient and family today
Patient requested to talk to psychiatry again. I have sent a message
Time spent over 50 min
Anticipated Discharge: Today
Subjective/Interval History
-
Date of Service: March 29, 2025
Objective Data
-
Labs:
Laboratory Results
06/03/25
05:37
Sodium 131 L
Potassium 4.8
Chloride 91 L
Carbon Dioxide 36 H
BUN 22 H
Creatinine 0.6 L
Glucose 90
Calcium 9.1
Vital Signs:
Vital Signs
Temp Pulse Resp BP Pulse Ox
98.1 F 92 16 102/70 98
03/29/25 07:00 03/29/25 09:06 03/29/25 07:00 03/29/25 09:06 03/29/25 08:00
I&O
03/28/25 03/29/25 03/30/25
06:59 06:59 06:59
Intake Total 3235 / 3235 2089
Output Total 2750 / 2750 2175 / 2175
Balance 485 / 485 -85 / -85
[2025-03-29] MEDS: LOVENOX 50 MG SC (13:00)
--- NOTE | 2025-03-29 14:27 | W.PN.UPDATE ---
Update Note
Progress Note Update
Pt seen with mother present. He presents the same overall as he did last week, although now he is eating well. Pt finished everything on his lunch plate as we talked. Pt alert, oriented, more engaged, making better eye contact, still sitting on
the side of the bed. Speech coherent/articulate, thought goal-directed with continued preoccupations. Pt has overvalued ideas about his brain and bodily functions, believes (along with his mother) that he has developed sensitivity to everything
due to long-term prescription benzo's which he stopped 10- 11 months ago, as well as more recent medication Seroquel. Pt is taking Propranolol, but states he thinks it is having negative effects. We discussed possibly trying an anticonvulsant/mood
stabilizer, but pt states he expects to have a bad reaction to any med. He states he is considering going back to a low dose of Klonopin or Valium.
Imp: Unspecified Anxiety/ Depressive d/o. Hx of CHANDU. Unspecified Personality d/o. R/o Somatic symptom d/o
Capacity for medical decisions appears mostly intact; parents are pt's designated agents and are in agreement with pt's wishes
Rec: Outpatient therapy, continue f/u with [facility] when medically stable. Reviewed plan for Hospice and prison placement with casey saw operator
will follow
--- NOTE | 2025-03-29 15:23 | CM ---
CM following re: discharge planning.
Reviewed pt's chart, has been meeting with pt and his mother many times during day.
CM met with [facility] hospice media sales representative Jeramie and he confirmed that Dr. Parrish who is a Gas Turbine Assembler at [facility] and at [facility] denied to accept the pt for admission to [facility] and on hospice.
Pt expressed to me his disappointed feelings stating: 'nobody understands my condition and situation that having neurological disorder makes me difficult to take medications and to do therapy and if I need to do it I will try my best. I want to go
to a longterm for rehab'. Pt went to tears and deep crying stating again: 'I have very complicated situation and it seems nobody wants to understand it'. Emotional support offered and provided. CM explained to the pt that in order for him to be
admitted to a SNF he has to take medications, be medical stable and to participate in therapy and to stay in plan of care.
Pt's mother presented during my meeting with the pt, emphasized her suggestions regarding pt's neurological disorder and mostly expressed her guilty feelings.
Please re-consult PT and OT treatment.
CM spoke to Myke Good [facility] environment friendly landscape designer Kami and car servicer Gauri and both agree to step in to help the pt with the next level of care. Both agree to try everything possible to get the pt to a SNF for a short term rehab and they
expressed understanding that it depends on pt's participation and complains to stay in plan of care. It is plan A: SNF for a short term rehab and possibly/probably a [facility] care.
CM initiated the development of plan B - to get the pt to community based living with daily caregiver services and in the future independent housing. food services coordinator Gauri stated she is already initiated a request for approval 16 hours of
caregiver services and works with their housing department on housing. Per Gauri, she already gave a list of potential housing options to pt's mother and pt's father. So far pt's mother and pt's mother did not mention to this CM.
D/C plan: Working progress on plan A - SNF and plan B - community based living with daily caregiver services.
CM will follow with discharge plan updates as hospitalization progresses
[2025-03-29 15:34] VITALS: BP 113/78
[2025-03-30] MEDS: LOVENOX 50 MG SC ×2 (00:58→13:17)
[2025-03-30 07:07] VITALS: BP 103/68
[2025-03-30] MEDS: INDERAL PO (08:04)
[2025-03-30 08:08] LABS: Hematocrit 39.2 % (39.0-52.0); Hemoglobin 13.5 g/dL (13.0-18.0); Mean Corp Hgb Conc. 34.4 g/dL (33.0-37.0); Mean Corpuscular Hgb 32.1 pg (27.0-31.0); Mean Corpuscular Volume 93.3 fL (80.0-94.0); Mean Platelet Volume 9.6 fL (7.4-10.4); Platelet Count 232 10^3/uL (130-400); Red Cell Dist. Width 13.3 % (11.5-14.5); White Blood Cell Count 8.8 10^3/uL (4.8-10.8)
[2025-03-30 08:22] LABS: Blood Urea Nitrogen 23 mg/dl (9-20); Calcium 8.7 mg/dl (8.4-10.2); Carbon Dioxide 31 mmol/L (22-30); Chloride 92 mmol/L (98-107); Estimated Creatinine Clearance > 125 ml/min; Glucose 83 mg/dl (70-99); Potassium 4.8 mmol/L (3.5-5.1); Sodium 129 mmol/L (135-145); eGFR > 60.00
[2025-03-30 09:40] LABS: Osmolality Serum 273 mOsm/kg (275-300)
[2025-03-30 10:42] LABS: Cortisol, Random 22.2 ug/dl
--- NOTE | 2025-03-30 11:47 | W.PN.HOSP.TC ---
Today's Communication/Plan
-
PT OT
Continue Lovenox
Rehab
Assessment / Plan
Assessment / Plan
Awake and alert sitting in a dark room with his legs hanging down. He is leaning back in bed but legs are still hanging down. We discussed about putting his legs in bed and trying elevated. Patient states that it will cause more fluid to come
back to his body and the kidneys will have to handle that which he does not want to.
On examination patient is awake and alert
Cardiovascular system S1-S2 appreciated
Chest clear to auscultation
Muscle wasting noted throughout
Abdomen soft, NT
Bilateral lower extremity edema worse
#Bilateral DVT -with presumed PE
Echo with dilated and hypokinetic RV, dilated RA. Very technically difficult and limited study.
Tachycardia better
Patient is now agreeable to take Lovenox got 2 doses
Does not want IVC filter either
Agreeable to use ORQUIDEA stockings
#Hyponatremia -low serum osmolarity noted.
Urine studies with high urine osmolarity, and low urine sodium consistent with SIADH. There might be another process also going on since this urine sodium is low this could be low solute intake
Sodium up-and-down
Check urine osmolality
#Elevated LFTs -transaminases and bilirubin. Unclear etiology.Improved
#Acute thrombocytopenia -noted. Unclear etiology. Possibly related to DVTs in both legs. Improved
#Elevated troponin-likely secondary to PE. Cards eval appreciated.
#Tachycardia -likely secondary to pulmonary embolism. Heart rate improved with low-dose liquid propranolol that was started by psychiatry for anxiety. Patient asking to increase the dose but would hold off on doing so given relative hypotension.
#Crohn's disease-not on any treatment-Last colonoscopy was done through in 2022 - ' everything was fine ' per mom
#IBS-C - Not on treatment
#Nephrolithiasis - CT scan performed March 19 reviewed. Report printed out and provided to patient and family. One 2 mm nephrolith noted in the medial aspect of the proximal left ureter unchanged compared to previous CT. No hydronephrosis.
Patient thinks that his hydronephrosis may have come back in the past 1 week despite convincing him that the CAT scan did not show it
#Mild vitamin D deficiency-replacement ordered
#GERD- Not taking PPI now
#Severe Protein calorie malnutrition -dietary evaluation. Discussed about patient regarding supplements. He declined. Unintentional weight loss more than 10% in 6 months. States that he can only eat certain things.
P.o. intake has improved since the patient has been here.
#Constipation -2 Bms documented.
#DVT Prophylaxis-started taking Lovenox. Ordered Teds, he is agreeable now.
#DNR
D/W Nursing.
Discussed with case management
Discussed with patient's father on the phone from patient's cell phone in his room.
He was declined for [facility]. Not accepted to hospice
Patient is now wanting to do Lovenox. He is also agreeable for PT OT
We will look at doing SNF
Anticipated Discharge: 24 - 48 hours
Subjective/Interval History
-
Date of Service: March 30, 2025
Objective Data
-
Labs:
Laboratory Results
03/30/25
06:36
WBC 8.8
Hgb 13.5
Hct 39.2
Plt Count 232 D
Sodium 129 L
Potassium 4.8
Chloride 92 L
Carbon Dioxide 31 H
BUN 23 H
Creatinine 0.6 L
Glucose 83
Calcium 8.7
Vital Signs:
Vital Signs
Temp Pulse Resp BP Pulse Ox
98.2 F 93 14 103/68 100
03/30/25 07:07 03/30/25 07:07 03/30/25 07:07 03/30/25 07:07 03/30/25 08:00
I&O
03/29/25 03/30/25 03/31/25
06:59 06:59 06:59
Intake Total 2089 650 / 650
Output Total 2175 / 2175 1575 / 1575 700 / 700
Balance -85 / -85 -925 / -925 -700 / -700
--- NOTE | 2025-03-30 12:33 | W.PN.UPDATE ---
Update Note
Progress Note Update
patient seen chart reviewed. discussed with nursing and with cm mr vargas. the patient is eating more at this point. father at bedside told me that mr velarde is 'eating up a storm'. he is at this point following a very bland carbohydrate diet
but told me he is trying to broaden his choices. he is now desirous of snf which cm is trying to set up. one of the problems has been that patient and family keep changing their mind regularly re disposition. patient has been taking lovenox but
tells me today he has decided that inderal is hurting not helping him and requests that it be dc'ed. will continue to follow
[2025-03-30 13:04] LABS: Vitamin B12 328 pg/ml (239-931)
[2025-03-30 13:49] LABS: TSH 4.36 uIU/ml (0.47-4.68)
--- NOTE | 2025-03-30 13:53 | CM ---
CM following re: discharge planning.
Reviewed pt's chart, met with pt and pt's father at bedside and mother on speaker phone. CM discussed pt's plan of care with MD, psychiatrist, PT, OT, RN.
Pt made a strong opinion to get better, takes Lovenox, participated in PT/OT sessions and pt asked to place him to a SNF for a short term rehab with possibility of a skilled nursing care.
PT and OT evaluations noted - SNF level of cafe recommended. A list of SNFs with terminal gauger supervisor care options discussed with the pt, pt's father and pt's mother who was on speaker phone and they decided to send referrals to a SNFs in areas between
[place] and [place], including areas of [facility], etc.
A referral to many SNFs made. Awaiting for determination.
Pt has Letter of Determination from [place] Department of human Services Office of mental health and substance abuse services confirming thet pt is not [facility] admission and pt has a letter of care determination from [facility] that confirmed that
pt is eligible for long term le\\corbin of care.
edi coordinator from [facility] continues working on securing plan B - returning back to community based living if feasible and supported by pt and his parents.
D/C plan: preferred SNF.
CM will follow with discharge plan updates as hospitalization progresses.
[2025-03-30 14:15] LABS: Osmolality Urine 619 mOsm/kg (300-900)
[2025-03-30 15:03] VITALS: BP 106/74
[2025-03-30 15:31] LABS: Urine Sodium < 5 mmol/L (30-90)
[2025-03-30 23:18] VITALS: BP 104/71
[2025-03-31] MEDS: LOVENOX 50 MG SC ×2 (01:21→13:39)
[2025-03-31 07:19] VITALS: BP 99/70
[2025-03-31 11:29] LABS: Blood Urea Nitrogen 21 mg/dl (9-20); Calcium 9.2 mg/dl (8.4-10.2); Carbon Dioxide 36 mmol/L (22-30); Chloride 94 mmol/L (98-107); Estimated Creatinine Clearance > 125 ml/min; Glucose 81 mg/dl (70-99); Sodium 134 mmol/L (135-145); eGFR > 60.00
--- NOTE | 2025-03-31 12:45 | CM ---
Addendum entered by Hilario De Anda 03/31/25 16:11:
Per Jeannette [facility] keycase assembler [place], pt is approved for SNF level of care at [facility] for 30 days from today 03/31/25 till 04/29/25 with LCD 04/29/25. No review requires, it is 30 days skilled services policy. Auth: [id number]
Auth information forwarded to [facility] reading efficiency course director and she confirmed that pt is accepted for admission and she requested admission tomorrow around 12:00 p.m.
Both pt and his mother are aware, expressed their great satisfactions with discharge [plan outcome. pt's mother stated she will meet her son at [facility] tomorrow and pt's father will be here in the morning to assist with transfer.
pt stated he will not be able to lay down on a stretcher because 'all fluids will go up to kidneys and I will have pain'. Pt requested be transported by wheelchair van to keep his feet down. Pt's mother supports pt's plan.
[facility] to arrange w/c van transport for tomorrow with burr picker time 12:00 p.m. Pt stated he wants to have lunch here. CM will attempt to obtain an auth for wheelchair van with [facility].
[facility] nursing report: [phone]
Discharge instructions fax: [phone]
D/C plan: [facility] tomorrow 04/01/25 for a short term rehab and a continuous churn buttermaker care.
Original Note:
CM following re: discharge planning.
Reviewed pt's chart, met with pt and pt's mother at bedside.
[facility] responded to care port that they will be interested to accept the pt. CM advocates the pt, additional information provided and after talking to pt's mother reading efficiency course director at [facility] confirmed that pt is accepted
for admission when an auth is available.
CM spoke to pt and his mother and both expressed their great satisfaction n with discharge plan outcome and pt's mother stated that [facility] is the best location for pt';s mother and pt's father because it locates in the middle of their
home.
[facility]
Accepting physician Yobani Parra
CM initiated an auth from [facility] for SNF level of care at [facility] by faxing a referral to: [phone].
D/C plan: [facility] for a short term rehab and a continuous churn buttermaker care. Awaiting for an auth.
CM will follow to assist pt with discharge to [facility].
--- NOTE | 2025-03-31 12:47 | W.PN.HOSP.TC ---
Today's Communication/Plan
-
ORQUIDEA stockings
Change Lovenox to NOACs if patient is agreeable
SNF placement
Assessment / Plan
Assessment / Plan
Awake and alert sitting in a dark room with his legs hanging down. He is leaning back in bed but legs are still hanging down. We discussed about putting his legs in bed and trying elevated. Patient states that it will cause more fluid to come
back to his body and the kidneys will have to handle that which he does not want to.
On examination patient is awake and alert
Cardiovascular system S1-S2 appreciated
Chest clear to auscultation
Muscle wasting noted throughout
Abdomen soft, NT
Bilateral lower extremity edema
#Bilateral DVT -with presumed PE
Echo with dilated and hypokinetic RV, dilated RA. Very technically difficult and limited study.
Tachycardia better
Patient is now agreeable to take Lovenox
Discussed about switching to oral anticoagulation, he wants to think about it.
Does not want IVC filter
Agreeable to use ORQUIDEA stockings- Nursing aware.
#Hyponatremia -low serum osmolarity noted.
Sodium better.
#Elevated LFTs -transaminases and bilirubin. Unclear etiology.Improved
#Acute thrombocytopenia -noted. Unclear etiology. Possibly related to DVTs in both legs. Improved
#Elevated troponin-likely secondary to PE. Cards eval appreciated.
#Tachycardia -likely secondary to pulmonary embolism. Heart rate improved with low-dose liquid propranolol that was started by psychiatry for anxiety. Patient asking to increase the dose but would hold off on doing so given relative hypotension.
#Crohn's disease-not on any treatment-Last colonoscopy was done through in 2022 - ' everything was fine ' per mom
#IBS-C - Not on treatment
#Nephrolithiasis - CT scan performed March 19 reviewed. Report printed out and provided to patient and family. One 2 mm nephrolith noted in the medial aspect of the proximal left ureter unchanged compared to previous CT. No hydronephrosis.
Patient thinks that his hydronephrosis may have come back in the past 1 week despite convincing him that the CAT scan did not show it
#Mild vitamin D deficiency-replacement ordered
#GERD- Not taking PPI now
#Severe Protein calorie malnutrition -dietary evaluation. Discussed about patient regarding supplements. He declined. Unintentional weight loss more than 10% in 6 months. States that he can only eat certain things.
P.o. intake has improved since the patient has been here.
#Constipation - Bms documented.
#DVT Prophylaxis-started taking Lovenox. Ordered Teds, he is agreeable now.
#DNR
D/W Nursing.
Discussed with case management
Discussed with patient's mother at bedside
Patient has an accepting facility for rehab
Anticipated Discharge: Within 24 hours
Subjective/Interval History
-
Date of Service: March 31, 2025
Objective Data
-
Labs:
Laboratory Results
03/31/25
09:51
Sodium 134 L
Potassium 5.0
Chloride 94 L
Carbon Dioxide 36 H
BUN 21 H
Creatinine 0.5 L
Glucose 81
Calcium 9.2
Vital Signs:
Vital Signs
Temp Pulse Resp BP Pulse Ox
98.0 F 85 16 99/70 100
03/31/25 07:19 03/31/25 07:19 03/31/25 07:19 03/31/25 07:19 03/31/25 07:19
I&O
03/30/25 03/31/25 04/01/25
06:59 06:59 06:59
Intake Total 650 / 650
Output Total 1575 / 1575 2250 / 2250
Balance -925 / -925 -2250 / -2250
[2025-03-31 15:20] VITALS: BP 103/72
--- NOTE | 2025-03-31 16:18 | W.PN.UPDATE ---
Update Note
Progress Note Update
patient seen chart reviewed. discussed with cm and nsg. mother at bedside. an snf has been found for patient. he is set for dc tomorrow. he is understandably anxious. worries that he will not tolerate the routine...that he will not be able to be
in a room w a roommate...that they may think he is psychiatrically ill and try to commit him. encouraged him not to engulf himself in fear and negativity. there is no perfect place...and no perfect solution. at the outset here he felt no one could
help him and at this point feels he is indeed better for what he experienced here. he told me that i have rehabilitated his image of psychiatry 'slightly' patient is not taking any psych meds at this point. psych signing off.
[2025-03-31 23:00] VITALS: BP 99/66
[2025-04-01] MEDS: LOVENOX 50 MG SC (03:29)
[2025-04-01 08:20] VITALS: BP 113/70
[2025-04-01 08:53] VITALS: BP 113/70
--- NOTE | 2025-04-01 09:39 | CM ---
CM following re: discharge planning.
Reviewed pt's chart, met with pt and spoke to pt's mother over the phone.
Discharge order noted. Both pt and his mother are aware, expressed their agreement and pt stated he is looking forward to go to [facility] and planning to stay there for a custodial care.
Pt is approved for SNF level of care at [facility] for 30 days from today 03/31/25 till 04/29/25 with LCD 04/29/25. No review requires, it is 30 days skilled services policy. Auth: [id number]
Auth information forwarded to [facility] christian education director and she confirmed that pt is accepted for admission today and early discharge time requested.
Per pt very strong request CM arranged w/c van transport with [facility] ambulance with pick and shovel worker time 12:00 p.m. L[place]IS attempted to obtain an auth for wheelchair van with [facility] and was informed that Myke Good no longer approving w/c van transport,
only stretcher.
CM asked the pt again for a possibility to be transported by stretcher and pt in a very unhappy manner stated he will not be able to lay down on a stretcher because 'all fluids will go up to kidneys and I will have pain'. Pt requested be
transported by wheelchair van to keep his feet down. Pt's mother supports pt's plan.
Authorization approval letter with Letter of determination from [place] Department of Human Services Office of Mental Health and Substance abuse services, [place], letter of level of care determination from [facility] faxed again to [facility]
SNF.
[facility] Nurse navigator Kami and program services planner Gauri are aware of pt's discharge, expressed their great satisfaction and they will continue supporting the pt at [facility].
Acute care ambulance transport engineer is aware to bill the hospital for w/c van transport.
[facility] nursing report: [phone]
Discharge instructions fax: [phone]
D/C plan: [facility] today for a short term rehab and a custodial care.
--- NOTE | 2025-04-01 09:43 | W.PN.HOSP.TC ---
Today's Communication/Plan
-
Discharge
Assessment / Plan
Assessment / Plan
Awake and alert sitting in a dark room with his legs hanging down. He is leaning back in bed but legs are still hanging down. We discussed about putting his legs in bed and trying elevated. Patient states that it will cause more fluid to come
back to his body and the kidneys will have to handle that which he does not want to.
On examination patient is awake and alert
Cardiovascular system S1-S2 appreciated
Chest clear to auscultation
Abdomen soft, NT
Bilateral lower extremity edema
#Bilateral DVT -with presumed PE
Echo with dilated and hypokinetic RV, dilated RA. Very technically difficult and limited study.
Tachycardia better
Patient is now agreeable to take Lovenox
Discussed about switching to oral anticoagulation, he wants to think about it and do it at the rehab.
Does not want IVC filter
Wants to wait on ORQUIDEA stockings- He is aware re irreversible damage can also happen.
#Hyponatremia -low serum osmolarity noted.
Sodium better.
#Elevated LFTs -transaminases and bilirubin. Unclear etiology.Improved
#Acute thrombocytopenia -noted. Unclear etiology. Possibly related to DVTs in both legs. Improved
#Elevated troponin-likely secondary to PE. Cards eval appreciated.
#Tachycardia -likely secondary to pulmonary embolism. Heart rate improved with low-dose liquid propranolol that was started by psychiatry for anxiety. Patient asking to increase the dose but would hold off on doing so given relative hypotension.
#Crohn's disease-not on any treatment-Last colonoscopy was done through in 2022 - ' everything was fine ' per mom. Discussed with the patient about high risk of colon cancer with Crohn's disease and the need to get surveillance
colonoscopies. He stated that he is not worried about it and does not want to get them done as he is afraid of the side effects of propofol.
#IBS-C - Not on treatment
#Nephrolithiasis - CT scan performed March 19 reviewed. Report printed out and provided to patient and family. One 2 mm nephrolith noted in the medial aspect of the proximal left ureter unchanged compared to previous CT. No hydronephrosis.
#Mild vitamin D deficiency-replacement ordered. Patient refusing
#GERD- Not taking PPI now
#Severe Protein calorie malnutrition -dietary evaluation. Discussed about patient regarding supplements. He declined. Unintentional weight loss more than 10% in 6 months. States that he can only eat certain things.
P.o. intake has improved since the patient has been here.
#Constipation - Bms documented.
#DVT Prophylaxis-started taking Lovenox. Ordered Teds, he is agreeable now.
#DNR
D/W Nursing.
Discussed with case management
Patient was very appreciative and Thankful of his care.
More than 30 minutes spent in discharge including
Final examination of the patient
Summarizing hospital stay
Instructions for continuing care to all relevant caregivers
Preparation of discharge records, prescriptions, and referral forms
Total time spent (in minutes): 34 min
Anticipated Discharge: Today
Subjective/Interval History
-
Date of Service: April 01, 2025
Objective Data
-
Vital Signs:
Vital Signs
Temp Pulse Resp BP Pulse Ox
98.1 F 101 18 113/70 100
04/01/25 08:20 04/01/25 08:20 04/01/25 08:20 04/01/25 08:20 04/01/25 08:20
I&O
03/31/25 04/01/25 04/02/25
06:59 06:59 06:59
Intake Total 3390 / 3390
Output Total 2250 / 2250 1850 / 1850
Balance -2250 / -2250 1540 / 1540
--- NOTE | 2025-04-01 09:49 | W.DS.TRANS ---
Addendum entered and electronically signed by Abi Cline MD 04/01/25 14:17:
Dictation- [id number]
Original Note:
DC Summary - [employer]
-
Discharge Instructions:
Discharge Diagnosis/Procedures Bilateral DVT with presumed PE
Severe protein calorie malnutrition
Bilateral lower extremity edema
Crohn's disease
History of nephrolithiasis
GERD
Constipation
Diet As tolerated
Activity As tolerated,With assistance
Driving Restrictions No driving
Other Services PT,OT
Instructions:
Stand-Alone Forms:
Changes to Home Medications: Yes
Discharge Medications:
DC Medications w/original date entered in [facility] [employer]
cyanocobalamin (vitamin B-12) 1,000 mcg tablet (Vitamin B-12) 1,000 mcg PO DAILY low normal B12 #0 tabs 03/31/25
enoxaparin 60 mg/0.6 mL subcutaneous syringe 50 mg (0.5 mL) SC Q12H DVT #0 mL 03/31/25
polyethylene glycol 3350 17 gram oral powder packet 17 g PO DAILY Constipation #0 ea 03/31/25
cholecalciferol (vitamin D3) 10 mcg (400 unit) tablet (Vitamin D3) 10 mcg PO DAILY def #30 tabs 04/01/25
Home Medication Changes
all above new
Pending Results: No
[2025-04-01 11:00] VITALS: BP 111/73
[2025-04-01 11:28] VITALS: BP 111/73
== END 2025-04-01 12:23 | DRG 175 ==
LOC: 2 NORTH 09:13
PROVIDERS: Hospitalist; ADMITTING PHYSICIAN Hospitalist; CONSULT PHYSICIAN Nuclear Medicine Nuclear Cardiology; CONSULT PHYSICIAN Psychiatry & Neurology Clinical Neurophysiology; CONSULT PHYSICIAN Psychiatry & Neurology Psychiatry; EMERGENCY PHYSICIAN Emergency Medicine; FAMILY PHYSICIAN Internal Medicine
DX: I26.99 Other pulmonary embolism without acute cor pulmonale (principal); E43 Unspecified severe protein-calorie malnutrition; K50.90 Crohn's disease, unspecified, without complications; F13.239 Sedative, hypnotic or anxiolytic dependence with withdrawal, unspecified; N20.1 Calculus of ureter; E87.1 Hypo-osmolality and hyponatremia; I82.412 Acute embolism and thrombosis of left femoral vein; I82.432 Acute embolism and thrombosis of left popliteal vein; I82.452 Acute embolism and thrombosis of left peroneal vein; I82.442 Acute embolism and thrombosis of left tibial vein; G90.50 Complex regional pain syndrome I, unspecified; R64 Cachexia; I82.411 Acute embolism and thrombosis of right femoral vein; I82.431 Acute embolism and thrombosis of right popliteal vein; I82.451 Acute embolism and thrombosis of right peroneal vein; I82.441 Acute embolism and thrombosis of right tibial vein; Z87.442 Personal history of urinary calculi; K21.9 Gastro-esophageal reflux disease without esophagitis; Z66 Do not resuscitate; F41.9 Anxiety disorder, unspecified; Z80.8 Family history of malignant neoplasm of other organs or systems; Z88.1 Allergy status to other antibiotic agents; F32.A Depression, unspecified; F60.9 Personality disorder, unspecified; M79.7 Fibromyalgia; R62.7 Adult failure to thrive
CPT/HCPCS: 93308; 74176; 80048; 80053; 80306; 81003; 81015; 82248; 82306; 82533; 82607; 83735; 83930; 83935; 84100; 84300; 84425; 84443; 84484; 85025; 85027; 85379; 87086; 92610; 93005; 93970; 96360; 96361; 97116; 97164; 97167; 97535; 99284